=== PATIENT | female | born 1980 | race Asian ===

== ENCOUNTER 2021-09-18 09:07 | Outpatient (CLI) | payer BC, SELFPAY ==
--- NOTE | ~2021-09-18 | MM_ITS ---
EXAMINATION: MM screening zeynep BI w sharri HISTORY: Screening TECHNIQUE: Craniocaudal and mediolateral oblique 3-D tomosynthesis images were obtained and synthetic 2-D images were generated. CAD analysis was submitted and interpreted. COMPARISON: No prior mammogram is available for comparison at this institution. BREAST PARENCHYMAL COMPOSITION: The breasts are heterogeneously dense, which may obscure small masses . FINDINGS: There is no evidence of suspicious mass, calcification, or architectural distortion to sugg est malignancy in either breast. There has been no suspicious interval change. IMPRESSION: 1. No mammographic evidence of malignancy. 2. Recommend routine screening mammography in one year. BI-RADS Category 1: Negative Reviewed, dictated and finalized at location A.
== END 2021-09-18 09:08 | disposition home or self-care (01) ==
LOC: ANHIMG 09:09
PROVIDERS: PCP Emergency Medicine; Visit Provider Emergency Medicine
DX: Z12.31 Encounter for screening mammogram for malignant neoplasm of breast (principal)
CPT/HCPCS: 77063; 77067

== ENCOUNTER 2021-10-31 13:55 | Outpatient (CLI) | payer BC, SELFPAY ==
[2021-11-02 10:27] LABS: Hepatitis Be Antibody Nonreactive; Hepatitis Be Antigen Reactive
[2021-11-06 18:55] LABS: Hepatitis Delta Antibody NEGATIVE
== END 2021-10-31 13:56 | disposition home or self-care (01) ==
LOC: ANHLAB 13:58
PROVIDERS: PCP Emergency Medicine; Visit Provider Internal Medicine Gastroenterology
DX: B19.10 Unspecified viral hepatitis B without hepatic coma (principal)
CPT/HCPCS: 36415; 86692; 86707; 87350

== ENCOUNTER 2022-02-20 01:44 | Emergency (ER) | payer BC, SELFPAY ==
--- NOTE | ~2022-02-20 | CT_ITS ---
EXAMINATION: CT abdomen pelvis wo con DATE: 02/20/2022 03:51 INDICATION: Right abdominal pain to right groin pain. TECHNIQUE: Computed tomography (CT) of the abdomen and pelvis was performed without intravenous contr ast. Automated exposure control and iterative reconstruction technique were employed. The dose-length product was 251.21 mGy-cm. COMPARISON: None. FINDINGS: The visualized portions of the lung bases demonstrate mild atelectasis. No pleural effusion . The heart size is normal. No pericardial effusion. The liver, gallbladder, spleen, pancreas, and ri ght adrenal gland are normal. There is a 3.4 cm mass in left adrenal gland measuring soft tissue atte nuation. There are approximately 3 stones in right kidney measuring up to 8 mm. There is moderate rig ht hydronephrosis. There is a cluster of stones in proximal right ureter measuring up to 9 mm. Left k idney is normal. There are no dilated loops of bowel. The appendix is normal. There are no pathologic ally enlarged lymph nodes. There is no free intraperitoneal fluid. There is mild thoracolumbar spondy losis. IMPRESSION: 1. Cluster of stones in proximal right ureter with moderate right hydronephrosis. 2. Nonobstructing right kidney stones. 3. 3.4 cm left adrenal mass. In the absence of known malignancy, this finding is likely an adenoma. Reviewed, dictated and finalized at location A. IMPRESSION: 1. Cluster of stones in proximal right ureter with moderate right hydronephrosi s. 2. Nonobstructing right kidney stones. 3. 3.4 cm left adrenal mass. In the absence of known malignancy, this finding i s likely an adenoma.
[2022-02-20 01:50] VITALS: BP 155/80; PULSE 77; RESP 18; TEMP 35.8
--- NOTE | 2022-02-20 01:54 | ED.ABDPAIN ---
HPI - Abdominal Pain General Chief Complaint: Abdominal Pain Stated Complaint: Pain Source: patient Mode of arrival: EMS History of Present Illness HPI narrative: 41-year-old female with no significant past medical history presents to the ER with a 2 hour history of -- right flank pain -- nausea with 1 episode of vomiting. -- Patient is currently on her period. No fever. patient speaks Mandarin and does not understand Tajik. MD elicited complaint: flank pain Pertinent past history: none Onset (ago): hour(s) ( Started 2 hours ago) Related Data Home Medications Medication Instructions Recorded Confirmed amoxicillin 250 mg capsule 250 mg PO TID 02/20/22 02/20/22 attapulgite 750 mg/5 mL oral 750 mg PO PRN PRN Abdominal 02/20/22 02/20/22 suspension Discomfort Allergies Allergy/AdvReac Type Severity Reaction Status Date / Time No Known Allergies Allergy Verified 10/31/21 12:49 Review of Systems Review of Systems: All systems reviewed & are unremarkable except as noted in HPI and below Constitutional: Constitutional: Reports as per HPI and Reports no additional constitutional complaints Eyes: Eyes: Reports as per HPI and Reports no additional eye complaints Cardiovascular: Cardiovascular: Reports as per HPI and Reports no additional cardiovascular complaints Respiratory: Respiratory: Reports as per HPI and Reports no additional respiratory complaints Gastrointestinal: Gastrointestinal: Reports as per HPI, Reports no additional gastrointestinal complaints, Reports abdominal pain and Reports vomiting Genitourinary: Genitourinary: Reports no additional female genitourinary complaints Musculoskeletal: Musculoskeletal: Reports no additional musculoskeletal complaints and Reports as per HPI Integumentary/Breasts: Skin/Breast: Reports system reviewed and no additional complaints, except as docu and Reports as per HPI Neurologic: Reports system reviewed and no additional complaints, except as documented and Reports as per HPI Psychiatric: Psychiatric: Reports no additional psychiatric complaints and Reports as per HPI Endocrine: Endocrine: Reports no additional endocrine complaints and Reports as per HPI Hematologic/Lymphatic: Hematologic/Lymphatic: Reports no additional hematologic/lymphatic complaints and Reports as per HPI Allergic/Immunologic: Allergic/Immunologic: Reports no additional allergic/immunologic complaints and Reports as per HPI PMFSH Past Medical History Medical History Hepatitis B Family History Family History Sibling Hepatitis B Social History Social History Smoking status: Never smoker Alcohol intake: never Substance use: never Exam Const: General: ill appearing Orientation/consciousness: patient oriented x3 HENMT: Head: normal to inspection Ears: external ears normal Face/Nose/Sinus: Normal external nose present Face and sinus: normal facial exam Mouth: Yes Normal oral and palatal mucosa present Throat: posterior oropharynx normal Eyes: Conjunctivae: conjunctivae normal Pupils: Equal, round and reactive pupils present EOM: EOMs intact bilaterally Direct Ophthalmoscopy: no photophobia Neck: Neck: normal visual inspection, no lymphadenopathy and no meningeal signs Chest: Chest palpation & inspection: normal inspection of the chest Resp: Effort & Inspection: normal respiratory effort Auscultation: clear to auscultation bilaterally Cardio: Rate: regular rate Rhythm: regular rhythm GI: GI Palp: Yes Soft to palpation Other: Tenderness of the right flank without any rigidity/rebound epigastric tenderness without any rigidity/rebound Back/Spine/Pelvis: Back: CVA tenderness Skin: General skin exam: normal color Rashes: no rashes Wounds: no wounds Neuro: General: patient oriented x3, moves
[2022-02-20 02:18] LABS: Basophils Absolute Auto 0.06 K/mm3 (0.00-0.10); Basophils Percent Auto 0.4 % (0.0-1.0); Eosinophils Absolute Auto 0.03 K/mm3 (0.02-0.50); Eosinophils Percent Auto 0.2 % (1.0-6.0); Hemoglobin 12.3 g/dL (12.0-15.0); Immature Granulocyte Absolute 0.07 K/mm3 (0.00-0.00); Immature Granulocyte Percent A 0.5 % (0.0-0.0); Lymphocytes Absolute Auto 2.13 K/mm3 (1.10-4.50); Lymphocytes Percent Auto 15.8 % (18.0-42.0); Mean Corpuscular HGB Conc 32.4 g/dL (32.0-36.0); Mean Corpuscular Hemoglobin 30.3 pg (27.0-31.0); Mean Corpuscular Volume 93.6 fL (78.0-102.0); Mean Platelet Volume 10.2 fl (9.2-11.8); Monocytes Absolute Auto 1.05 K/mm3 (0.10-0.90); Monocytes Percent Auto 7.8 % (2.0-11.0); Neutrophils Absolute Auto 10.2 K/mm3 (1.7-7.2); Neutrophils Percent Auto 75.3 % (50.0-70.0); Platelet Count Result 255 K/mm3 (150-420); Red Blood Count 4.06 M/mm3 (4.20-5.40); Red Cell Distribution Width 12.5 % (11.6-14.4); White Blood Count 13.5 K/mm3 (4.8-10.8)
[2022-02-20] MEDS: PROCHLORPERAZINE EDISYLATE 10 MG/2 ML VIAL 5 MG IM (02:21)
[2022-02-20] MEDS: HYDROmorphone HCL INJ (*CRX) 2 MG/ML VIAL 0.5 MG IM (02:22)
[2022-02-20 02:29] LABS: SPREG INTERNAL CONTROL Positive; Serum Qual hCG Negative
[2022-02-20 02:31] LABS: INR 0.9; Prothrombin Time 10.4 Seconds (9.50-12.10)
[2022-02-20 02:37] LABS: Lactic Acid Reflex 1.6 mmol/L (0.4-2.0)
[2022-02-20 02:40] LABS: Alanine Aminotransferase 48 U/L (14-59); Albumin Level 3.7 g/dL (3.4-5.0); Alkaline Phosphatase 62 U/L (46-116); Anion Gap 12 mmol/L (8-16); Aspartate Amino Transferase 19 U/L (15-37); Bilirubin,Total 0.3 mg/dL (0.00-1.00); Blood Urea Nitrogen 22 mg/dL (7-18); Calcium 8.6 mg/dL (8.5-10.1); Carbon Dioxide 24 mmol/L (21-32); Chloride 107 mmol/L (98-108); Estimated CRCL calculation 76 ml/min; Estimated Glomerular Filt Rate > 60; Glucose 137 mg/dL (70-99); Osmolality Calculated 301 mOsm/kg (285-295); Potassium 3.8 mmol/L (3.5-5.1); Sodium 143 mmol/L (136-145); Total Protein 6.8 g/dL (6.4-8.2)
--- NOTE | 2022-02-20 02:48 | PC.NURSE ---
0220 IV attempted unsuccessful, x2
[2022-02-20 02:49] VITALS: BP 150/86; PULSE 90; RESP 20; O2SAT 96
[2022-02-20 02:54] LABS: Troponin I < 4.0 ng/L (0.00-60.4)
[2022-02-20 02:55] LABS: Lipase 111 U/L (73-393)
[2022-02-20 03:40] VITALS: BP 140/90; PULSE 70; RESP 20; TEMP 37.2; O2SAT 96
--- NOTE | 2022-02-20 03:58 | PC.NURSE ---
through son as interputer patient denies needing to urinate
[2022-02-20] MEDS: TAMSULOSIN HCL 0.4 MG CAPSULE PO (04:24)
[2022-02-20] MEDS: KETOROLAC 30 MG/ML VIAL (*BKC) IM (04:24)
[2022-02-20 05:18] VITALS: BP 130/78; PULSE 80; RESP 18; TEMP 37.2; O2SAT 96
[2022-02-20 05:30] LABS: Appearance Urine Cloudy (Clear); Bilirubin Urine Negative (Negative); Blood Urine 3+ (Negative); Glucose Urine UA Trace (Negative); Ketones Urine 1+ (Negative); Leukocyte Esterase Ur 3+ (Negative); Nitrate Urine Positive (Negative); Protein Urine 3+ (Negative)
[2022-02-20 05:39] LABS: Add Urine Microscopic? YES; Bacteria Urine 3+ /hpf; Color Urine Dark Red (Yellow); RBC Urine >75 /hpf (0-2); Squamous Epithelial Cell Urine Few /hpf (Few); WBC Urine >75 /hpf (0-3)
[2022-02-20] MEDS: levoFLOXacin 500 MG/D5W 100 ML 500 MG/100 ML BAG 100 MG IVPB (06:15)
[2022-02-20] MEDS: LACTATED RINGERS 1,000 ML 999 ML IV CONT (06:16)
[2022-02-20 07:36] VITALS: BP 164/94; PULSE 78; RESP 20; TEMP 36.6; O2SAT 97
--- NOTE | 2022-02-20 07:50 | PC.NURSE ---
ems here , report given to keo and yanni justice loaded to cot. alert and stable. no needs voiced at this time. family here. son given hospital information , room number and number to call to speak with nurse for updates.
--- NOTE | 2022-02-20 08:30 | PC.NURSE ---
pt departed facility with all personal belongings. chart copied and sent with pt via ems.
== END 2022-02-20 07:53 | disposition short-term general hospital (02) ==
PROVIDERS: Emergency Provider Internal Medicine Critical Care Medicine; PCP Emergency Medicine
DX: N20.0 Calculus of kidney (principal); N12 Tubulo-interstitial nephritis, not specified as acute or chronic
CPT/HCPCS: 36415; 74176; 80053; 81001; 83605; 83690; 84484; 84703; 85025; 85610; 96365; 96372; 99285; A9270; J0780; J1170; J1885; J1956; J7120

== ENCOUNTER 2022-02-20 10:57 | Observation (INO) | payer BC, SELFPAY ==
[2022-02-20] VITALS (12 sets, daily range): BP systolic 119–179; BP diastolic 88–107; PULSE 65–90; RESP 12–20; TEMP 36.1–36.4; O2SAT 96–100; BMI 25.9
--- NOTE | ~2022-02-20 | XR_ITS ---
EXAMINATION: XR abdomen/kub 1V DATE: 02/21/2022 10:22 INDICATION: Kidney stone. TECHNIQUE: A supine view of the abdomen was obtained. COMPARISON: CT abdomen and pelvis 02/21/2022 FINDINGS: There are no dilated loops of bowel. There are phleboliths in left pelvis. There is an 8 mm stone in right kidney. There is a right internal ureteral stent in expected position. There is a 5 m m stone in distal right ureter. IMPRESSION: 1. 5 mm stone in distal right ureter with right internal ureteral stent in expected position. 2. 8 mm right kidney stone. Reviewed, dictated and finalized at location A. IMPRESSION: 1. 5 mm stone in distal right ureter with right internal ureteral stent in expe cted position. 2. 8 mm right kidney stone.
--- NOTE | ~2022-02-20 | CT_ITS ---
EXAMINATION: CT abdomen pelvis wo con DATE: 02/21/2022 10:28 INDICATION: Kidney stone. TECHNIQUE: Computed tomography (CT) of the abdomen and pelvis was performed without intravenous contr ast. Automated exposure control and iterative reconstruction technique were employed. The dose-length product was 251.78 mGy-cm. COMPARISON: CT abdomen and pelvis 02/20/2022 FINDINGS: The visualized portions of the lung bases demonstrate mild atelectasis. No pleural effusion . The heart size is normal. No pericardial effusion. The liver, gallbladder, spleen, pancreas, and ri ght adrenal gland are normal. There is a 3.4 cm mass in left adrenal gland measuring soft tissue atte nuation. There are 2 mm and 8 mm stones in right kidney. There is a right internal ureteral stent in expected position. There is a 5 mm stone in distal right ureter. Left kidney is normal. There are no dilated loops of bowel. The appendix is normal. There are no pathologically enlarged lymph nodes. The re is no free intraperitoneal fluid. There is mild lumbar spondylosis. IMPRESSION: 1. 5 mm stone in distal right ureter with right internal ureteral stent in expected position. 2. 8 mm and 2 mm stones in right kidney. 3. 3.4 cm left adrenal mass. In the absence of known malignancy, this finding is likely an adenoma. Reviewed, dictated and finalized at location A. IMPRESSION: 1. 5 mm stone in distal right ureter with right internal ureteral stent in expe cted position. 2. 8 mm and 2 mm stones in right kidney. 3. 3.4 cm left adrenal mass. In the absence of known malignancy, this finding i s likely an adenoma.
--- NOTE | ~2022-02-20 | XR_ITS ---
EXAMINATION: XR retrograde pyelo w/stent RT DATE: 02/20/2022 14:56 INDICATION: Cystoscopy and retrograde right ureteral stent placement. TECHNIQUE: 11 fluoroscopic images of the abdomen and pelvis were obtained during procedure performed by Dr. Ortega. Radiologist was not present for the imaging or procedure. The amount of fluoroscopy time used during this procedure was 0.5 minutes. COMPARISON: CT dated 02/21/2020 at 3:38 AM FINDINGS: There is a density the right hemipelvis projecting caudal to the right sacral iliac joint which could represent advancement of the previous noted obstructing stone at the right ureteropelvic junction se en on the earlier CT. No other lesions suspicious for stones identified. Cannulation retrograde contr ast injections into the right ureter demonstrates mild right hydroureteronephrosis. No urothelial irr egularities identified. Subsequent images demonstrate placement of a right internal ureteral stent wi th loops formed in the right lateral pelvis and in the bladder. IMPRESSION: 1. Possible stone at the distal right ureter on the initial corn cooker images which is not visualized on s ubsequent images and may been extracted. Correlate with procedure note for further detail. 2. Mild right hydroureteronephrosis with placement of a right internal ureteral stent in expected pos ition. Reviewed, dictated and finalized at location B. IMPRESSION: 1. Possible stone at the distal right ureter on the initial corn cooker images which is not visualized on subsequent images and may been extracted. Correlate with p rocedure note for further detail. 2. Mild right hydroureteronephrosis with placement of a right internal ureteral stent in expected position.
--- NOTE | 2022-02-20 09:01 | ADMGEN ---
This patient, Crystal Godoy, was admitted to Medical Room 343-01. Patient/family oriented to hospital policies and general routines including ID bracelet, bed and alarms, visiting hours, pain management, procedures, bathroom and other care routines, personal items, smoking policy, room service/diet, and visiting hours. Information on how to activate the Rapid Response Team has been discussed. Patient/Family are encouraged to report perceived risks to care and to ask questions if they do not understand what they are told or what they should do.
[2022-02-20] MEDS: KETOROLAC 15 MG/ML VIAL (*BKC) IV PUSH (12:16)
--- NOTE | 2022-02-20 13:47 | P.CONUR_ITS ---
Assessment and Plan Assessment and plan (1) Right ureteral calculus: Code(s): N20.1 - Calculus of ureter Status: Acute Assessment and Plan: given urinary tract infection with this question of pyelonephritis we have decided to simply proceed with cystoscopy right retrograde pyelogram and right ureteral stent placement. Further management will be performed after treatment of acute problem with infection. Will need to evaluate whether will need ureteroscopy with stone extractions verses lithotripsy based on postoperative KUB/CT (2) Hydronephrosis, right: Code(s): N13.30 - Unspecified hydronephrosis Status: Acute Assessment and Plan: see above (3) Pyelonephritis: Code(s): N12 - Tubulo-interstitial nephritis, not specified as acute or chronic Status: Acute Assessment and Plan: see above Urology Consult Note HPI Date Seen: 02/20/22 Time Seen: 13:47 Requesting Physician: Corey Ogden MD Primary Care Provider: Balwinder Wylie MD Consult Narrative Reason for consult: Obstructing right proximal ureteral calculus with UTI Narrative: Crystal Godoy is a 41 year old female who was transferred from [facility] as a direct admit with an obstructing cluster of stones in the proximal right ureter measuring up to 9 mm. She also has urinary tract infections. Patient speaks only Mandarin in information is obtained through an historical interpreter. Patient denies any prior history of stones. Denied fevers at home. CT scan at [facility] revealed a cluster of stones in the proximal ureter measuring 9 mm. She also has some renal calculi on the right. Patient is transferred for further urologic management at this time. Review of Systems Review of Systems: All systems reviewed & are unremarkable except as noted in HPI and below PMFSH Past Medical History Medical History Hepatitis B Family History Family History Sibling Hepatitis B Social History Social History Smoking status: Never smoker Alcohol intake: never Substance use: never Substance use type: does not use Spiritual care concerns: No Meds Home Medications and Allergies Allergies Allergy/AdvReac Type Severity Reaction Status Date / Time No Known Allergies Allergy Verified 02/20/22 09:02 Vital Signs Vital Signs - 24 hr 02/20/22 10:56 Temperature 36.4 C L Pulse Rate 87 Respiratory Rate 18 Blood Pressure 144/94 H Pulse Oximetry 99 Exam Const: General: cooperative; No comfortable Resp: Effort & Inspection: normal respiratory effort Cardio: Rate: regular rate Rhythm: regular rhythm
[2022-02-20] MEDS: HYDROmorphone HCL INJ (*CRX) 1 MG/ML SYR IV PUSH (13:49)
--- NOTE | 2022-02-20 13:54 | PC.NURSE ---
Pt left floor to surgery via stretcher. Family went with. Consent completed with jennyfer translater and MD present.
--- NOTE | 2022-02-20 14:03 | P.PNAN_ITS ---
Anes - Initial Pre Proc Eval Procedure: Operation Date: 02/20/22 15:00 Proposed Procedures p Cystoscopy,Right Retrograde Pyelogram,Right Stent Placement - Ken Ortega MD Date/Time: 02/20/22 14:03 Surgeon: Corey Ogden MD Pre Op Diagnosis: Kidney Stone, UTI Patient Data Age: 41 Gender: F Height: 1.57 m Weight: 64.3 kg Last Vital Signs Temp 36.4 C L 02/20/22 10:56 Pulse 87 02/20/22 10:56 Resp 18 02/20/22 10:56 BP 144/94 H 02/20/22 10:56 Pulse Ox 99 02/20/22 10:56 Allergies Allergy/AdvReac Type Severity Reaction Status Date / Time No Known Allergies Allergy Verified 02/20/22 09:02 Patient hx anesthesia problems: none Family hx anesthesia problems: none Results Review: All pre-operative results and documents have been reviewed as part of the pre- operative evaluation. [facility] Past Medical History Medical History Hepatitis B Family History Family History Sibling Hepatitis B Social History Social History Smoking status: Never smoker Alcohol intake: never Substance use: never Substance use type: does not use Spiritual care concerns: No Anes - Eval Final PreProcedure Day of Procedure 02/20/22 14:03 Patient weight: normal Heart: regular rate and rhythm Lungs: clear to auscultation Airway: Mallampati scale class II Neurological: alert and oriented Last oral intake: >/= 8 hours ASA classification: II Emergent: no Anesthetic plan: proceed Anesthesia type and monitoring: general GIVS and standard monitoring Results Review: All pre-operative results and documents have been reviewed as part of the pre- operative evaluation. Informed Consent: The patient's anesthetic plan and its attendant risks and benefits were discussed with the patient/family/POA. Questions were solicited and answers provided to the satisfaction of the patient/family/POA.
[2022-02-20] MEDS: LACTATED RINGERS 1,000 ML 30 ML IV CONT (14:06)
[2022-02-20] MEDS: ceFAZolin 2 GM/D5W 50 ML 2 GM/50 ML BAG IVPB (14:16)
--- NOTE | 2022-02-20 14:23 | SUR.PREOP ---
son at side ,able to explain pre op instructions with son,
[2022-02-20] MEDS: LIDOCAINE HCL 2% GEL UROJET 10 ML PKG MUCOUS MEM (14:37)
--- NOTE | 2022-02-20 14:49 | W.PM.PROC2 ---
Procedure Note - Detailed Date of Procedure 02/20/22 Pre-op Diagnosis Obstructing right ureteral calculi with hydronephrosis and UTI Post-op Diagnosis Same Procedure Performed Cystoscopy, right retrograde pyelogram, right ureteral stent placement 4.8 [place] contour Surgeon Ken Ortega MD Anesthesia General Description of Procedure Patient is taken the operative suite correctly identified. Once anesthesia was obtained she was placed in dorsal lithotomy position and prepped and draped usual sterile fashion. Twenty-two [place]an scope was inserted the bladder. There were no tumors noted. Right ureteral orifice was cannulated with a Arimo and a pyelogram was performed. I could not get contrast to go into the proximal ureter. A Bentson wire was then inserted she has some tortuosity ordered stent in the distal ureter. I did needed to place a angled Glidewire and manipulate that up to the renal pelvis. She also has some tortuosity of the proximal ureter. Once we advanced the wire up to the renal pelvis a Arimo was inserted. Urine was obtained from the right renal pelvis and sent for culture. Pyelogram was performed to confirm placement. A 4.8 [place] contour stent was then placed with the proximal end coiled in the renal pelvis there was some tortuosity proximally and the distal end was in the bladder. 2% viscous lidocaine was inserted into the urethra patient is taken recovery stable condition. Will obtain a renal CT KUB in the morning to see where the stone is to leave localized given it was difficult to see active fluoroscopy. Drains Yes Packing No Pathology Yes Complications No immediate complications Condition Stable Disposition PACU
--- NOTE | 2022-02-20 16:12 | PM.IMHP ---
H&P: [facility] History of Present Illness Date/Time: 02/20/22 16:12 Chief Complaint: 41-year-old female, Mandarin-speaking only, presenting with hematuria x 2 weeks. She presented to [facility] were urology was consulted and transfer was arranged to [facility]. Once here, translation services were arranged and further history was obtained. She states she has also had right side and back pain for the last day or 2. She has noticed some chills but denies any fevers. She also admits to some nausea, vomiting and diarrhea. No blood noted in her stool. She denies chest pain or shortness of breath. Of note, patient also states that her period has been very irregular and made it more challenging to determine if she was having hematuria or vaginal bleeding. She states she thinks she is currently on her period. In the ER, the patient received a dose of Levaquin, Dilaudid, Toradol, IV fluids and Flomax. CT abdomen and pelvis showed cluster of stones in the proximal right ureter with moderate right hydronephrosis as well as nonobstructing right kidney stones. There is also an incidental adrenal mass found on the left. Urologist is at bedside and states he is taking her to the OR to place a ureteral stent on the right for obstructing stone with associated hydronephrosis seen on CT scan done in [place]. Plan is for patient to go home tomorrow on antibiotics with outpatient follow-up in the next 1-2 weeks to have the stent removed and the other stones remaining in the right kidney addressed with either lithotripsy or ureteroscopy. Review of Systems Review of Systems: 12 point review of systems was assessed and was negative except as noted in the HPI [facility] Past Medical History Medical History (Updated 02/20/22 @ 16:33 by Yanci Izquierdo DO) Gastritis Hepatitis B Menometrorrhagia Sigmoid polyp Family History Family History (Updated 02/20/22 @ 16:32 by Yanci Izquierdo DO) Sibling Hepatitis B Father Hypertension Social History Social History Smoking status: Never smoker Alcohol intake: never Substance use: never Substance use type: does not use Spiritual care concerns: No Meds Home Medications and Allergies Allergies Allergy/AdvReac Type Severity Reaction Status Date / Time No Known Allergies Allergy Verified 02/20/22 09:02 Vital Signs Vital Signs - 24 hr 02/20/22 10:56 02/20/22 14:01 02/20/22 14:54 Temperature 97.5 F L 97.3 F L 97.0 F L Pulse Rate 87 65 78 Respiratory Rate 18 16 14 Blood Pressure 144/94 H 165/99 H 153/104 H Pulse Oximetry 99 96 97 Oxygen Delivery Room Air Room Air 02/20/22 15:10 02/20/22 15:24 02/20/22 15:40 Temperature Pulse Rate 74 74 70 Respiratory Rate 12 16 14 Blood Pressure 153/103 H 141/104 H 135/88 Pulse Oximetry 97 98 98 Oxygen Delivery Room Air Room Air Room Air Exam Narrative: General: Appears to be in moderate distress secondary to pain, alert and oriented per baseline HEENT: Atraumatic, normocephalic, mucous membranes moist CV: Regular rate and rhythm, S1, S2 Lungs: Clear to auscultation bilaterally, no rales or crackles noted, no wheezes, good air entry Abdomen: Soft, nontender, nondistended Extremities: Normal to inspection, right-sided CVA tenderness Skin: No rashes noted, no lesions or wounds seen Psych: Euthymic, normal affect Assessment and Plan Assessment and plan (1) Hydronephrosis, right: Code(s): N13.30 - Unspecified hydronephrosis Status: Acute Assessment and Plan: Status post right ureteral stent per Urology Continue antibiotics, follow-up urine culture Anticipate discharge home tomorrow on oral antibiotics outpatient follow-up by Urology (2) Right ureteral calculus: Code(s): N20.1 - Calculus of ureter Status: Acute (3) Calculus of kidney: Code(s): N20.0 - Calculus of kidney Status: Acute (4) Pyelonephritis: Code(s)
[2022-02-20] MEDS: TAMSULOSIN HCL 0.4 MG CAPSULE PO (16:30)
[2022-02-20] MEDS: DEXTROSE 5%/LACTATED RINGERS 1,000 ML 100 ML IV CONT (16:31)
[2022-02-21 01:33] VITALS: BP 126/76; PULSE 70; RESP 16; TEMP 36.3; O2SAT 100
[2022-02-21] MEDS: DEXTROSE 5%/LACTATED RINGERS 1,000 ML 100 ML IV CONT (02:43)
[2022-02-21 05:36] VITALS: BP 135/86; PULSE 88; RESP 16; TEMP 36.6; O2SAT 99
[2022-02-21] MEDS: TAMSULOSIN HCL 0.4 MG CAPSULE PO (08:47)
[2022-02-21 09:36] VITALS: BP 135/93; PULSE 74; RESP 18; TEMP 36.6; O2SAT 97
--- NOTE | 2022-02-21 10:15 | WPDANESPN ---
Anes - Prog Note Post-Op Date/Time: 02/21/22 10:15 Cardiovascular status: normal Respiratory status: normal Airway patency: baseline Mental status: baseline Post-Op hydration status: normal Vital Signs: Last Vital Signs Temp 36.6 C 02/21/22 05:36 Pulse 88 02/21/22 05:36 Resp 16 02/21/22 05:36 BP 135/86 02/21/22 05:36 Pulse Ox 99 02/21/22 05:36 O2 Del Method Room Air 02/20/22 20:00 Pain Score (VAS): 210 I/O: Intake & Output 02/20/22 02/21/22 02/21/22 23:59 07:59 15:59 Intake Total 290 1050 240 Output Total 0 Balance 290 1050 240 Post-procedural complaints: none Patient Feedback: Patient satisfied with anesthetic care.
--- NOTE | 2022-02-21 10:26 | PM.DS ---
DS: Admitting Diagnosis Discharge Date February 22, 2022 Admitting Diagnosis Obstructing ureteral stone with hydronephrosis DS: Discharge Diagnosis Discharge Diagnosis (1) Hydronephrosis, right: Code(s): N13.30 - Unspecified hydronephrosis Status: Acute Assessment and Plan: Status post right ureteral stent per Urology Continue antibiotics, follow-up urine culture Anticipate discharge home tomorrow on oral antibiotics outpatient follow-up by Urology (2) Right ureteral calculus: Code(s): N20.1 - Calculus of ureter Status: Acute (3) Calculus of kidney: Code(s): N20.0 - Calculus of kidney Status: Inactive (4) Pyelonephritis: Code(s): N12 - Tubulo-interstitial nephritis, not specified as acute or chronic Status: Inactive (5) Hepatitis B: Code(s): B19.10 - Unspecified viral hepatitis B without hepatic coma Status: Acute (6) Gastritis: Code(s): K29.70 - Gastritis, unspecified, without bleeding Status: Acute Plan DVT prophylaxis with SCDs GI prophylaxis not indicated Code status full code DS: Summary Hospital Course Hospital Course: 41-year-old female with no significant past medical history, Mandarin speaking only, presenting with flank pain, chills and dysuria. She was found to have an obstructing ureteral stone and taken to the OR by Urology for ureteral stent. She was placed on Levaquin prophylaxis and culture results came back negative for any infection. However, in light of the significant obstruction and risk for infection, will complete a 5 day course of Levaquin, she has 3 days left. She was discharged in good condition with close outpatient follow-up. Time Spent with Patient Time attestation: Total time spent providing and/or coordinating discharge services: Exam Narrative: General: Appears to be in moderate distress secondary to pain, alert and oriented per baseline HEENT: Atraumatic, normocephalic, mucous membranes moist CV: Regular rate and rhythm, S1, S2 Lungs: Clear to auscultation bilaterally, no rales or crackles noted, no wheezes, good air entry Abdomen: Soft, nontender, nondistended Extremities: Normal to inspection, right-sided CVA tenderness Skin: No rashes noted, no lesions or wounds seen Psych: Euthymic, normal affect Discharge Plan Discharge Attending physician on discharge: Yanci Izquierdo Consulting providers: Ken Ortega Discharging Clinician: Yanci Izquierdo Anticipated Discharge Date/Time: 02/22/22 10:22 Patient Disposition: Home, Self-Care Activity: as tolerated Diet: as tolerated Discharge Instructions: Follow up with Zoie DOMINGUEZ next week to repeat your urine culture and to discuss your second kidney stone surgery. Call the office to make an appointment. Patient Instructions: Antibiotic Form Stand Alone Forms: General Discharge Information Follow-up/Referrals: Zoie Trammell APRN [Advanced Practice Nurse] - Balwinder Wyile MD [Primary Care Provider] - Ken Ortega MD [Physician] - Discharge Medications: New levofloxacin 500 mg Tablet 500 mg PO DAILY 3 Days Qty: 3 0RF Date of admission: 02/20/22 10:57 Primary Care Provider: Balwinder Wylie Admitting Provider: Corey Ogden M.A. Attending physician on admission: Corey Ogden M.A. Condition: Stable
--- NOTE | 2022-02-21 14:00 | WPDUROPN2 ---
Progress Note: A&P Assessment and Plan (1) Right renal stone: Code(s): N20.0 - Calculus of kidney Status: Acute (2) UTI (urinary tract infection): Code(s): N39.0 - Urinary tract infection, site not specified Status: Acute (3) Right ureteral calculus: Code(s): N20.1 - Calculus of ureter Status: Acute Assessment and Plan: Tolerating stent well. Plan to keep in the hospital until culture results. She will need to f/u in one week in the office for a repeat urine culture and to discuss her outpatient stone surgery of a Cystoscopy, right ureteroscopy with stent exchange, stone extraction, right retrograde pyelogram, possible holmium laser and right ESWL. We discussed this via mixer operator as she doesn't speak Armenian and she provides a thorough understanding. IV infiltrated, therefore we will switch to PO Levaquin and tailor antibiotics to culture results. Ok to discharge home when culture results on appropriate antibiotics. Subjective Subjective Date/Time Seen: 02/21/22 14:00 Cystoscopy, right stent placement, right retrograde pyelogram. Patient doing well, tolerating stent, diet and activity. Her urine culture is still pending and she is switching to PO Levaquin d/t a bad IV. Post Op day: 1 Review of Systems Cardiovascular: Cardiovascular: Denies chest pain Respiratory: Respiratory: Reports no additional respiratory complaints Gastrointestinal: Gastrointestinal: Denies abdominal pain, Denies nausea and Denies vomiting Genitourinary: Genitourinary: Denies hematuria, Denies dysuria, Denies pelvic pain, Denies flank pain, Denies urinary incontinence, Denies urinary hesitancy and Denies urinary urgency Exam Const: General: cooperative Resp: Effort & Inspection: normal respiratory effort Cardio: Rate: regular rate : General: Yes no CVA tenderness Extrem: Right lower extremity: no edema Left lower extremity: no edema Objective Data Vital Signs Vital Signs: Vital Signs - 24 hr 02/20/22 14:01 02/20/22 14:54 02/20/22 15:10 Temperature 97.3 F L 97.0 F L Pulse Rate 65 78 74 Respiratory Rate 16 14 12 Blood Pressure 165/99 H 153/104 H 153/103 H Pulse Oximetry 96 97 97 Oxygen Delivery Room Air Room Air Room Air 02/20/22 15:24 02/20/22 15:40 02/20/22 17:24 Temperature Pulse Rate 74 70 Respiratory Rate 16 14 Blood Pressure 141/104 H 135/88 Pulse Oximetry 98 98 Oxygen Delivery Room Air Room Air Room Air 02/20/22 16:00 02/20/22 16:15 02/20/22 16:45 Temperature 97.3 F L 97.5 F L 97.2 F L Pulse Rate 70 76 75 Respiratory Rate 18 18 18 Blood Pressure 173/104 H 157/107 H 179/103 H Pulse Oximetry 100 100 99 Oxygen Delivery 02/20/22 17:45 02/20/22 20:00 02/20/22 21:36 Temperature 97.6 F 97.3 F L Pulse Rate 72 72 90 Respiratory Rate 20 20 16 Blood Pressure 154/99 H 119/88 Pulse Oximetry 99 99 99 Oxygen Delivery Room Air 02/21/22 01:33 02/21/22 05:36 02/21/22 09:36 Temperature 97.3 F L 97.8 F 97.9 F Pulse Rate 70 88 74 Respiratory Rate 16 16 18 Blood Pressure 126/76 135/86 135/93 H Pulse Oximetry 100 99 97 Oxygen Delivery 02/21/22 08:00 Temperature Pulse Rate Respiratory Rate Blood Pressure Pulse Oximetry Oxygen Delivery Room Air Intake/Output Intake/Output: Intake & Output 02/18/22 02/19/22 02/20/22 02/21/22 23:59 23:59 23:59 23:59 Intake Total 840 1290 Output Total 400 0 Balance 440 1290 Meds/Results Medications: Active Medications Generic Name Dose Route Start Last Admin Trade Name Freq PRN Reason Stop Dose Admin Hydrocodone Bitart/Acetaminophen 1 tab 02/21/22 05:00 Hydrocodone/Acetaminophen (*Crx) 5-325 Mg Tablet PO Q4H PRN Pain Rated 1-3 Hydrocodone Bitart/Acetaminophen 2 tab 02/21/22 05:00 Hydrocodone/Acetaminophen (*Crx) 5-325 Mg Tablet PO Q4H PRN Pain Rated 4-6 Hydromorphone HCl 0.5 mg 02/20/22 15:51 Hydromorphone Hcl Inj (*Crx) 1 Mg/Ml Syr
[2022-02-21 14:37] LABS: Basophils Percent Auto 0.2 % (0.2-1.2); Eosinophils Percent Auto 0.2 % (0-4.4); Hematocrit 40.3 % (37.0-47.0); Hemoglobin 13.2 g/dL (12.0-15.0); Immature Granulocyte Absolute 0.06 K/mm3 (0.00-0.031); Immature Granulocyte Percent A 0.5 % (0-0.5); Lymphocytes Absolute Auto 1.16 K/mm3 (0.9-3.2); Mean Corpuscular HGB Conc 32.8 g/dl (32-36); Mean Corpuscular Hemoglobin 30.5 pg (26-34); Mean Corpuscular Volume 93.1 fl (80-100); Mean Platelet Volume 9.8 fl (7.4-10.4); Monocytes Absolute Auto 1.2 K/mm3 (0.1-0.6); Monocytes Percent Auto 9.4 % (2.6-8.5); Neutrophils Absolute Auto 10.4 K/mm3 (1.3-6.7); Neutrophils Percent Auto 80.7 % (45.5-73.1); Platelet Count Result 257 k/mm3 (150-375); Red Blood Count 4.33 M/mm3 (4.2-5.4); Red Cell Distribution Width 12.7 % (11.5-14.5); White Blood Count 12.9 K/mm3 (4.5-10.0)
[2022-02-21 20:02] VITALS: BP 138/86; PULSE 73; RESP 18; TEMP 36.7; O2SAT 99
[2022-02-22 04:00] VITALS: BP 134/83; PULSE 75; RESP 18; TEMP 36.4; O2SAT 98
[2022-02-22] MEDS: TAMSULOSIN HCL 0.4 MG CAPSULE PO (10:37)
[2022-02-22] MEDS: levoFLOXacin 500 MG TABLET PO (10:37)
== END 2022-02-22 11:52 | disposition home or self-care (01) ==
PROVIDERS: Urology; Admitting Provider Student in an Organized Health Care Education/Training Program; PCP Emergency Medicine; Visit Provider Student in an Organized Health Care Education/Training Program
PROC: (CPT 52352; principal; 2022-02-20 15:00)
DX: N13.2 Hydronephrosis with renal and ureteral calculous obstruction (principal); N12 Tubulo-interstitial nephritis, not specified as acute or chronic; N39.0 Urinary tract infection, site not specified; Z86.19 Personal history of other infectious and parasitic diseases; K29.70 Gastritis, unspecified, without bleeding
CPT/HCPCS: 52332; 36415; 74018; 74176; 74420; 85025; 87086; A9270; C1758; C1769; C2617; G0378; J0690; J1170; J1885; J1956; J2704; J3010; J7120; J7121; Q9966

== ENCOUNTER 2022-02-23 20:26 | Emergency (ER) | payer BC, SELFPAY ==
[2022-02-23 21:26] VITALS: BP 151/101; PULSE 89; RESP 16; TEMP 36.8; O2SAT 100
[2022-02-23 21:45] LABS: Add Urine Microscopic? YES; Appearance Urine Cloudy (Clear); Bilirubin Urine Negative (Negative); Blood Urine 3+ (Negative); Color Urine Yellow (Yellow); Glucose Urine UA Negative (Negative); Ketones Urine 1+ mg/dL (Negative); Leukocyte Esterase Ur Trace LEU/UL (Negative); Mucus Urine Rare /lpf; Nitrate Urine Negative (Negative); Protein Urine Negative (Negative); RBC Urine >75 /hpf (0-2); Specific Grav Ur 1.016 (1.001-1.035); Squamous Epithelial Cell Urine Moderate /hpf (Few); Urobilinogen Urine Negative mg/dL (<2.0)
--- NOTE | 2022-02-23 21:59 | PC.NURSE ---
patient walked out without difficulty.
== END 2022-02-23 21:55 | disposition left against medical advice (07) ==
LOC: ANHED 22:03
PROVIDERS: Emergency Provider Emergency Medicine; PCP Emergency Medicine
DX: R10.9 Unspecified abdominal pain (principal)
CPT/HCPCS: 81001; 99199

== ENCOUNTER 2022-02-25 08:54 | Day surgery (SDC) | payer BC, SELFPAY ==
[2022-02-25] VITALS (10 sets, daily range): BP systolic 141–160; BP diastolic 95–111; PULSE 65–83; RESP 11–16; TEMP 36.2–37.3; O2SAT 98–100
--- NOTE | ~2022-02-25 | XR_ITS ---
EXAMINATION: XR abdomen/kub 1V INDICATION: Ureterolithiasis TECHNIQUE: Supine views of the abdomen were obtained on 2 radiographs. COMPARISON: 02/21/2022 FINDINGS: A right internal ureteral stent is in expected position. A 6 mm stone of the distal right u reter adjacent to the stent demonstrates slight distal migration. There is an 8 mm stone of the right kidney. No additional urolithiasis is identified. A moderate volume of colonic stool is present. The re are phleboliths of the pelvis. The bowel gas pattern is normal. IMPRESSION: 1. Right internal ureteral stent in expected position with slight interval distal migration of a righ t distal ureteral stone adjacent to the stent. 2. 8mm right kidney stone. Reviewed, dictated and finalized at location A. IMPRESSION: 1. Right internal ureteral stent in expected position with slight interval dist al migration of a right distal ureteral stone adjacent to the stent. 2. 8mm right kidney stone.
--- NOTE | ~2022-02-25 | XR_ITS ---
EXAMINATION: XR retrograde pyelo w/stent RT DATE: 02/25/2022 14:55 CDT INDICATION: Stone extraction. TECHNIQUE: 8 fluoroscopic images of the right abdomen and pelvis were obtained during right retrograd e pyelography with stent placement performed by the surgeon. I was not present in the operating room. Fluoroscopy exposure time was 24.9 seconds. DAP [id number]. COMPARISON: CT 02/21/2022, x-ray abdomen 02/25/2022 FINDINGS: Wire access, followed by catheter access to the right upper collecting system. Contrast fills a moder ately dilated right ureter. Post deployment, the proximal stent coil projects over the right renal pe lvis and the distal coil projects over the bladder. IMPRESSION: Fluoroscopic documentation of right retrograde pyelography with stent placement. Please refer to the operative note for complete procedural details . Reviewed, dictated and finalized at location K. IMPRESSION: Fluoroscopic documentation of right retrograde pyelography with stent placement . Please refer to the operative note for complete procedural details .
[2022-02-25 09:20] LABS: Basophils Percent Auto 0.3 % (0.2-1.2); Eosinophils Percent Auto 0.2 % (0-4.4); Hematocrit 39.7 % (37.0-47.0); Immature Granulocyte Absolute 0.05 K/mm3 (0.00-0.031); Immature Granulocyte Percent A 0.4 % (0-0.5); Lymphocytes Absolute Auto 0.88 K/mm3 (0.9-3.2); Lymphocytes Percent Auto 6.8 % (18.3-44.2); Mean Corpuscular HGB Conc 32.7 g/dl (32-36); Mean Corpuscular Hemoglobin 30.2 pg (26-34); Mean Corpuscular Volume 92.1 fl (80-100); Monocytes Absolute Auto 1.3 K/mm3 (0.1-0.6); Monocytes Percent Auto 10.3 % (2.6-8.5); Neutrophils Absolute Auto 10.6 K/mm3 (1.3-6.7); Platelet Count Result 284 k/mm3 (150-375); Red Blood Count 4.31 M/mm3 (4.2-5.4); Red Cell Distribution Width 12.5 % (11.5-14.5); White Blood Count 12.9 K/mm3 (4.5-10.0)
[2022-02-25 09:34] LABS: Alanine Aminotransferase 30 U/L (6-35); Albumin Level 4.1 g/dL (3.5-5.1); Alkaline Phosphatase 56 U/L (38-126); Anion Gap 11 mmol/L (8-16); Aspartate Amino Transferase 22 U/L (14-36); Bilirubin,Total 0.8 mg/dL (0.2-1.3); Blood Urea Nitrogen 15 mg/dL (7-17); Carbon Dioxide 24 mmol/L (22-30); Chloride 105 mmol/L (98-107); Estimated Glomerular Filt Rate > 60; Glucose 111 mg/dL (65-110); Potassium 3.5 mmol/L (3.4-5.0); Sodium 140 mmol/L (137-145)
--- NOTE | 2022-02-25 09:40 | ED.ABDPAIN ---
HPI - Abdominal Pain General Chief Complaint: Abdominal Pain Stated Complaint: flank pain Time Seen by Provider: 02/25/22 09:13 Source: patient Mode of arrival: ambulatory Limitations: no limitations History of Present Illness HPI narrative: This is a 41 year old female that presents to the ER for right flank pain. Ongoing over the last couple of days. Reports she recently had a stent placement. She has had worsening flank pain and right lower quadrant pain since. She has been taking Tylenol with little relief. Denies fever, vomiting, dysuria or hematuria. Related Data Allergies Allergy/AdvReac Type Severity Reaction Status Date / Time No Known Allergies Allergy Verified 02/25/22 09:07 Review of Systems Review of Systems: CONSTITUTIONAL: Denies fever GASTROINTESTINAL: Reports abdominal pain. Denies nausea, vomiting GENITOURINARY: Denies dysuria or hematuria. All systems reviewed & are unremarkable except as noted in HPI and below PMFSH Past Medical History Medical History Gastritis Hepatitis B Menometrorrhagia Sigmoid polyp Family History Family History Sibling Hepatitis B Father Hypertension Social History Social History Smoking status: Never smoker Alcohol intake: never Substance use: never Substance use type: does not use Spiritual care concerns: No Exam Narrative: GENERAL: Well-appearing, well-nourished, and in no acute distress. HEAD: Normocephalic, atraumatic. EYES: EOMI. CHEST: Clear to auscultation. No respiratory distress. No wheezes rales or rhonchi HEART: Regular rate and rhythm. No murmur heard. Normal peripheral pulses. ABDOMEN: Soft, nondistended, normal active bowel sounds. Tender to palpation in the right lower quadrant, without guarding EXTREMITIES: Normal range of motion. No edema. SKIN: Warm, dry, no rash. NEURO: No focal deficits. Alert and oriented x3. PSYCH: Normal mood and affect Course Consultations Consultation #1: Spoke with Urology, Zoie, palpation and work-up. Patient will be taken to the OR for definitive management of her stone Date: 02/25/22 Vital Signs Vital signs: Vital Signs Pulse Rate 83 02/25/22 09:04 Respiratory Rate 16 02/25/22 09:04 Blood Pressure 154/104 H 02/25/22 09:04 Pulse Oximetry 99 02/25/22 09:04 Oxygen Delivery Room Air 02/25/22 09:04 Temperature 97.2 F L 02/25/22 15:21 Pulse Rate 65 02/25/22 17:00 Respiratory Rate 12 02/25/22 17:00 Blood Pressure 143/97 H 02/25/22 17:00 Pulse Oximetry 98 02/25/22 16:06 Oxygen Delivery Room Air 02/25/22 17:00 Oxygen Flow Rate 10 02/25/22 15:36 MDM - Abdominal Pain MDM Narrative Medical decision making narrative: Patient presents to the emergency department for right flank and right lower quadrant pain ongoing over the last couple of days. Had a right ureteral stent placed by Dr. Ortega. She is afebrile and nontoxic-appearing. Her vitals are stable. CBC with mild leukocytosis to 12.9. Metabolic panel without concerning findings. UA without evidence of infection. Likely a contaminated catch. This will be sent for culture. KUB abdomen x-ray shows right internal ureteral stent in expected position with slight interval distal migration of the right distal ureteral stone. Patient and family updated on case findings. Spoke with Urology, Zoie, palpation and work-up. Patient will be taken to the OR for definitive management of her stone Lab Data Attestation: I reviewed the patient's lab results. Result diagrams: 02/25/22 09:15 02/25/22 09:15 Labs: Lab Results 02/25/22 02/25/22 02/25/22 Range/Units 09:15 09:15 11:00 WBC 12.9 H (4.5-10.0) K/mm3 RBC 4.31 (4.2-5.4) M/mm3 Hgb 13.0 (12.0-15.0) g/dL Hct 39.7 (37.0-47.0) % MCV
[2022-02-25] MEDS: MORPHINE SULFATE (*CRX) 4 MG/ML INJ IV PUSH (10:23)
[2022-02-25] MEDS: SODIUM CHLORIDE 0.9% IV 1,000 ML 999 ML IV CONT (10:23)
[2022-02-25] MEDS: ONDANSETRON INJ 4 MG/2 ML VIAL IV PUSH (10:23)
--- NOTE | 2022-02-25 10:30 | PC.NURSE ---
pt to go to or around 1200 today
[2022-02-25 11:12] LABS: Appearance Urine Clear (Clear); Bilirubin Urine Negative (Negative); Blood Urine 3+ (Negative); Color Urine Yellow (Yellow); Glucose Urine UA Negative (Negative); Ketones Urine Negative (Negative); Leukocyte Esterase Ur 1+ LEU/UL (Negative); Nitrate Urine Negative (Negative); Protein Urine Negative (Negative); Specific Grav Ur 1.015 (1.001-1.035); Urobilinogen Urine 0.2 mg/dL (<2.0)
[2022-02-25 11:29] LABS: Add Urine Microscopic? YES
[2022-02-25 11:31] LABS: Bacteria Urine Trace /hpf; Squamous Epithelial Cell Urine Moderate /hpf (Few)
[2022-02-25 11:32] LABS: Mucus Urine Rare /lpf
--- NOTE | 2022-02-25 13:20 | WPDURCON ---
Assessment and Plan Assessment and plan (1) Right renal stone: Code(s): N20.0 - Calculus of kidney Status: Acute Assessment and Plan: Will need an ESWL in the future as an outpatient, no further evaluation at this time. (2) Right ureteral calculus: Code(s): N20.1 - Calculus of ureter Status: Acute Assessment and Plan: Obtain Consent: Cystoscopy, right ureteroscopy with stone extraction, right stent exchange, right retrograde pyelogram, possible holmium laser. Keep NPO. Plan to go to the OR this afternoon with Dr. Ortega then discharge home afterward. (3) Hydronephrosis, right: Code(s): N13.30 - Unspecified hydronephrosis Status: Acute Urology Consult Note HPI Date Seen: 02/25/22 Time Seen: 12:45 Requesting Physician: Ken Ortega MD Primary Care Provider: Balwinder Wylie MD Consult Narrative Reason for consult: right ureteral stone Narrative: Crystal Godoy is a 41 year old female who is well known to our practice as she underwent a Cystoscopy with right ureteral stent placement and retrograde pyelogram with Dr. Ortega on 02/21/22 last week here at [place] d/t a 5mm distal right ureteral stone seen on CT scan. She also had right hydronephrosis and an 8mm stone in the right kidney. A post op KUB confirms her right stent is in place with the right ureteral stone adjacent in the distal ureter and the right renal stone is also visible. She returned to the ER today after being discharged on Thursday, d/t ongoing pain, nausea and vomiting for the past 3 days. She states her pain started 2 hours after her discharge on Thursday and she has only had one hour of relief after taking Tylenol then the pain comes right back accompanied with nausea and vomiting. Her urine culture from 02/20/22 was negative and a repeat culture was done today. Her UA isn't suggestive of a UTI, she denies hematuria and dysuria as well. She is afebrile with a stable WBC of 12.9 and creatinine of 0.70. Our communication was done via [facility] progressive care unit. Review of Systems Cardiovascular: Cardiovascular: Denies chest pain Respiratory: Respiratory: Reports no additional respiratory complaints Gastrointestinal: Gastrointestinal: Reports abdominal pain, Reports nausea and Reports vomiting Genitourinary: Genitourinary: Denies hematuria, Denies dysuria, Reports pelvic pain, Reports flank pain and Reports urinary urgency [facility] Past Medical History Medical History Gastritis Hepatitis B Menometrorrhagia Sigmoid polyp Family History Family History Sibling Hepatitis B Father Hypertension Social History Social History Smoking status: Never smoker Alcohol intake: never Substance use: never Substance use type: does not use Spiritual care concerns: No Meds Home Medications and Allergies Home Medications Medication Instructions Recorded Confirmed Type levofloxacin 500 mg tablet 500 mg PO DAILY 3 days #3 tabs 02/21/22 Rx Allergies Allergy/AdvReac Type Severity Reaction Status Date / Time No Known Allergies Allergy Verified 02/25/22 09:07 Vital Signs Vital Signs - 24 hr 02/25/22 09:04 02/25/22 09:19 02/25/22 12:44 Temperature 98.6 F Pulse Rate 83 Respiratory Rate 16 16 Blood Pressure 154/104 H Pulse Oximetry 99 Oxygen Delivery Room Air Exam Const: General: comfortable Resp: Effort & Inspection: normal respiratory effort Cardio: Rate: regular rate GI: GI Palp: Yes Soft to palpation and Yes Tenderness to palpation present (GI) (RLQ) : Other: right flank Extrem: General: no edema Results Labs CBC & Chem 7: 02/25/22 09:15 02/25/22 09:15 Labs: Short CBC 02/25/22 Range/Units 09:15 WBC 12.9 H (4.5-10.0) K/mm3
--- NOTE | 2022-02-25 13:20 | SUR.PREOP ---
Used live video solutions market consultant to discuss expectations and concent for surgery. Patient acknowledges understanding.
--- NOTE | 2022-02-25 13:20 | WPDANESEPPF ---
Anes - Initial Pre Proc Eval Procedure: Operation Date: 02/25/22 15:30 Proposed Procedures p Cystoscopy, Retrograde Pyelogram, Possible Stone Extraction, Right Stent Exchange - Ken Ortega MD Date/Time: 02/25/22 13:20 Surgeon: Ken Ortega MD Pre Op Diagnosis: flank pain Patient Data Age: 41 Gender: F Height: Weight: 61.4 kg Last Vital Signs Temp 37.3 C 02/25/22 12:50 Pulse 74 02/25/22 12:50 Resp 16 02/25/22 12:50 BP 152/95 H 02/25/22 12:50 Pulse Ox 100 02/25/22 12:50 O2 Del Method Room Air 02/25/22 12:50 Allergies Allergy/AdvReac Type Severity Reaction Status Date / Time No Known Allergies Allergy Verified 02/25/22 09:07 Home Medications Medication Instructions Recorded Confirmed Type levofloxacin 500 mg tablet 500 mg PO DAILY 3 days #3 tabs 02/21/22 Rx Laboratory Tests 02/25/22 02/25/22 02/25/22 09:15 09:15 11:00 WBC 12.9 K/mm3 H K/mm3 (4.5-10.0) RBC 4.31 M/mm3 M/mm3 (4.2-5.4) Hgb 13.0 g/dL g/dL (12.0-15.0) Hct 39.7 % % (37.0-47.0) MCV 92.1 fl fl (80-100) MCH 30.2 pg pg (26-34) MCHC 32.7 g/dl g/dl (32-36) RDW 12.5 % % (11.5-14.5) Plt Count 284 k/mm3 k/mm3 (150-375) MPV 10.0 fl fl (7.4-10.4) Immature Gran % (Auto) 0.4 % % (0-0.5) Neut % (Auto) 82.0 % H % (45.5-73.1) Lymph % (Auto) 6.8 % L % (18.3-44.2) [place] % (Auto) 10.3 % H % (2.6-8.5) Eos % (Auto) 0.2 % % (0-4.4) Baso % (Auto) 0.3 % % (0.2-1.2) Lymph # (Auto) 0.88 K/mm3 L K/mm3 (0.9-3.2) [place] # (Auto) 1.3 K/mm3 H K/mm3 (0.1-0.6) Eos # (Auto) 0.0 K/mm3 K/mm3 (0-0.3) Baso # (Auto) 0.0 K/mm3 K/mm3 (0.0-0.1) Abs Immat Gran (auto) 0.05 K/mm3 H K/mm3 (0.00-0.031) Absolute Neuts (auto) 10.6 K/mm3 H K/mm3 (1.3-6.7) Absolute Nucleated RBC 0.0 K/mm3 K/mm3 (0.0-0.012) Nucleated RBC % 0.0 % % (0.0-0.2) Sodium 140 mmol/L mmol/L (137-145) Potassium 3.5 mmol/L mmol/L (3.4-5.0) Chloride 105 mmol/L mmol/L (98-107) Carbon Dioxide 24 mmol/L mmol/L (22-30) Anion Gap 11 mmol/L mmol/L (8-16) BUN 15 mg/dL mg/dL (7-17) Creatinine 0.70 mg/dL mg/dL (0.7-1.0) Estim Creat Clear Calc Not Reportable Estimated GFR > 60 (59 - ) Glucose 111 mg/dL H mg/dL (65-110) Calcium 9.0 mg/dL mg/dL (8.4-10.2) Total Bilirubin 0.8 mg/dL mg/dL (0.2-1.3) AST 22 U/L U/L (14-36) ALT 30 U/L U/L (6-35) Alkaline Phosphatase 56 U/L U/L (38-126) Total Protein 7.0 g/dL g/dL (6.3-8.2) Albumin 4.1 g/dL g/dL (3.5-5.1) Urine Color Yellow (Yellow) Urine Appearance Clear (Clear) Urine pH 7.0 (5.0-9.0) Ur Specific Richards 1.015 (1.001-1.035) Urine Protein Negative mg/dL mg/dL (Negative) Urine Glucose (UA) Negative mg/dL mg/dL (Negative) Urine Ketones Negative mg/dL mg/dL (Negative) Ur Blood (Man) 3+ H (Negative) Urine Nitrate Negative (Negative) Urine Bilirubin Negative (Negative) Urine Urobilinogen 0.2 mg/dL mg/dL (<2.0) Leukocyte Esterase Rfl 1+ RHEA/UL H RHEA/UL (Negative) Urine RBC 6-10 /hpf H /hpf (0-2) Urine WBC 7-9 /hpf H /hpf Ur Squamous Epith Cells Moderate /hpf H /hpf (Few) Urine Bacteria Trace /hpf /hpf Urine Mucus Rare /lpf /lpf Patient hx anesthesia problems: none Family hx anesthesia problems: none Results Review: All pre-operative results and documents have been reviewed as part of the pre-operative evaluation. PMFSH Past Medical History Medical H
[2022-02-25] MEDS: LACTATED RINGERS 1,000 ML 30 ML IV CONT (14:00)
--- NOTE | 2022-02-25 14:09 | WPDHPUPDATE1 ---
History and Physical Update Update Date/Time: 02/25/22 14:09 History and Physical has been reviewed, including an updated exam of the patient. There are NO changes in the patient's condition. Risks, benefits, and alternatives have been discussed and questions answered. Patient agrees to proceed with procedure.
--- NOTE | 2022-02-25 14:12 | SUR.PREOP ---
Resting without needs or complaints.
[2022-02-25] MEDS: ceFAZolin 2 GM/D5W 50 ML 2 GM/50 ML BAG IVPB (14:35)
[2022-02-25] MEDS: LIDOCAINE HCL 2% GEL UROJET 10 ML PKG MUCOUS MEM (14:53)
--- NOTE | 2022-02-25 15:15 | P.OP_ITS ---
Procedure Note - Detailed Date of Procedure 02/25/22 Pre-op Diagnosis flank pain Right ureteral calculus Post-op Diagnosis Same Procedure Performed Cystoscopy, right retrograde pyelogram, right ureteroscopy with holmium laser, stone extraction, right stent exchange Surgeon Ken Ortega MD Anesthesia General Description of Procedure Patient was taken to the operative suite correctly identified. Once anesthesia was obtained she was placed in dorsal lithotomy position and prepped draped usual sterile fashion. Twenty-two Ukrainian scope was inserted the bladder. The stent was grasped brought out the meatus. Wire was inserted into the stent. A rigid ureteral scope was then placed. Stone was visualized in the distal ureter. Was too large to retrieved in 1 piece. Using a 273 micron fiber and lasered the stone multiple small pieces. The largest pieces were sent for analysis. Reinspection revealed no residual ureteral calculi. I had hoped to do flexible ureteroscopy to take care of the stone the kidney however was noted that the patient has a very tortuous proximal ureter with sorted J hooking. I could not manipulate the flexible scope past this area to get into the kidney. As such we simply did the pyelogram and placed a 4.8 Ukrainian contour stent with the proximal end actually coiled in the renal pelvis and the distal in the bladder. 2% viscous lidocaine was inserted urethra patient is taken recovery stable condition. She will follow up next week for stent removal. Will need to make decision whether to do lithotripsy of the renal stone or wait for it to become symptomatic. Due to insurance purposes she will need to be taken care of at the [place] facility Drains Yes Packing No Pathology Yes Complications No immediate complications Condition Stable Disposition PACU
[2022-02-25] MEDS: fentaNYL CITRATE INJ (*CRX) 100 MCG/2 ML VIAL 25 MCG IV PUSH ×2 (15:47→16:14)
--- NOTE | 2022-02-25 15:57 | SUR.PHASEI ---
[id number]-SPOKE WITH ANESTHESIA ABOUT PT BP 149/102 IN PACU. WAS INSTRUCTED TO CONTINUE TO MONITOR, TREAT PAIN NEEDED, AND REQUEST THAT PT FOLLOW UP WITH PRIMARY MD. PT CAN MOVE TO OUT PT RECOVERY WHEN READY.
--- NOTE | 2022-02-25 16:15 | SUR.PHASEI ---
1615- USED [facility] [id number]. SPOKE WITH PT ABOUT PAIN AND PROCEDURE. ALL QUESTION ANSWERED. ALSO SPOKE WITH PT ABOUT BRUISING ON LEFT ARM AND BACK. SHE STATED THAT THE LEFT ARM WAS FROM FAILED IV ATTEMPTED. SHE STATED THE BRUSIE ON HER BACK WAS A THI.
--- NOTE | 2022-02-25 18:02 | SUR.PHASEII ---
[id number] craig; no prescriptions to be sent home with patient
== END 2022-02-25 17:50 | disposition home or self-care (01) ==
LOC: ANHED 09:56 → ANHSURGERY 10:35
PROVIDERS: Physician Assistant; Emergency Provider Emergency Medicine; PCP Emergency Medicine; Visit Provider Urology
PROC: (CPT 52352; principal; 2022-02-25 15:30)
DX: N20.2 Calculus of kidney with calculus of ureter (principal)
CPT/HCPCS: 52356; 36415; 74018; 74420; 80053; 81001; 81025; 82365; 85025; 87086; 88300; 96374; 96375; 99285; A9270; C1769; C2617; J0690; J1100; J2250; J2270; J2405; J2704; J3010; J7030; J7120

== ENCOUNTER 2022-03-26 01:04 | Observation (INO) | payer BC, SELFPAY ==
[2022-03-26] VITALS (42 sets, daily range): BP systolic 106–159; BP diastolic 70–118; PULSE 71–94; RESP 12–25; TEMP 35.7–37.6; O2SAT 95–100; BMI 25.4
--- NOTE | ~2022-03-26 | XR_ITS ---
EXAMINATION: XR retrograde pyelo w/stent RT INDICATION: Stones in the right ureter and right kidney TECHNIQUE: Five intraoperative fluoroscopic images are submitted for review. Total fluoroscopic time was 24.9 seconds COMPARISON: 02/25/2022 FINDINGS: Fluoroscopic images demonstrate moderate right hydronephrosis with multiple stones seen in the mid ureter. A right internal ureteral stent is placed in expected position. IMPRESSION: 1. Right-sided urolithiasis and moderate hydronephrosis with right internal ureteral stent in expecte d position. Please refer to procedure note for full details. Reviewed, dictated and finalized at location F. ION ATTENDANT IMPRESSION: 1. Right-sided urolithiasis and moderate hydronephrosis with right internal ure teral stent in expected position. Please refer to procedure note for full detai ls.
--- NOTE | ~2022-03-26 | CT_ITS ---
EXAMINATION: CT abdomen pelvis wo con DATE: 03/26/2022 03:00 INDICATION: Right flank pain. TECHNIQUE: Computed tomography (CT) of the abdomen and pelvis was performed without intravenous contr ast. Automated exposure control and iterative reconstruction technique were employed. The dose-length product was 190.28 mGy-cm. COMPARISON: CT abdomen and pelvis 02/21/2022 FINDINGS: The visualized portions of the lung bases demonstrate mild atelectasis. No pleural effusion . The heart size is normal. No pericardial effusion. The liver, gallbladder, spleen, pancreas, and ad renal glands are normal. There are approximately 4 stones in right kidney measuring up to 5 mm. There is mild right hydronephrosis. There is a stone in proximal right ureter measuring approximately 8 mm . There is a 2 mm stone in left kidney. There are no dilated loops of bowel. The appendix is normal. There are no pathologically enlarged lymph nodes. There is no free intraperitoneal fluid. There is mi ld thoracolumbar spondylosis. IMPRESSION: 1. 8 mm stone in proximal right ureter with mild right hydronephrosis. 2. Bilateral nonobstructing kidney stones. Reviewed, dictated and finalized at location A. OWN OPERATOR
--- NOTE | ~2022-03-26 | XR_ITS ---
EXAMINATION: XR abdomen/kub 1V DATE: 03/26/2022 09:32 INDICATION: Right ureteral stone. TECHNIQUE: A supine view of the abdomen on 2 radiographs was obtained. COMPARISON: CT abdomen and pelvis 03/26/2022 FINDINGS: There is a 7 x 10 mm stone in proximal right ureter. There are multiple stones in right kid guilherme measuring up to 5 mm. There are phleboliths in the pelvis. IMPRESSION: 1. Stones in the right kidney and proximal right ureter. Reviewed, dictated and finalized at location A. DE SALES SUPERVISOR
[2022-03-26 01:52] LABS: Basophils Absolute Auto 0.1 K/mm3 (0.0-0.1); Basophils Percent Auto 0.4 % (0.2-1.2); Eosinophils Percent Auto 0.3 % (0-4.4); Hematocrit 31.6 % (37.0-47.0); Hemoglobin 9.9 g/dL (12.0-15.0); Immature Granulocyte Absolute 0.08 K/mm3 (0.00-0.031); Immature Granulocyte Percent A 0.7 % (0-0.5); Lymphocytes Absolute Auto 1.79 K/mm3 (0.9-3.2); Mean Corpuscular HGB Conc 31.3 g/dl (32-36); Mean Corpuscular Hemoglobin 28.4 pg (26-34); Mean Corpuscular Volume 90.5 fl (80-100); Mean Platelet Volume 9.9 fl (7.4-10.4); Monocytes Absolute Auto 0.9 K/mm3 (0.1-0.6); Monocytes Percent Auto 7.4 % (2.6-8.5); Neutrophils Absolute Auto 9.1 K/mm3 (1.3-6.7); Neutrophils Percent Auto 76.2 % (45.5-73.1); Platelet Count Result 300 k/mm3 (150-375); Red Blood Count 3.49 M/mm3 (4.2-5.4); Red Cell Distribution Width 13.1 % (11.5-14.5); White Blood Count 11.9 K/mm3 (4.5-10.0)
--- NOTE | 2022-03-26 02:01 | ED.GENADULT ---
HPI - General Adult General Chief complaint: Back Pain/Injury Stated complaint: left flank pain Time Seen by Provider: 03/26/22 01:33 History of Present Illness HPI narrative: Patient 22-year-old female presents emergency department with chief complaint of right flank pain. Patient states pain began this evening reports that sharp radiating to her right lower quadrant patient states it feels similar to whenever she had a kidney stone approximately 1 month ago patient reports she had a procedure by urology to clear out the obstructing stones and subsequently this feels similar to that episode. Patient reports the pain is not improved by anything reports he is unable to get comfortable in any position. Related Data Allergies Allergy/AdvReac Type Severity Reaction Status Date / Time No Known Allergies Allergy Verified 02/25/22 09:07 Review of Systems Review of Systems: A 10 system review of systems was completed on the patient and is negative except for what is stated in the HPI. Nursing and ancillary documentation was reviewed. PMFSH Past Medical History Medical History Gastritis Hepatitis B Menometrorrhagia Sigmoid polyp Family History Family History Sibling Hepatitis B Father Hypertension Social History Social History Smoking status: Never smoker Alcohol intake: never Substance use: never Substance use type: does not use Spiritual care concerns: No Exam Narrative: GENERAL: Well-appearing, well-nourished, and in mild acute pain distress. HEAD: Normocephalic, atraumatic. EYES: PERRLA and EOMI. ENT: Nares clear, no rhinorrhea or epistaxis. Mucous membranes moist. NECK: Supple. CHEST: Clear to auscultation. No respiratory distress. HEART: Regular rate and rhythm. No murmur heard. Normal peripheral pulses. ABDOMEN: Soft, nontender, nondistended, normal active bowel sounds. EXTREMITIES: Normal range of motion. No edema. SKIN: Warm, dry, no rash. NEURO: No focal deficits. Alert and oriented x3. PSYCH: Normal mood and affect. Course Vital Signs Vital signs: Vital Signs Temperature 36.8 C 03/26/22 01:10 Pulse Rate 86 03/26/22 01:10 Respiratory Rate 20 03/26/22 01:10 Blood Pressure 159/90 H 03/26/22 01:10 Pulse Oximetry 100 03/26/22 01:10 Oxygen Delivery Room Air 03/26/22 01:10 Temperature 36.8 C 03/26/22 01:10 Pulse Rate 74 03/26/22 04:00 Respiratory Rate 18 03/26/22 04:00 Blood Pressure 153/96 H 03/26/22 04:45 Pulse Oximetry 98 03/26/22 05:02 Oxygen Delivery Room Air 03/26/22 01:10 Medical Decision Making Vital Signs Vital Signs: Vital Signs Temperature 36.8 C 03/26/22 01:10 Pulse Rate 86 03/26/22 01:10 Respiratory Rate 20 03/26/22 01:10 Blood Pressure 159/90 H 03/26/22 01:10 Pulse Oximetry 100 03/26/22 01:10 Oxygen Delivery Room Air 03/26/22 01:10 Temperature 36.8 C 03/26/22 01:10 Pulse Rate 74 03/26/22 04:00 Respiratory Rate 18 03/26/22 04:00 Blood Pressure 153/96 H 03/26/22 04:45 Pulse Oximetry 98 03/26/22 05:02 Oxygen Delivery Room Air 03/26/22 01:10 Lab Data Result diagrams: 03/26/22 01:47 03/26/22 01:47 Labs: Lab Results 03/26/22 03/26/22 03/26/22 Range/Units 01:47 01:47 02:34 WBC 11.9 H (4.5-10.0) K/mm3 RBC 3.49 L (4.2-5.4) M/mm3 Hgb 9.9 L D (12.0-15.0) g/dL Hct 31.6 L (37.0-47.0) % MCV 90.5 (80-100) fl MCH 28.4 (26-34) pg MCHC 31.3 L (32-36) g/dl RDW 13.1 (11.5-14.5) % Plt Count 300 (150-375) k/mm3 MPV 9.9 (7.4-10.4) fl Immature Gran % (Auto) 0.7 H (0-0.5) % Neut % (Auto) 76.2 H (45.5-73.1) % Lymph % (Auto) 15.0 L (18.3-44.2) % [place] % (Auto) 7.4 (2.6-8.5) % Eos % (Auto) 0.3 (0-4.4)
[2022-03-26 02:03] LABS: Alanine Aminotransferase 35 U/L (6-35); Albumin Level 4.3 g/dL (3.5-5.1); Alkaline Phosphatase 65 U/L (38-126); Anion Gap 8 mmol/L (8-16); Aspartate Amino Transferase 28 U/L (14-36); Bilirubin,Total 0.3 mg/dL (0.2-1.3); Blood Urea Nitrogen 18 mg/dL (7-17); Calcium 8.4 mg/dL (8.4-10.2); Carbon Dioxide 24 mmol/L (22-30); Chloride 105 mmol/L (98-107); Estimated CRCL calculation 86 ml/min; Estimated Glomerular Filt Rate > 60; Glucose 121 mg/dL (65-110); Lipase 128 U/L (23-300); Potassium 3.6 mmol/L (3.4-5.0); Sodium 137 mmol/L (137-145)
[2022-03-26] MEDS: MORPHINE SULFATE (*CRX) 4 MG/ML INJ IV PUSH (02:11)
[2022-03-26] MEDS: ONDANSETRON INJ 4 MG/2 ML VIAL IV PUSH ×2 (02:12→06:58)
[2022-03-26] MEDS: SODIUM CHLORIDE 0.9% IV 1,000 ML 999 ML IV CONT (02:12)
[2022-03-26 02:39] LABS: Appearance Urine Slightly Cloudy (Clear); Bilirubin Urine Negative (Negative); Blood Urine 3+ (Negative); Glucose Urine UA Negative (Negative); Ketones Urine Negative (Negative); Leukocyte Esterase Ur Negative LEU/UL (Negative); Nitrate Urine Negative (Negative); Protein Urine 1+ mg/dL (Negative); Urobilinogen Urine 0.2 mg/dL (<2.0); pH Urine 8.5 (5.0-9.0)
[2022-03-26 02:40] LABS: Add Urine Microscopic? YES; Color Urine Light Red (Yellow)
[2022-03-26 02:44] LABS: Amorphous Sediment Urine Few; Bacteria Urine 2+ /hpf; RBC Urine >75 /hpf (0-2); Squamous Epithelial Cell Urine Few /hpf (Few); WBC Urine 21-30 /hpf
[2022-03-26] MEDS: HYDROmorphone HCL INJ (*CRX) 1 MG/ML SYR IV PUSH ×2 (05:06→12:24)
--- NOTE | 2022-03-26 06:36 | ADMGEN ---
This patient, Crystal Godoy, was admitted to [facility] Surg Room 329-01. Patient/family oriented to hospital policies and general routines including ID bracelet, bed and alarms, visiting hours, pain management, procedures, bathroom and other care routines, personal items, smoking policy, room service/diet, and visiting hours. Information on how to activate the Rapid Response Team has been discussed. Patient/Family are encouraged to report perceived risks to care and to ask questions if they do not understand what they are told or what they should do.
[2022-03-26] MEDS: SODIUM CHLORIDE 0.9% IV 1,000 ML 125 ML IV CONT ×2 (06:49→15:10)
--- NOTE | 2022-03-26 12:07 | WPDANESEPPF ---
Anes - Initial Pre Proc Eval Procedure: Operation Date: 03/26/22 16:00 Proposed Procedures p Cystoscopy, Right Retrograde Pyelogram,Right Stent Placement(Right) - Mitchell Seay MD Date/Time: 03/26/22 12:07 Surgeon: Mitchell Seay MD Pre Op Diagnosis: obstructing kidney stone Patient Data Age: 42 Gender: F Height: 1.57 m Weight: 63.2 kg Last Vital Signs Temp 35.7 C L 03/26/22 06:31 Pulse 80 03/26/22 06:31 Resp 20 03/26/22 06:31 BP 142/96 H 03/26/22 06:31 Pulse Ox 98 03/26/22 06:31 O2 Del Method Room Air 03/26/22 01:10 Allergies Allergy/AdvReac Type Severity Reaction Status Date / Time No Known Allergies Allergy Verified 02/25/22 09:07 Home Medications Medication Instructions Recorded Confirmed Type levofloxacin 500 mg tablet 500 mg PO DAILY 3 days #3 tabs 02/21/22 03/26/22 Rx Laboratory Tests 03/26/22 03/26/22 03/26/22 01:47 01:47 02:34 WBC 11.9 K/mm3 H K/mm3 (4.5-10.0) RBC 3.49 M/mm3 L M/mm3 (4.2-5.4) Hgb 9.9 g/dL L D g/dL (12.0-15.0) Hct 31.6 % L % (37.0-47.0) MCV 90.5 fl fl (80-100) MCH 28.4 pg pg (26-34) MCHC 31.3 g/dl L g/dl (32-36) RDW 13.1 % % (11.5-14.5) Plt Count 300 k/mm3 k/mm3 (150-375) MPV 9.9 fl fl (7.4-10.4) Immature Gran % (Auto) 0.7 % H % (0-0.5) Neut % (Auto) 76.2 % H % (45.5-73.1) Lymph % (Auto) 15.0 % L % (18.3-44.2) [place] % (Auto) 7.4 % % (2.6-8.5) Eos % (Auto) 0.3 % % (0-4.4) Baso % (Auto) 0.4 % % (0.2-1.2) Lymph # (Auto) 1.79 K/mm3 K/mm3 (0.9-3.2) [place] # (Auto) 0.9 K/mm3 H K/mm3 (0.1-0.6) Eos # (Auto) 0.0 K/mm3 K/mm3 (0-0.3) Baso # (Auto) 0.1 K/mm3 K/mm3 (0.0-0.1) Abs Immat Gran (auto) 0.08 K/mm3 H K/mm3 (0.00-0.031) Absolute Neuts (auto) 9.1 K/mm3 H K/mm3 (1.3-6.7) Absolute Nucleated RBC 0.0 K/mm3 K/mm3 (0.0-0.012) Nucleated RBC % 0.0 % % (0.0-0.2) Sodium 137 mmol/L mmol/L (137-145) Potassium 3.6 mmol/L mmol/L (3.4-5.0) Chloride 105 mmol/L mmol/L (98-107) Carbon Dioxide 24 mmol/L mmol/L (22-30) Anion Gap 8 mmol/L mmol/L (8-16) BUN 18 mg/dL H mg/dL (7-17) Creatinine 0.60 mg/dL L mg/dL (0.7-1.0) Estim Creat Clear Calc 86 ml/min ml/min Estimated GFR > 60 (59 - ) Glucose 121 mg/dL H mg/dL (65-110) Calcium 8.4 mg/dL mg/dL (8.4-10.2) Total Bilirubin 0.3 mg/dL mg/dL (0.2-1.3) AST 28 U/L U/L (14-36) ALT 35 U/L U/L (6-35) Alkaline Phosphatase 65 U/L U/L (38-126) Total Protein 7.0 g/dL g/dL (6.3-8.2) Albumin 4.3 g/dL g/dL (3.5-5.1) Lipase 128 U/L U/L (23-300) Urine Color Light red H (Yellow) Urine Appearance Slightly cloudy (Clear) Urine pH 8.5 (5.0-9.0) Ur Specific [place] 1.020 (1.001-1.035) Urine Protein 1+ mg/dL H mg/dL (Negative) Urine Glucose (UA) Negative mg/dL mg/dL (Negative) Urine Ketones Negative mg/dL mg/dL (Negative) Ur Blood (Man) 3+ H (Negative) Urine Nitrate Negative (Negative) Urine Bilirubin Negative (Negative) Urine Urobilinogen 0.2 mg/dL mg/dL (<2.0) Leukocyte Esterase Rfl Negative HREA/UL RHEA/UL (Negative) Urine RBC >75 /hpf H /hpf (0-2) Urine WBC 21-30 /hpf H /hpf Ur Squamous Epith Cells Few /hpf /hpf (Few) Amorphous Sediment Few H (None) Urine Bacteria 2+ /hpf H /hpf Results Review: All pre-operative results and documents have been reviewed as part of the pre-operative evaluation. [facility] Past Medical History Medical History
--- NOTE | 2022-03-26 14:00 | WPDURCON ---
Assessment and Plan Assessment and plan (1) Ureterolithiasis: Code(s): N20.1 - Calculus of ureter Status: Acute Assessment and Plan: Bilateral stones seen on CT. Only right stones seen on KUB. Will plan to place a right ureteral stent today and then plan for ESWL in one to two weeks when cultures are clear. (2) Hydronephrosis, right: Code(s): N13.30 - Unspecified hydronephrosis Status: Acute (3) Right ureteral calculus: Code(s): N20.1 - Calculus of ureter Status: Acute Assessment and Plan: Obtain Consent: Cystoscopy, right ureteroscopy with stent placement, right retrograde pyelogram. Keep NPO. Plan to go to the OR today with Dr. Seay. Urology Consult Note HPI Date Seen: 03/26/22 Time Seen: 13:00 Requesting Physician: Mitchell Seay MD Primary Care Provider: Balwinder Wylie MD Consult Narrative Reason for consult: Right Ureteral Stone/UTI Narrative: Crystal Godoy is a 42 year old female who is well known to our practice for kidney and ureteral stones as well as recent hospitalization with stent placement and ureteroscopy. She had a Cystoscopy, right retrograde pyelogram, right ureteral stent placement on 02/20/[address] Ortega here at [facility] for a right ureteral stone d/t what was thought a UTI, however her culture from 02/20/22 was negative. She then returned to the ER on 02/25/22 with severe pain and a Cystoscopy, right retrograde pyelogram, right ureteroscopy with holmium laser, stone extraction, right stent exchange was done by Dr. Ortega. Her repeat urine culture on 02/25/22 was also negative. She then had her stent removed on 03/05/[address] Ortega in the office. Her plan was to f/u in one month with a KUB and EZEKIEL, however she didn't make it that long and unfortunately came to the ER early this morning with acute onset of right flank pain that radiates to the right lower quadrant. The pain is accompanied by nausea and vomiting. She was scanned and found to have an 8mm right proximal ureteral stone with hydronephrosis present and non obstructive bilateral stones. She is afebrile, UA is suggestive of a UTI, although cultures are pending. Her WBC is 11.9 and creatinine is 0.60. She is not tolerating pain medications at home well at this time. KUB shows the right proximal stone and other right renal stones, it doesn't visualize the left sided stones. She denies dysuria, hematuria, frequency or urgency to urinate. Review of Systems Constitutional: Constitutional: Reports fatigue Cardiovascular: Cardiovascular: Denies chest pain Respiratory: Respiratory: Reports no additional respiratory complaints Gastrointestinal: Gastrointestinal: Reports abdominal pain, Reports nausea and Reports vomiting Genitourinary: Genitourinary: Denies hematuria, Denies dysuria, Denies pelvic pain, Reports flank pain, Denies urinary hesitancy and Denies urinary urgency [facility] Past Medical History Medical History Gastritis Hepatitis B Hydronephrosis, right Menometrorrhagia Right ureteral calculus Sigmoid polyp Ureterolithiasis Family History Family History Sibling Hepatitis B Father Hypertension Social History Social History Smoking status: Never smoker Alcohol intake: never Substance use: never Substance use type: does not use Lack of Transportation: No Lack of Food: Never True Current Housing: I Have Housing Concerned About Future Housing: No Difficulty Paying Gas/Electric Bills: No Difficulty Paying for Meds: No Currently Unemployed: No Education: Grade School Difficulty w/ Childcare or Family Care: No Spiritual care concerns: No Meds Home Medications and Allergies Home Medications Medication Instructions Recorded Confirmed Type levofloxacin 500 mg tablet
--- NOTE | 2022-03-26 16:31 | WPDHPUPDATE1 ---
History and Physical Update Update Date/Time: 03/26/22 16:31 History and Physical has been reviewed, including an updated exam of the patient. There are NO changes in the patient's condition. Risks, benefits, and alternatives have been discussed and questions answered. Patient agrees to proceed with procedure.
[2022-03-26] MEDS: LACTATED RINGERS 1,000 ML 30 ML IV CONT (19:00)
--- NOTE | 2022-03-26 19:42 | WPDANESEPPF ---
Anes - Initial Pre Proc Eval Procedure: Operation Date: 03/26/22 16:00 Proposed Procedures p Cystoscopy, Right Retrograde Pyelogram,Right Stent Placement(Right) - Mitchell Seay MD Date/Time: 03/26/22 19:42 Surgeon: Mitchell Seay MD Pre Op Diagnosis: obstructing kidney stone Patient Data Age: 42 Gender: F Height: 1.57 m Weight: 63.2 kg Last Vital Signs Temp 37.6 C 03/26/22 19:00 Pulse 78 03/26/22 19:00 Resp 12 03/26/22 19:00 BP 150/81 H 03/26/22 19:00 Pulse Ox 97 03/26/22 19:00 O2 Del Method Room Air 03/26/22 19:00 Allergies Allergy/AdvReac Type Severity Reaction Status Date / Time No Known Allergies Allergy Verified 02/25/22 09:07 Home Medications Medication Instructions Recorded Confirmed Type levofloxacin 500 mg tablet 500 mg PO DAILY 3 days #3 tabs 02/21/22 03/26/22 Rx Laboratory Tests 03/26/22 03/26/22 03/26/22 01:47 01:47 02:34 WBC 11.9 K/mm3 H K/mm3 (4.5-10.0) RBC 3.49 M/mm3 L M/mm3 (4.2-5.4) Hgb 9.9 g/dL L D g/dL (12.0-15.0) Hct 31.6 % L % (37.0-47.0) MCV 90.5 fl fl (80-100) MCH 28.4 pg pg (26-34) MCHC 31.3 g/dl L g/dl (32-36) RDW 13.1 % % (11.5-14.5) Plt Count 300 k/mm3 k/mm3 (150-375) MPV 9.9 fl fl (7.4-10.4) Immature Gran % (Auto) 0.7 % H % (0-0.5) Neut % (Auto) 76.2 % H % (45.5-73.1) Lymph % (Auto) 15.0 % L % (18.3-44.2) [place] % (Auto) 7.4 % % (2.6-8.5) Eos % (Auto) 0.3 % % (0-4.4) Baso % (Auto) 0.4 % % (0.2-1.2) Lymph # (Auto) 1.79 K/mm3 K/mm3 (0.9-3.2) [place] # (Auto) 0.9 K/mm3 H K/mm3 (0.1-0.6) Eos # (Auto) 0.0 K/mm3 K/mm3 (0-0.3) Baso # (Auto) 0.1 K/mm3 K/mm3 (0.0-0.1) Abs Immat Gran (auto) 0.08 K/mm3 H K/mm3 (0.00-0.031) Absolute Neuts (auto) 9.1 K/mm3 H K/mm3 (1.3-6.7) Absolute Nucleated RBC 0.0 K/mm3 K/mm3 (0.0-0.012) Nucleated RBC % 0.0 % % (0.0-0.2) Sodium 137 mmol/L mmol/L (137-145) Potassium 3.6 mmol/L mmol/L (3.4-5.0) Chloride 105 mmol/L mmol/L (98-107) Carbon Dioxide 24 mmol/L mmol/L (22-30) Anion Gap 8 mmol/L mmol/L (8-16) BUN 18 mg/dL H mg/dL (7-17) Creatinine 0.60 mg/dL L mg/dL (0.7-1.0) Estim Creat Clear Calc 86 ml/min ml/min Estimated GFR > 60 (59 - ) Glucose 121 mg/dL H mg/dL (65-110) Calcium 8.4 mg/dL mg/dL (8.4-10.2) Total Bilirubin 0.3 mg/dL mg/dL (0.2-1.3) AST 28 U/L U/L (14-36) ALT 35 U/L U/L (6-35) Alkaline Phosphatase 65 U/L U/L (38-126) Total Protein 7.0 g/dL g/dL (6.3-8.2) Albumin 4.3 g/dL g/dL (3.5-5.1) Lipase 128 U/L U/L (23-300) Urine Color Light red H (Yellow) Urine Appearance Slightly cloudy (Clear) Urine pH 8.5 (5.0-9.0) Ur Specific [place] 1.020 (1.001-1.035) Urine Protein 1+ mg/dL H mg/dL (Negative) Urine Glucose (UA) Negative mg/dL mg/dL (Negative) Urine Ketones Negative mg/dL mg/dL (Negative) Ur Blood (Man) 3+ H (Negative) Urine Nitrate Negative (Negative) Urine Bilirubin Negative (Negative) Urine Urobilinogen 0.2 mg/dL mg/dL (<2.0) Leukocyte Esterase Rfl Negative RHEA/UL RHEA/UL (Negative) Urine RBC >75 /hpf H /hpf (0-2) Urine WBC 21-30 /hpf H /hpf Ur Squamous Epith Cells Few /hpf /hpf (Few) Amorphous Sediment Few H (None) Urine Bacteria 2+ /hpf H /hpf Patient hx anesthesia problems: none Family hx anesthesia problems: none Results Review: All pre-operative results and documents have been reviewed as part of the p
--- NOTE | 2022-03-26 20:17 | SUR.PREOP ---
assisted to remove bra and panties new mesh panties and pad placed. update about delay given understanding stated, warm blanket applied
[2022-03-26] MEDS: LIDOCAINE HCL 2% GEL UROJET 10 ML PKG MUCOUS MEM (20:52)
--- NOTE | 2022-03-26 20:57 | W.PM.PROC2 ---
Procedure Note - Detailed Date of Procedure 03/26/22 Pre-op Diagnosis obstructing right ureteral stone Post-op Diagnosis Same Procedure Performed Cystoscopy, right retrograde pyelogram, right ureteral stent insertion, interpretation of fluoroscopic images Surgeon Mitchell Seay MD Anesthesia General Findings 10mm right proximal ureteral stone Description of Procedure Informed consent was obtained. Patient taken the operating. She was given preoperative IV antibiotics on the floor. She was induced anesthesia. She was prepped and draped in normal sterile fashion. We inserted a 22 F rigid cystoscope through urethra into the bladder. There were no mucosal abnormalities noted. The patient had bilateral orthotopic ureteral orifices. Plain film x-ray showed the large stone in the proximal ureter. We cannulated the right ureteral orifice, retrograde pyelogram was performed. A retrograde pyelogram revealed inability initially for contrast to transverse beyond the level of the stone we then were able to manipulate a wire beyond the level of the stone and then retrograde pyelogram was again performed and identified a moderate hydronephrosis with filling defect in the renal pelvis as the stone was pushed proximally with the wire. Over the wire a 4.8 F variable length stent was placed with a curl in the renal pelvis and a curl in the bladder. Bladder was emptied lidocaine was instilled the patient was awakened and taken to PACU in stable condition Complications No immediate complications Condition Stable Disposition PACU
[2022-03-27 00:39] VITALS: BP 128/83; PULSE 67; RESP 14; TEMP 36.2; O2SAT 98
[2022-03-27] MEDS: SODIUM CHLORIDE 0.9% IV 1,000 ML 125 ML IV CONT (03:30)
[2022-03-27 06:00] VITALS: BP 118/79; PULSE 76; RESP 14; TEMP 36.3; O2SAT 99
--- NOTE | 2022-03-27 08:07 | WPDANESPN ---
Anes - Prog Note Post-Op Date/Time: 03/27/22 08:07 Vital Signs: Last Vital Signs Temp 36.3 C L 03/27/22 06:00 Pulse 76 03/27/22 06:00 Resp 14 03/27/22 06:00 BP 118/79 03/27/22 06:00 Pulse Ox 99 03/27/22 06:00 O2 Del Method Room Air 03/27/22 00:05 O2 Flow Rate 10 03/26/22 21:16 Pain Score (VAS): 0 I/O: Intake & Output 03/26/22 03/27/22 03/27/22 23:59 07:59 15:59 Intake Total 1100 50 Balance 1100 50 Laboratory Tests 03/26/22 01:47 03/26/22 01:47 Patient Feedback: Patient satisfied with anesthetic care.
[2022-03-27 14:00] VITALS: BP 142/93; PULSE 83; RESP 18; TEMP 36.4; O2SAT 97
--- NOTE | 2022-03-27 15:58 | WPDUROPN2 ---
Progress Note: A&P Assessment and Plan (1) Ureterolithiasis: Code(s): N20.1 - Calculus of ureter Status: Acute Assessment and Plan: Bilaterally, right visible on KUB. [facility] We will have to follow the left renal stones annually with imaging. (2) Hydronephrosis, right: Code(s): N13.30 - Unspecified hydronephrosis Status: Acute (3) Right ureteral calculus: Code(s): N20.1 - Calculus of ureter Status: Acute Assessment and Plan: Stent is in place, will repeat a KUB the day of her ESWL. Will discharge home with pain medications. (4) UTI (urinary tract infection): Code(s): N39.0 - Urinary tract infection, site not specified Status: Acute Assessment and Plan: Urine culture is pending, will continue IV ceftriaxone until culture results are back. I plan to discharge home tomorrow when culture results are back if hospitalist clears her for discharge after evaluation of her hands and face. (5) Facial edema: Code(s): R60.0 - Localized edema Status: Acute Assessment and Plan: This began several days ago, she is concerned it is related to her kidney stone however, I ensured here that there is no correlation. She hasn't started any new medications at home prior to arrival to the hospital and hasn't had any injuries to report. I have consulted the hospitalist to further evaluate. (6) Hand edema: Code(s): R60.0 - Localized edema Status: Acute Subjective Subjective Date/Time Seen: 03/27/22 15:58 Cystoscopy, right retrograde pyelogram, right ureteral stent insertion, interpretation of fluoroscopic images She is tolerating diet, activity and pain well. Post Op day: 1 Review of Systems Respiratory: Respiratory: Reports no additional respiratory complaints Gastrointestinal: Gastrointestinal: Denies abdominal pain, Denies nausea and Denies vomiting Genitourinary: Genitourinary: Denies hematuria, Denies dysuria, Denies pelvic pain, Denies flank pain, Denies urinary incontinence and Denies urinary urgency Exam Const: General: comfortable Resp: Effort & Inspection: normal respiratory effort Cardio: Rate: regular rate GI: GI Palp: Yes Soft to palpation and No Tenderness to palpation present (GI) : General: Yes CVA tenderness on the right Extrem: Right lower extremity: no edema Left lower extremity: no edema Objective Data Vital Signs Vital Signs: Vital Signs - 24 hr 03/26/22 19:00 03/26/22 21:01 03/26/22 21:16 Temperature 99.6 F 97.6 F Pulse Rate 78 79 77 Respiratory Rate 12 14 13 Blood Pressure 150/81 H 106/70 121/93 H Pulse Oximetry 97 100 100 Oxygen Delivery Room Air Simple Face Mask Simple Face Mask Oxygen Flow Rate 10 10 03/26/22 21:30 03/26/22 21:45 03/26/22 22:30 Temperature 97.3 F L Pulse Rate 82 80 73 Respiratory Rate 20 14 16 Blood Pressure 146/97 H 148/95 H 135/92 H Pulse Oximetry 100 98 96 Oxygen Delivery Room Air Room Air Oxygen Flow Rate 03/26/22 22:58 03/26/22 23:28 03/27/22 00:39 Temperature 98.1 F 97.4 F L 97.1 F L Pulse Rate 71 71 67 Respiratory Rate 16 16 14 Blood Pressure 135/92 H 133/93 H 128/83 Pulse Oximetry 98 97 98 Oxygen Delivery Oxygen Flow Rate 03/27/22 00:05 03/27/22 06:00 03/27/22 14:00 Temperature 97.3 F L 97.6 F Pulse Rate 76 83 Respiratory Rate 14 18 Blood Pressure 118/79 142/93 H Pulse Oximetry 99 97 Oxygen Delivery Room Air Oxygen Flow Rate Intake/Output Intake/Output: Intake & Output 03/24/22 03/25/22 03/26/22 03/27/22 23:59 23:59 23:59 23:59 Intake Total 3150 764 Balance 3150 764 Meds/Results Medications: Active Medications Generic Name Dose Route Start Last Admin Trade Name Freq PRN Reason Stop Dose Admin Hydromorphone HCl 1 mg 03/26/22 05:12 03/26/22 12:24 Hydromorphone Hcl Inj (*Crx) 1 Mg/Ml Syr IV PUSH 1 mg Q4H PRN Administratio
--- NOTE | 2022-03-27 18:19 | PM.IMCN ---
Assessment and Plan Assessment and plan (1) Facial edema: Code(s): R60.0 - Localized edema Status: Acute (2) Ureterolithiasis: Code(s): N20.1 - Calculus of ureter Status: Acute (3) Hepatitis B: Code(s): B19.10 - Unspecified viral hepatitis B without hepatic coma Status: Acute Plan # intermittent generalized edema: Unclear etiology. this is been chronic problem over the past 6 7 months. She has been treated with some medications for chronic urticaria for year and a half wonder this is steroid. This could cause or lead to swelling problem. I do not see underlying renal failure as the etiology. Her albumin is normal with normal LFTs. She does have history of hepatitis B carrier will check hepatitis panel for any reactivation possibility. Will also check underlying iron deficiency as she seems to be anemic this time. She was not anemic last month on her lab work. Ruling out underlying inflammatory disease with PAO would be beneficial as well. Will check ESR and CRP and will also check uric acid level. will also need to rule out underlying thyroid illness and hence will check TSH. She is not overtly swollen and my evaluation currently will re-evaluate again in morning. May use some diuretic if edema more pronounced than currently however will hold off for now and she seems to be on IV fluid right now which is what I will discontinue at this time. However also advised her to follow-up with PCP which she does not currently have to continue workup on this. Thanks for the consultation. Will recheck labs in a.m. particularly her CBC. Further recommendation pending the results. Some of these test results may not come back and I do not think she needs to stay here for any further workup to be back and i have encouraged her to follow-up with PCP for ongoing evaluation and management HPI Data of Consult Consult date: 03/27/22 Requesting Physician: Mitchell Seay MD Primary Care Provider: Balwinder Wylie MD Consult Narrative Narrative: Crystal Godoy is a 42 year old female who presented to the [facility] with right flank pain and was found to have right hydronephrosis with right ureteral stone. She underwent cystoscopy with right retrograde pyelogram and right ureteral stent insertion. She has also been started with IV antibiotics for UTI. She has been feeling better on her abdominal pain since then. she does have left-sided renal stones which is going to be followed up and also needs right ESWL which is planned to be done on Thursday at [facility]. She has reported facial swelling as well as and swelling and leg swelling to the primary team. And hence we were consulted for this. She states that she has been having on and off swelling since past 6 7 months. Comes and goes. When it swells she feels tight however she does not have any joint pain per se. She denies any fever or chills. She has a history of hepatitis B infection but does not have any active infection. She saw GI for this . She she reports that most of her family member has hepatitis-B carrier. She has been getting IV fluids since the admission here. She also reports history of chronic urticaria for which she was on some medication that she took for urine half. She states she has been having this swelling problem since then. She has not really followed up with anyone with regard to the swelling problem as she does not know who to see and where to go. History was taken with the help of clinical cytogenetics director Review of Systems Review of Systems: - CONSTITUTIONAL: Denies weight loss, fever and chills. - HEENT: Denies changes in vision and hearing - RESPIRATORY: Denies SOB and cough. - CV: Denies palpitations and CP. - GI: Denies abdominal pain, nausea, vomiting and diarrhea. - : Denies dysuria and urinary frequency. - MSK: Denies myalgia and joint pain. - SKIN: Denies rash and pruritus. - NEUROLOGICAL: Denies headache an
[2022-03-27 19:41] LABS: Cholesterol 186 mg/dL (0-200); HDL Direct 67 mg/dL; Triglycerides 78 mg/dL (<150)
[2022-03-27 19:42] LABS: Creatine Kinase 24 U/L (30-135); Uric Acid 3.5 mg/dL (2.5-7.5)
[2022-03-27 19:45] LABS: CRP 2.6 mg/dL (<1.0)
[2022-03-27 19:50] LABS: Rheumatoid Factor < 8.6 IU/ML (<12)
[2022-03-27 19:52] LABS: LDL Cholesterol Direct 82 mg/dL
[2022-03-27 20:05] LABS: Hemoglobin A1C 5.2 % (<5.7); Iron 22 ug/dL (37-170)
[2022-03-27 20:16] LABS: Percent Iron Saturation 6 % (20-50)
[2022-03-27 20:24] LABS: Vitamin D 25 Hydroxy 19.7 ng/mL
[2022-03-27 20:27] LABS: Erythrocyte Sedimentation Rate 23 mm/hr (0-20)
[2022-03-27 20:42] LABS: Hepatitis B Surface Antigen Positive (Negative)
[2022-03-27 20:49] LABS: Folic Acid 8.4 ng/mL (2.76->20)
[2022-03-27 20:56] LABS: Hepatitis C Virus Antibody Negative (Negative)
[2022-03-27 20:57] LABS: Prothrombin Time 12.6 Seconds (11.1-14.7)
[2022-03-27 20:58] LABS: Partial Thromboplastin Time 29.6 SECONDS (22.3-36.8)
[2022-03-27 21:04] LABS: Lactate Dehydrogenase 219 U/L (120-246)
[2022-03-27 21:59] LABS: Hepatitis B Core IgM Result Negative (Negative)
[2022-03-27 22:03] LABS: Thyroid Stimulating Hormone Reflex 0.539 uIU/mL (0.465-4.68)
[2022-03-27 22:10] LABS: HAV RESULT Negative (Negative)
[2022-03-27 22:19] VITALS: BP 138/96; PULSE 89; RESP 16; TEMP 36.5; O2SAT 100
[2022-03-28 05:59] VITALS: BP 129/90; PULSE 91; RESP 16; TEMP 36.9; O2SAT 100
[2022-03-28 07:35] LABS: Basophils Percent Auto 0.2 % (0.2-1.2); Eosinophils Percent Auto 0.2 % (0-4.4); Hematocrit 27.3 % (37.0-47.0); Hemoglobin 8.7 g/dL (12.0-15.0); Immature Granulocyte Absolute 0.06 K/mm3 (0.00-0.031); Immature Granulocyte Percent A 0.7 % (0-0.5); Lymphocytes Absolute Auto 1.15 K/mm3 (0.9-3.2); Lymphocytes Percent Auto 12.8 % (18.3-44.2); Mean Corpuscular HGB Conc 31.9 g/dl (32-36); Mean Corpuscular Hemoglobin 27.9 pg (26-34); Mean Corpuscular Volume 87.5 fl (80-100); Monocytes Absolute Auto 0.7 K/mm3 (0.1-0.6); Monocytes Percent Auto 7.9 % (2.6-8.5); Neutrophils Percent Auto 78.2 % (45.5-73.1); Platelet Count Result 297 k/mm3 (150-375); Red Blood Count 3.12 M/mm3 (4.2-5.4); Red Cell Distribution Width 13.1 % (11.5-14.5)
[2022-03-28 07:59] LABS: Alanine Aminotransferase 35 U/L (6-35); Albumin Level 3.4 g/dL (3.5-5.1); Alkaline Phosphatase 37 U/L (38-126); Anion Gap 10 mmol/L (8-16); Aspartate Amino Transferase 24 U/L (14-36); Bilirubin,Total 0.3 mg/dL (0.2-1.3); Blood Urea Nitrogen 14 mg/dL (7-17); Calcium 8.1 mg/dL (8.4-10.2); Carbon Dioxide 24 mmol/L (22-30); Chloride 105 mmol/L (98-107); Estimated CRCL calculation 96 ml/min; Estimated Glomerular Filt Rate > 60; Glucose 98 mg/dL (65-110); Potassium 3.3 mmol/L (3.4-5.0); Sodium 139 mmol/L (137-145)
[2022-03-28 09:59] LABS: Hematocrit 29.7 % (37.0-47.0); Hemoglobin 9.2 g/dL (12.0-15.0)
[2022-03-28] MEDS: IRON SUCROSE COMPLEX 200 MG in SODIUM CHLORIDE 0.9% IV 50 ML 120 MG IVPB (10:52)
[2022-03-28] MEDS: POTASSIUM CHLORIDE 20 MEQ TABLET 40 MEQ PO (10:58)
--- NOTE | 2022-03-28 13:42 | PM.IMPN ---
Progress Note: A&P Assessment and Plan (1) Facial edema: Code(s): R60.0 - Localized edema Status: Acute (2) Ureterolithiasis: Code(s): N20.1 - Calculus of ureter Status: Acute (3) Hepatitis B: Code(s): B19.10 - Unspecified viral hepatitis B without hepatic coma Status: Acute Plan # intermittent generalized edema: Unclear etiology. this is been chronic problem over the past 6 7 months. She has been treated with some medications for chronic urticaria for year and a half wonder this is steroid. This could cause or lead to swelling problem. no Renal failure. Some protein in the urine. This however needs to be monitored and recheck it as an outpatient at this could be related to her current urological problem Hepatitis B infection care here in the past recheck level ordered Found to have iron deficiency will give dose of Venofer here and will start on ferrous sulfate. Likely due to menorrhagia that she is currently having She is going to follow-up with her shafting cleaner for further evaluation on this TSH is normal ESR CRP mildly high A any another inflammatory marker testings are pending which is followed up as an outpatient basis H&H lowered however recheck was stable Okay to discharge from medical standpoint Need to follow-up closely with PCP Discussed with PCP regarding this. Subjective Date/time seen: 03/28/22 13:42 Interval history: feeling better today. States her swelling has improved. She states he has been ongoing menstruation since past 2 months. She had a ultrasound of the pelvis done but results are not known. She is following up with shafting cleaner. Review of Systems Review of Systems: All systems reviewed & are unremarkable except as noted in HPI and below Exam Narrative: GENERAL: The patient is well developed, not in acute distress HEENT: Nonicteric sclerae, PERRLA, EOMI. Oropharynx clear. Moist mucous membranes. Conjunctivae appear well perfused. face is bit swollen CHEST: Chest wall is nontender. HEART: Regular rate and rhythm without murmur, rubs, or gallops LUNGS: Clear to auscultation bilaterally. no respiratory distress ABDOMEN: Soft, positive bowel sounds, non-tender, no organomegaly. SKIN: No rash, no excessive bruising, petechiae, or purpura. NEUROLOGIC: Cranial nerves II-XII intact, alert and oriented x 3, no gross motor deficits EXTREMITIES: no edema, cyanosis or clubbing Objective Data Vital Signs Vital Signs: Vital Signs - 24 hr 03/27/22 14:00 03/27/22 22:19 03/28/22 05:59 Temperature 97.6 F 97.7 F 98.4 F Pulse Rate 83 89 91 Respiratory Rate 18 16 16 Blood Pressure 142/93 H 138/96 H 129/90 Pulse Oximetry 97 100 100 Intake/Output Intake/Output: Intake & Output 03/25/22 03/26/22 03/27/22 03/28/22 23:59 23:59 23:59 23:59 Intake Total 3150 2360 240 Balance 3150 2360 240 Meds/Results Medications: Active Medications Generic Name Dose Route Start Last Admin Trade Name Freq PRN Reason Stop Dose Admin Ferrous Sulfate 324 mg 03/29/22 08:00 Ferrous Sulfate 324 Mg Tablet PO DAILY@0800 SASHA Hydromorphone HCl 1 mg 03/26/22 05:12 03/26/22 12:24 Hydromorphone Hcl Inj (*Crx) 1 Mg/Ml Syr IV PUSH 1 mg Q4H PRN Administration Pain Rated 7-10 Ceftriaxone Sodium/Dextrose 1 gm in 50 mls @ 100 mls/hr 03/27/22 06:00 03/28/22 05:33 Rocephin 1 Gm/D5w 50 Ml IVPB 100 mls/hr Q24H SASHA Administration Ondansetron HCl 4 mg 03/26/22 05:12 03/26/22 06:58 Ondansetron Inj 4 Mg/2 Ml Vial IV PUSH 4 mg Q4H PRN Administration Nausea Radiology Results: ITS Impressions Abdomen/Pelvis CT 03/26/22 06:59 IMPRESSION: 1. 8 mm stone in proximal right ureter with mild right hydronephrosis. 2. Bilateral nonobstructing kidney stones. Abdomen X-Ray 03/26/22 09:35 IMPRESSION: 1. Stones in the right kidney and proximal right ureter. Retrograde Pyelogram 03/26/22 22:06 IMPRESSION:
--- NOTE | 2022-03-28 15:44 | WPDUROPN2 ---
Progress Note: A&P Assessment and Plan (1) Hand edema: Code(s): R60.0 - Localized edema Status: Acute Assessment and Plan: Improved, f/u with PCP. Thanks to hospitalist for seeing her. (2) Facial edema: Code(s): R60.0 - Localized edema Status: Acute (3) Ureterolithiasis: Code(s): N20.1 - Calculus of ureter Status: Acute Assessment and Plan: She is tolerating her stent. She will f/u on Thursday at 2:30 at our surgery center for an ESWL with Dr. Chiang. (4) Hydronephrosis, right: Code(s): N13.30 - Unspecified hydronephrosis Status: Acute (5) Right ureteral calculus: Code(s): N20.1 - Calculus of ureter Status: Acute (6) UTI (urinary tract infection): Code(s): N39.0 - Urinary tract infection, site not specified Status: Acute Assessment and Plan: Urine Culture negative. Stop IV antibiotics. Ok to discharge home. Subjective Subjective Date/Time Seen: 03/28/22 15:44 POD #2 Cystoscopy, stent placement, retrograde pyelogram. Patient doing well with activity, tolerating stent, pain and diet. Facial edema and hand edema improving. Hospitalist did evaluate the patient and determined that there was no concerning cause. Post Op day: 2 Review of Systems Cardiovascular: Cardiovascular: Denies chest pain Respiratory: Respiratory: Reports no additional respiratory complaints Gastrointestinal: Gastrointestinal: Denies abdominal pain, Denies nausea and Denies vomiting Genitourinary: Genitourinary: Denies dysuria, Denies pelvic pain, Denies flank pain, Denies urinary incontinence, Denies urinary hesitancy and Denies urinary urgency Exam Const: General: cooperative; No comfortable Resp: Effort & Inspection: normal respiratory effort Cardio: Rate: regular rate GI: GI Palp: Yes Soft to palpation and No Tenderness to palpation present (GI) : General: Yes no CVA tenderness Extrem: Right lower extremity: no edema Left lower extremity: no edema Objective Data Vital Signs Vital Signs: Vital Signs - 24 hr 03/27/22 22:19 03/28/22 05:59 Temperature 97.7 F 98.4 F Pulse Rate 89 91 Respiratory Rate 16 16 Blood Pressure 138/96 H 129/90 Pulse Oximetry 100 100 Intake/Output Intake/Output: Intake & Output 03/25/22 03/26/22 03/27/22 03/28/22 23:59 23:59 23:59 23:59 Intake Total 3150 2360 480 Balance 3150 2360 480 Meds/Results Medications: Active Medications Generic Name Dose Route Start Last Admin Trade Name Freq PRN Reason Stop Dose Admin Ferrous Sulfate 324 mg 03/29/22 08:00 Ferrous Sulfate 324 Mg Tablet PO DAILY@0800 SASHA Hydromorphone HCl 1 mg 03/26/22 05:12 03/26/22 12:24 Hydromorphone Hcl Inj (*Crx) 1 Mg/Ml Syr IV PUSH 1 mg Q4H PRN Administration Pain Rated 7-10 Ceftriaxone Sodium/Dextrose 1 gm in 50 mls @ 100 mls/hr 03/27/22 06:00 03/28/22 05:33 Rocephin 1 Gm/D5w 50 Ml IVPB 100 mls/hr Q24H SASHA Administration Ondansetron HCl 4 mg 03/26/22 05:12 03/26/22 06:58 Ondansetron Inj 4 Mg/2 Ml Vial IV PUSH 4 mg Q4H PRN Administration Nausea Radiology Results: ITS Impressions Abdomen/Pelvis CT 03/26/22 06:59 IMPRESSION: 1. 8 mm stone in proximal right ureter with mild right hydronephrosis. 2. Bilateral nonobstructing kidney stones. Abdomen X-Ray 03/26/22 09:35 IMPRESSION: 1. Stones in the right kidney and proximal right ureter. Retrograde Pyelogram 03/26/22 22:06 IMPRESSION: 1. Right-sided urolithiasis and moderate hydronephrosis with right internal ureteral stent in expected position. Please refer to procedure note for full details. Labs Labs: Laboratory Results - last 24 hr 03/27/22 03/27/22 03/27/22 19:11 19:11 19:11 WBC RBC Hgb Hct MCV MCH MCHC RDW Plt Count MPV Immature Gran % (Auto) Neut % (Auto) Lymph % (Auto) [place] % (Auto) Eos % (Auto) Baso
--- NOTE | 2022-03-28 15:59 | PM.DS ---
DS: Admitting Diagnosis Discharge Date Right Ureteral Stone Admitting Diagnosis Right Ureteral Stone DS: Summary Hospital Course Reason for hospitalization: Right Ureteral Stone Hospital Course: The patient was admitted on 03/26/22 for an obstructing right ureteral stone that is in the proximal ureter and a possible UTI. She then underwent a Cystoscopy, right ureteroscopy with stent placement, right retrograde pyelogram. She tolerated the procedure well and went to recover in stable condition, then to the floor for further monitoring. She did well tolerating diet, pain and activity. She did c/o facial and hand edema yesterday which had been present for several months. I had the hospitalist see her to further evaluate. They determined an unclear etiology.? She has been treated with some medications for chronic urticaria for year and a half wonder this is steroid.? This could cause or lead to swelling problem.?There was no reported renal failure, but some protein in the urine.? This however needs to be monitored and recheck it as an outpatient at this could be related to her current urological problem. Hepatitis B infection care here in the past recheck level ordered. She was found to have iron deficiency will give dose of Venofer here and will start on ferrous sulfate.? Likely due to menorrhagia that she is currently having. She is going to follow-up with her global sourcing manager for further evaluation on this. TSH is normal, ESR and CRP mildly high. A any another inflammatory marker testings are pending which is followed up as an outpatient basis. H&H lowered however recheck was stable. She is ok to be discharged sarthak today. She will go home and f/u on Thursday for a right ESWL with Dr. Chiang. Resume normal activity, no straining. She will resume a normal diet and stop Levaquin that she was taking at home. Time Spent with Patient Time attestation: Total time spent providing and/or coordinating discharge services: Time spent: Greater than 30 minutes Exam Const: General: cooperative and comfortable Resp: Effort & Inspection: normal respiratory effort Cardio: Rate: regular rate GI: GI Palp: Yes Soft to palpation and No Tenderness to palpation present (GI) Extrem: Right lower extremity: no edema Left lower extremity: no edema DS: Data Data Completed and Pending Labs on day of discharge: Labs from last 24 hours 11/18/22 11/18/22 11/18/22 09:42 06:41 06:41 WBC 9.0 RBC 3.12 L Hgb 9.2 L 8.7 L Hct 29.7 L 27.3 L MCV 87.5 MCH 27.9 MCHC 31.9 L RDW 13.1 Plt Count 297 MPV 10.0 Immature Gran % (Auto) 0.7 H Neut % (Auto) 78.2 H Lymph % (Auto) 12.8 L [place] % (Auto) 7.9 Eos % (Auto) 0.2 Baso % (Auto) 0.2 Lymph # (Auto) 1.15 [place] # (Auto) 0.7 H Eos # (Auto) 0.0 Baso # (Auto) 0.0 Abs Immat Gran (auto) 0.06 H Absolute Neuts (auto) 7.0 H Absolute Nucleated RBC 0.0 Nucleated RBC % 0.0 ESR PT INR APTT Sodium 139 Potassium 3.3 L Chloride 105 Carbon Dioxide 24 Anion Gap 10 BUN 14 Creatinine 0.50 L Estim Creat Clear Calc 96 Estimated GFR > 60 Glucose 98 Hemoglobin A1c Uric Acid Calcium 8.1 L Iron TIBC % Saturation Ferritin Total Bilirubin 0.3 AST 24 ALT 35 Alkaline Phosphatase 37 L Lactate Dehydrogenase Total Creatine Kinase C-Reactive Protein Total Protein 6.0 L Albumin 3.4 L Triglycerides Cholesterol LDL Cholesterol Direct HDL Direct Vitamin B12 Vitamin D 25-Hydroxy Folate TSH (Reflex) Rheumatoid Factor PAO Screen Hepatitis A IgM Ab Hep Bs Antigen Hep B Core IgM Ab HepB DNA PCR UltraQnt Units/mL Hep B DNA Qnt log IU/mL Hepatitis C Ab Screen 03/27/22 03/27/22 03/27/22 20:42 20:42 20:42 WBC RBC Hgb Hct MCV MCH MCHC RDW Plt Count MPV Immature Gran % (Auto) Neut % (Auto)
[2022-04-01 20:31] LABS: Hepatitis B DNA PCR 21700 IU/mL; Hepatitis B DNA PCR 4.34 Log IU/mL
== END 2022-03-28 13:30 | disposition home or self-care (01) ==
LOC: ANHED 05:21 → ANH3MEDSUR 06:17
PROVIDERS: Internal Medicine; Nurse Practitioner Family; Admitting Provider Urology; Emergency Provider Emergency Medicine; PCP Emergency Medicine; Visit Provider Urology
PROC: (CPT 52352; principal; 2022-03-26 16:00)
DX: N13.2 Hydronephrosis with renal and ureteral calculous obstruction (principal); N39.0 Urinary tract infection, site not specified; R60.0 Localized edema; D50.9 Iron deficiency anemia, unspecified; R70.0 Elevated erythrocyte sedimentation rate; N92.0 Excessive and frequent menstruation with regular cycle; R79.82 Elevated C-reactive protein (CRP); B19.10 Unspecified viral hepatitis B without hepatic coma; Z87.442 Personal history of urinary calculi; Z84.89 Family history of other specified conditions; Z82.49 Family history of ischemic heart disease and other diseases of the circulatory system; Z79.891 Long term (current) use of opiate analgesic; Z79.899 Other long term (current) drug therapy
CPT/HCPCS: 52332; 52005; 36415; 74018; 74176; 74420; 80053; 80061; 80074; 81001; 81025; 82306; 82550; 82607; 82728; 82746; 83036; 83540; 83550; 83615; 83690; 84443; 84550; 85014; 85018; 85025; 85610; 85652; 85730; 86038; 86140; 86430; 87086; 87517; 96361; 96365; 96375; 96376; 99285; A9270; C1769; C2617; G0378; J0696; J1100; J1170; J1756; J2270; J2405; J3010; J7030; J7120

== ENCOUNTER 2022-04-09 08:53 | Emergency (ER) | payer BC, SELFPAY ==
--- NOTE | ~2022-04-09 | CT_ITS ---
EXAMINATION: CT abdomen pelvis wo con DATE: 04/09/2022 11:01 INDICATION: Right flank pain, right ureteral stent placed on 03/31/2022; evaluate for possible stent displacement. History of kidney stones. TECHNIQUE: Computed tomography (CT) of the abdomen and pelvis was performed without intravenous contr ast. Automated exposure control and iterative reconstruction technique were employed. Exam dose: 225 .07 mGy-cm total exam DLP. COMPARISON: 03/26/2022 CT abdomen pelvis 03/26/2022 KUB 05/26/2021 retrograde pyelogram FINDINGS: Mild bilateral lower lobe dependent atelectasis. Mild discoid atelectasis or scarring in the medial aspect of the middle lobe. Normal heart size. No pericardial or pleural effusion. Small sliding hiatal hernia. The liver, gallbladder, bile ducts, spleen, pancreas and pancreatic duct as well as well as right adr enal gland are unremarkable. 2.2 x 3.4 cm soft tissue mass of left adrenal gland is again noted. There are several nonobstructing right renal calculi measuring up to approximately 4.9 mm dimension. Right internal urinary stent is noted with proximal pigtail in the right renal pelvis and distal pigt ail in the right side of the urinary bladder. No calculus is noted along the right ureter. Approximately 2.4 mm nonobstructing lower pole left renal calculus. No urinary bladder mass lesion, calculus or bladder wall thickening. The uterus measures 9.6 cm heigh t, 6 cm AP dimension with suggestion of fibroid change. Normal caliber of the abdominal aorta. No intraperitoneal or retroperitoneal or pelvic mass lesion or adenopathy or ascites. No bowel obstruction or intraperitoneal free air. Normal appendix. Small fat-containing umbilical hernia. Included skeletal structures are unremarkable. IMPRESSION: Right internal urinary stent in expected position, without displacement since 03/26/2022 retrograde pyelogram Bilateral nonobstructive nephrolithiasis Reviewed, dictated and finalized at [facility]. Reviewed, dictated and finalized at location B. Y LEVEL RECEPTIONIST IMPRESSION: Right internal urinary stent in expected position, without displac ement since 03/26/2022 retrograde pyelogram Bilateral nonobstructive nephrolithiasis
--- NOTE | ~2022-04-09 | XR_ITS ---
XR abdomen/kub 1V 04/09/2022 12:15 Indication: Right ureteral stent. Right renal stones. Procedure: KUB Comparison: 03/26/2022 Findings: Bowel gas pattern is nonobstructive. There are bilateral renal stones. Right internal urete ral stent in expected position. No definite stones are identified in the expected course of the urete rs. Impression: 1: Bilateral nephrolithiasis. Reviewed, dictated and finalized at location A. PROCESSING OPERATOR Impression: 1: Bilateral nephrolithiasis.
[2022-04-09 09:02] VITALS: BP 140/94; PULSE 81; RESP 16; TEMP 36.5; O2SAT 100
[2022-04-09 09:13] VITALS: O2SAT 100
[2022-04-09 09:15] VITALS: O2SAT 100
--- NOTE | 2022-04-09 09:44 | ED.BACK ---
HPI - Back Pain/Injury General Chief Complaint: Back Pain/Injury Stated Complaint: Right stent placed, pain and hematuria Time Seen by Provider: 04/09/22 09:23 Source: patient Mode of arrival: ambulatory Limitations: no limitations and language barrier History of Present Illness HPI Narrative: Patient is a 42-year-old female who presents the ED with report of hematuria and flank pain. Patient speaks [place] Mandarin. D-Sight assistant to the director was utilized for assistance with translation. Patient reports she had several urologic procedures performed here within the last month, as well as a right ESWL and ureteral stent placed on 03/[address] Chiang in [place]. She was supposed to have the stent removed this Thursday, however there was no availability and she was rescheduled for next Thursday. She would like to have the stent removed today. She complains of hematuria and pain in her right lower abdomen, right lower back with ambulation. She was prescribed pain medicine, but has not required this. She denies fever, nausea, vomiting. Related Data Allergies Allergy/AdvReac Type Severity Reaction Status Date / Time No Known Allergies Allergy Verified 02/25/22 09:07 Review of Systems Review of Systems: CONSTITUTIONAL: Denies fever, chills, or sweats. CARDIOVASCULAR: Denies chest pain. RESPIRATORY: Denies dyspnea. GASTROINTESTINAL: Reports right lower abdominal pain. Denies nausea, vomiting, or diarrhea. GENITOURINARY: Reports hematuria. MUSCULOSKELETAL: Reports right lower back/flank pain. All systems reviewed & are unremarkable except as noted in HPI and below PMFSH Past Medical History Medical History Gastritis Hepatitis B Hydronephrosis, right Menometrorrhagia Right ureteral calculus Sigmoid polyp Ureterolithiasis Surgical History Surgical History History of lithotripsy History of ureter stent Family History Family History Sibling Hepatitis B Father Hypertension Social History Social History Smoking status: Never smoker Alcohol intake: never Substance use: never Substance use type: does not use Lack of Transportation: No Lack of Food: Never True Current Housing: I Have Housing Concerned About Future Housing: No Difficulty Paying Gas/Electric Bills: No Difficulty Paying for Meds: No Currently Unemployed: No Education: Grade School Difficulty w/ Childcare or Family Care: No Gender identity (if verbalized by the patient): Female Sexual Orientation (if Verbalized by the Patient): Straight or Heterosexual Spiritual care concerns: No Exam Narrative: GENERAL: Well appearing, well-nourished, non-toxic, in no acute distress. HEAD: Normocephalic, atraumatic. NECK: Supple. No adenopathy, no masses. RESPIRATORY: Airway patent, respirations nonlabored. Clear to auscultation bilaterally, no rales, rhonchi, wheezing. CARDIOVASCULAR: Regular rate and rhythm without murmurs, rubs, or gallops. Peripheral pulses 2+ and equal bilaterally. ABDOMINAL: Soft, mild tenderness palpation in right lower quadrant. Nondistended, no hepatosplenomegaly. Normoactive BS. Mild R sided CVA tenderness to percussion. MUSCULOSKELETAL: Moves all extremities. Strength/ROM intact without gross deformities. SKIN: Warm, dry, normal color. No rashes. NEURO: A&O X3. Speech clear. Cranial nerves II-XII grossly intact. Steady gait. No ataxic movements. PSYCHIATRIC: Appropriate mood and affect. Normal interaction. Course Consultations Consultation #1: Discussed case with Zoie Trammell, urology, will discuss with Dr. Seay and try to come down to ED to remove stent. Date: 04/09/22 Time: 11:58 Vital Signs Vital signs: Vital Signs Temperature 97.7 F 04/09/22 09:02 Pulse Rate 81
[2022-04-09 09:45] LABS: Basophils Absolute Auto 0.1 K/mm3 (0.0-0.1); Basophils Percent Auto 0.5 % (0.2-1.2); Eosinophils Absolute Auto 0.1 K/mm3 (0-0.3); Eosinophils Percent Auto 0.4 % (0-4.4); Hematocrit 36.6 % (37.0-47.0); Hemoglobin 11.3 g/dL (12.0-15.0); Immature Granulocyte Absolute 0.12 K/mm3 (0.00-0.031); Immature Granulocyte Percent A 1.1 % (0-0.5); Lymphocytes Absolute Auto 1.18 K/mm3 (0.9-3.2); Lymphocytes Percent Auto 10.6 % (18.3-44.2); Mean Corpuscular HGB Conc 30.9 g/dl (32-36); Mean Corpuscular Hemoglobin 28.1 pg (26-34); Monocytes Absolute Auto 0.8 K/mm3 (0.1-0.6); Monocytes Percent Auto 7.2 % (2.6-8.5); Neutrophils Percent Auto 80.2 % (45.5-73.1); Platelet Count Result 341 k/mm3 (150-375); Red Blood Count 4.02 M/mm3 (4.2-5.4); White Blood Count 11.2 K/mm3 (4.5-10.0)
[2022-04-09 09:46] VITALS: BP 137/92
[2022-04-09 09:46] LABS: Appearance Urine Cloudy (Clear); Bilirubin Urine Negative (Negative); Blood Urine 3+ (Negative); Glucose Urine UA Negative (Negative); Ketones Urine Negative (Negative); Leukocyte Esterase Ur 1+ LEU/UL (Negative); Nitrate Urine Negative (Negative); Protein Urine 2+ mg/dL (Negative); Urobilinogen Urine 0.2 mg/dL (<2.0); pH Urine 8.5 (5.0-9.0)
[2022-04-09 09:53] LABS: Add Urine Microscopic? YES; Bacteria Urine Trace /hpf; Color Urine Light Red (Yellow); Mucus Urine Rare /lpf; RBC Urine >75 /hpf (0-2); Squamous Epithelial Cell Urine Many /hpf (Few)
[2022-04-09 09:57] LABS: Alanine Aminotransferase 31 U/L (6-35); Albumin Level 3.9 g/dL (3.5-5.1); Alkaline Phosphatase 53 U/L (38-126); Anion Gap 8 mmol/L (8-16); Aspartate Amino Transferase 32 U/L (14-36); Bilirubin,Total 0.8 mg/dL (0.2-1.3); Blood Urea Nitrogen 10 mg/dL (7-17); Calcium 8.5 mg/dL (8.4-10.2); Carbon Dioxide 21 mmol/L (22-30); Chloride 107 mmol/L (98-107); Estimated CRCL calculation 100 ml/min; Estimated Glomerular Filt Rate > 60; Glucose 97 mg/dL (65-110); Potassium 4.3 mmol/L (3.4-5.0); Sodium 136 mmol/L (137-145)
[2022-04-09] MEDS: SODIUM CHLORIDE 0.9% IV 1,000 ML 999 ML IV CONT ×2 (10:50→13:41)
--- NOTE | 2022-04-09 10:57 | PC.NURSE ---
pt to ct
[2022-04-09] MEDS: CIPROFLOXACIN 500 MG TAB PO (13:41)
== END 2022-04-09 15:09 | disposition home or self-care (01) ==
PROVIDERS: Emergency Medicine; Emergency Provider Physician Assistant; PCP Emergency Medicine
DX: N20.0 Calculus of kidney (principal); R82.998 Other abnormal findings in urine; Z46.6 Encounter for fitting and adjustment of urinary device
CPT/HCPCS: 36415; 74018; 74176; 80053; 81001; 81025; 85025; 87086; 96361; 96374; 99284; A9270; J0131; J7030

== ENCOUNTER 2022-04-21 13:21 | Outpatient (CLI) | payer BC, SELFPAY ==
--- NOTE | ~2022-04-21 | US_ITS ---
EXAMINATION: US retroperitoneal comp DATE: 04/21/2022 14:54 INDICATION: Right ureteral stone TECHNIQUE: Multiple ultrasound grayscale images of the kidneys were obtained. COMPARISON: CT dated 04/09/2022 FINDINGS: The right kidney measures 11.8 x 4.8 x 4.2 cm. The left kidney measures 11.0 x 5.1 x 5.9 cm. The kidn eys demonstrate normal echogenicity. 6 mm echogenic and shadowing stone at the upper pole of the righ t kidney. There is no hydronephrosis in either kidney. No stones identified. The bladder is normal w ith bilateral ureteral jets visualized on color Doppler. IMPRESSION: 1. 6 mm nonobstructing stone in upper pole calyx of the right kidney. Otherwise normal kidneys with no hydronephrosis. Reviewed, dictated and finalized at location A. ARE SUPERVISOR IMPRESSION: 1. 6 mm nonobstructing stone in upper pole calyx of the right kidney. Otherwis e normal kidneys with no hydronephrosis.
--- NOTE | ~2022-04-21 | XR_ITS ---
Supine and upright views of the abdomen Clinical history: Right ureteral stone COMPARISON: 04/09/2022 Findings: Bowel gas pattern is nonspecific. No evidence for obstruction or free air. Bilateral nephro lithiasis noted, unchanged. Previously noted right ureteral stent has been removed. No stones identif ied along the expected course of the ureters. Osseous structures are intact. Impression: Bilateral nephrolithiasis unchanged. Status post interval removal of right ureteral stent. No stones identified along the expected course of the ureters. Reviewed, dictated and finalized at location [] STANT CHIEF ENGINEER Impression: Bilateral nephrolithiasis unchanged. Status post interval removal of right ureteral stent. No stones identified hossein g the expected course of the ureters.
== END 2022-04-21 13:22 | disposition home or self-care (01) ==
LOC: ANHIMG 13:23
PROVIDERS: PCP Emergency Medicine; Visit Provider Urology
DX: N20.1 Calculus of ureter (principal); N20.0 Calculus of kidney; Z98.890 Other specified postprocedural states
CPT/HCPCS: 74018; 76770

== ENCOUNTER 2022-05-19 10:45 | Outpatient (CLI) | payer BC, SELFPAY ==
--- NOTE | ~2022-05-19 | XR_ITS ---
EXAMINATION: XR abdomen/kub 1V INDICATION: Right ureteral stone TECHNIQUE: Supine views of the abdomen were obtained on 2 radiographs. COMPARISON: 04/21/2022 FINDINGS: A 3 mm stone projects in the right mid kidney. There are phleboliths of the pelvis. No defi nite stones are identified along the expected courses of the ureters. A bone island is noted in the l eft ilium. There is mild osteoarthritis of the hips. IMPRESSION: 1. Right nephrolithiasis. No ureteral stone seen. Reviewed, dictated and finalized at location B. G[employer]
--- NOTE | ~2022-05-19 | US_ITS ---
EXAMINATION: US retroperitoneal comp DATE: 05/19/2022 11:25 INDICATION: RIGHT URETERAL STONE TECHNIQUE: Multiple grayscale and Doppler ultrasound images of the kidneys were obtained. COMPARISON: 04/21/2022. FINDINGS: The right kidney measures 11.1 x 4.7 x 4.7 cm. The left kidney measures 10.3 x 5.5 x 6.1 cm. The kidn eys demonstrate normal parenchymal echogenicity. 6 mm right upper pole echogenicity with posterior sh adowing. There is no hydronephrosis. The bladder is normal. IMPRESSION: 6 mm right upper pole nephrolith, otherwise unremarkable renal sonogram findings. Reviewed, dictated and finalized at location K. H TANK OPERATOR IMPRESSION: 6 mm right upper pole nephrolith, otherwise unremarkable renal sonogram finding s.
== END 2022-05-19 10:46 | disposition home or self-care (01) ==
PROVIDERS: PCP Emergency Medicine; Visit Provider Urology
DX: N20.0 Calculus of kidney (principal)
CPT/HCPCS: 74018; 76770

== ENCOUNTER 2022-05-22 14:02 | Outpatient (CLI) | payer BC, SELFPAY ==
--- NOTE | ~2022-05-22 | CT_ITS ---
EXAMINATION: CT sinus wo con DATE: 05/22/2022 14:34 INDICATION: Periorbital soft tissue swelling. Sinusitis. TECHNIQUE: Computed tomography (CT) of the paranasal sinuses was performed without contrast. Iterativ e reconstruction technique was employed. Exam dose: 352.32 mGy-cm total exam DLP. COMPARISON: None FINDINGS: There is leftward bowing of the nasal septum. Intralamellar cell of both middle nasal turbinates. There is prominent soft tissue swelling of the [place] turbinates bilaterally. The ostiomeatal units are patent bilaterally. There is an approximately 13 mm mucous retention cyst or polyp in the posterior floor of the left max illary sinus. There is an approximately 5.7 mm soft tissue opacity of the mid left ethmoid air cells. There is minimal mucoperiosteal thickening of the left frontal sinus. The mastoid air cells are normally developed and aerated. IMPRESSION: Leftward bowing of nasal septum Soft tissue prominence of the nasal turbinates Intralamellar cell of both middle nasal turbinates 13 mm mucus retention cyst or polyp of left maxillary sinus Focal 5.7 mm soft tissue opacity of mid left ethmoid air cells and minimal mucoperiosteal thickening of left frontal sinus Reviewed, dictated and finalized at Location A. Reviewed, dictated and finalized at location A. L PRODUCTION SPECIALIST IMPRESSION: Leftward bowing of nasal septum Soft tissue prominence of the nasal turbinates Intralamellar cell of both middle nasal turbinates 13 mm mucus retention cyst or polyp of left maxillary sinus Focal 5.7 mm soft tissue opacity of mid left ethmoid air cells and minimal muco periosteal thickening of left frontal sinus
== END 2022-05-22 14:03 | disposition home or self-care (01) ==
PROVIDERS: PCP Emergency Medicine; Visit Provider Emergency Medicine
DX: J32.9 Chronic sinusitis, unspecified (principal); J34.1 Cyst and mucocele of nose and nasal sinus
CPT/HCPCS: 70486

== ENCOUNTER 2022-09-05 10:36 | Emergency (ER) | payer BC, SELFPAY ==
[2022-09-05 10:39] VITALS: BP 173/119; PULSE 90; RESP 20; TEMP 36.7; O2SAT 98
--- NOTE | 2022-09-05 10:41 | ED.WOUNDLAC ---
HPI - Wound/Laceration General Chief Complaint: Wound/Laceration Stated Complaint: left finger laceration Time Seen by Provider: 09/05/22 10:41 Source: patient and RN notes reviewed Mode of arrival: ambulatory Limitations: no limitations History of Present Illness HPI narrative: patient states that she was using a knife in the kitchen accidentally slipped and cut her left index finger along the lateral aspect over the middle phalanx. Onset (ago): minute(s) (10) Extremity Location: Left: hand (Index finger) Place: work Patient tetanus UTD: Yes Context: accidental Associated symptoms: none Treatments prior to arrival: bandage Related Data Home Medications Medication Instructions Recorded Confirmed doxycycline monohydrate 50 mg 50 mg PO BID 09/05/22 09/05/22 capsule norethindrone (contraceptive) 0.35 0.35 mg PO DAILY 09/05/22 09/05/22 mg tablet sodium di- and 2 tablet PO TID 09/05/22 09/05/22 monophosphate-potassium phos monobasic 250 mg tablet (Phospha Neutral) Allergies Allergy/AdvReac Type Severity Reaction Status Date / Time No Known Allergies Allergy Verified 05/01/22 13:25 Review of Systems Review of Systems: All systems reviewed & are unremarkable except as noted in HPI and below PMFSH Past Medical History Medical History (Updated 09/05/22 @ 11:24 by Niranjan Mead MD) Gastritis Hepatitis B Hydronephrosis, right Hypertension Menometrorrhagia Right ureteral calculus Sigmoid polyp Ureterolithiasis Surgical History Surgical History History of lithotripsy History of ureter stent Family History Family History Sibling Hepatitis B Father Hypertension Social History Social History Smoking status: Never smoker Alcohol intake: never Substance use: never Substance use type: does not use Lack of Transportation: No Lack of Food: Never True Current Housing: I Have Housing Concerned About Future Housing: No Difficulty Paying Gas/Electric Bills: No Difficulty Paying for Meds: No Currently Unemployed: No Education: Grade School Difficulty w/ Childcare or Family Care: No Gender identity (if verbalized by the patient): Female Sexual Orientation (if Verbalized by the Patient): Straight or Heterosexual Spiritual care concerns: No Exam Const: General: healthy appearing, no acute distress and alert Nutritional Appearance: well nourished Orientation/consciousness: patient oriented x3 Limitations: no limitations Other: Female tech in room during examination. HENMT: Head: normal to inspection Ears: external ears normal Face/Nose/Sinus: Normal external nose present Face and sinus: normal facial exam Mouth: Yes moist mucous membranes Eyes: Conjunctivae: conjunctivae normal Pupils: Equal, round and reactive pupils present EOM: EOMs intact bilaterally Neck: Neck: normal visual inspection Resp: Effort & Inspection: normal respiratory effort Auscultation: clear to auscultation bilaterally Cardio: Rate: regular rate Rhythm: regular rhythm GI: GI Palp: Yes Soft to palpation and No Tenderness to palpation present (GI) Auscultation: normal bowel sounds Back/Spine/Pelvis: Cervical Spine: cervical ROM normal Thoracic/Lumbar Spine: thoraco-lumbar ROM normal Skin: General skin exam: normal color Rashes: no rashes Wounds: wounds noted flap left lateral 2nd finger size (3 cm), margins well approximated and open Neuro: General: patient oriented x3, moves all extremities, no focal motor deficits and CN's II-XI intact bilaterally Speech: normal speech Gait exam (Neuro): Normal gait present Extrem: General: normal to inspection and no clubbing, cyanosis or edema Psych: Mental Status: mental status grossly normal Affect: normal affect Attitude: cooperative Procedures Laceration
--- NOTE | 2022-09-05 10:56 | PC.NURSE ---
[id number] with patient assessment
[2022-09-05] MEDS: TETANUS,DIPHTHERIA,AC PERTUSSIS ADULT 0.5 ML (ADACEL) IM (11:01)
[2022-09-05 11:16] VITALS: BP 173/125; PULSE 81; RESP 18; TEMP 36.8; O2SAT 98
[2022-09-05] MEDS: cloNIDine HCL 0.1 MG TABLET 0.2 MG PO (11:24)
[2022-09-05 11:50] VITALS: BP 150/101; PULSE 88; RESP 20; TEMP 36.7; O2SAT 98
== END 2022-09-05 11:50 | disposition home or self-care (01) ==
PROVIDERS: Emergency Provider Emergency Medicine; PCP Emergency Medicine
DX: S61.211A Laceration without foreign body of left index finger without damage to nail, initial encounter (principal); I10 Essential (primary) hypertension; Z23 Encounter for immunization; W26.0XXA Contact with knife, initial encounter; Y99.0 Civilian activity done for income or pay
CPT/HCPCS: 12002; 90471; 90714; 90715; 99283; A9270

== ENCOUNTER → 2022-09-22 08:25 | Outpatient (CLI) | payer BC, SELFPAY ==
--- NOTE | ~2022-09-22 | MR_ITS ---
EXAMINATION: MR brain/brain stem wo/w con DATE: 09/22/2022 09:11 INDICATION: Headache. Eye pressure. TECHNIQUE: Magnetic resonance imaging (MRI) of the brain and brainstem was performed without and with 10 mL MultiHance intravenous contrast. COMPARISON: Sinuses CT 05/22/2022 FINDINGS: There is no intracranial hemorrhage, acute infarction, or abnormal intracranial mass lesion . There is a punctate focus of increased T2-weighted signal intensity in the right frontal lobe white matter, which is normal as an isolated finding. The ventricles are normal in size. The orbits are no rmal. There is mild mucosal thickening in the paranasal sinuses. The mastoid air cells are normal. IMPRESSION: 1. Normal brain. Reviewed, dictated and finalized at location A. IMPRESSION: 1. Normal brain.
== END ==
PROVIDERS: PCP Emergency Medicine; Visit Provider Emergency Medicine
DX: R51.9 Headache, unspecified (principal)
CPT/HCPCS: 70553; A9577

== ENCOUNTER 2022-10-31 08:18 | Outpatient (CLI) | payer BC, SELFPAY ==
[2022-10-31 08:39] LABS: Hematocrit 46.5 % (35.0-49.0); Hemoglobin 16.1 g/dL (12.0-15.0); Mean Corpuscular HGB Conc 34.6 g/dL (32.0-36.0); Mean Corpuscular Hemoglobin 33.5 pg (27.0-31.0); Mean Corpuscular Volume 96.9 fL (78.0-102.0); Mean Platelet Volume 9.4 fl (9.2-11.8); Platelet Count Result 210 K/mm3 (150-420); White Blood Count 10.2 K/mm3 (4.8-10.8)
[2022-10-31 09:15] LABS: Alanine Aminotransferase 64 U/L (14-59); Albumin Level 3.7 g/dL (3.4-5.0); Alkaline Phosphatase 128 U/L (46-116); Anion Gap 10 mmol/L (8-16); Aspartate Amino Transferase 19 U/L (15-37); Bilirubin,Total 0.8 mg/dL (0.00-1.00); Blood Urea Nitrogen 12 mg/dL (7-18); Calcium 8.3 mg/dL (8.5-10.1); Carbon Dioxide 23 mmol/L (21-32); Chloride 108 mmol/L (98-108); Estimated Glomerular Filt Rate > 60; Glucose 94 mg/dL (70-99); Osmolality Calculated 291 mOsm/kg (285-295); Potassium 3.8 mmol/L (3.5-5.1); Sodium 141 mmol/L (136-145); Total Protein 6.8 g/dL (6.4-8.2)
[2022-11-06 05:08] LABS: Hepatitis B Surface Antibody Nonreactive (Nonreactive)
== END 2022-10-31 08:19 | disposition home or self-care (01) ==
LOC: CHSLAB 08:19
PROVIDERS: PCP Emergency Medicine; Visit Provider Internal Medicine Gastroenterology
DX: B19.10 Unspecified viral hepatitis B without hepatic coma (principal)
CPT/HCPCS: 36415; 80053; 85027; 86706; 87517

== ENCOUNTER 2022-11-17 10:26 | Outpatient (CLI) | payer BC, SELFPAY ==
[2022-11-17 11:35] LABS: INR 0.9; Prothrombin Time 12.7 Seconds (11.1-14.7)
[2022-11-17 12:11] LABS: Hepatitis B Surface Antigen Positive (Negative)
[2022-11-17 12:22] LABS: Hepatitis B Surface Anti Res Negative
[2022-11-20 22:19] LABS: Hepatitis Be Antigen Nonreactive
[2022-11-21 07:35] LABS: Hepatitis B DNA PCR 150000; Hepatitis B DNA PCR 5.18
== END 2022-11-17 10:27 | disposition home or self-care (01) ==
LOC: ANHLAB 10:27
PROVIDERS: PCP Emergency Medicine; Visit Provider Nurse Practitioner
DX: B19.10 Unspecified viral hepatitis B without hepatic coma (principal); B18.1 Chronic viral hepatitis B without delta-agent; R79.89 Other specified abnormal findings of blood chemistry
CPT/HCPCS: 36415; 85610; 86706; 87340; 87350; 87517

== ENCOUNTER 2022-11-25 07:57 | Outpatient (CLI) | payer BC, SELFPAY ==
--- NOTE | ~2022-11-25 | US_ITS ---
US abdomen limited DATE: 11/25/2022 08:43 INDICATION: Right upper quadrant abdominal pain. Elevated liver function tests. Chronic hepatitis B. TECHNIQUE: Real-time imaging of liver, pancreas, gallbladder COMPARISON: None FINDINGS: No hepatic or pancreatic space-occupying mass lesion is evident. Normal hepatopedal portal venous flow direction. The common bile duct measures 2.9 mm, normal. There is a fixed approximately 4 x 7 mm soft tissue density near the neck of the gallbladder along th e posterior wall, without shadowing, likely a gallbladder polyp. No mobile gallstones or gallbladder wall thickening or pericholecystic fluid collection are noted. Negative sonographic Spears's sign. IMPRESSION: Probable 4 x 7 mm gallbladder polyp Reviewed, dictated and finalized at Location A. Reviewed, dictated and finalized at location L.
== END 2022-11-25 07:58 | disposition home or self-care (01) ==
PROVIDERS: PCP Emergency Medicine; Visit Provider Nurse Practitioner
DX: R79.89 Other specified abnormal findings of blood chemistry (principal); B18.1 Chronic viral hepatitis B without delta-agent; R10.11 Right upper quadrant pain
CPT/HCPCS: 76705

== ENCOUNTER 2022-12-16 16:39 | Inpatient (IN) | payer BC, SELFPAY ==
[2022-12-16] VITALS (25 sets, daily range): BP systolic 123–198; BP diastolic 79–117; PULSE 65–723; RESP 14–20; TEMP 36.8; O2SAT 90–99
--- NOTE | ~2022-12-16 | XR_ITS ---
EXAMINATION: XR abdomen/kub 1V DATE: 12/17/2022 08:40 INDICATION: Right ureteral stone. TECHNIQUE: A supine view of the abdomen was obtained. COMPARISON: CT abdomen and pelvis 12/16/2022 FINDINGS: There are no dilated loops of bowel. There is a intrauterine device in expected position. T here is a persistent right-sided contrast nephrogram. There is a stone in the proximal right ureter w ith contrast opacification of the proximal collecting system and moderate right hydronephrosis. IMPRESSION: 1. Stone in the proximal right ureter with moderate right hydronephrosis. Reviewed, dictated and finalized at location A.
--- NOTE | ~2022-12-16 | CT_ITS ---
EXAMINATION: CT abdomen pelvis w con DATE: 12/16/2022 20:07 INDICATION: RLQ and R flank pain and tenderness TECHNIQUE: Computed tomography (CT) of the abdomen and pelvis was performed with 100 mL Omnipaque-350 intravenous contrast. Automated exposure control and iterative reconstruction technique were employe d. The dose-length product was 317.83 mGy-cm. COMPARISON: 04/09/2022, 03/26/2022, 02/21/2022, and 02/20/2022. FINDINGS: Lower thorax: Bilateral dependent groundglass and reticular opacities. Liver: Normal. Biliary/Gallbladder: Gallbladder is normal. No bile duct dilation. Pancreas: No mass or duct dilation. Spleen: Normal. Adrenals: Heterogeneously enhancing 3.9 cm left adrenal mass. Kidneys: Delayed right nephrogram. Moderate right perinephric stranding. Moderate pelviectasis and ca liectasis on the right. 9 x 16 mm calcification in the right UPJ. Multiple additional nonobstructing right-sided calculi are present. Left kidney is normal. GI tract: Moderate distal esophageal and gastric wall edema. No small or large bowel dilation. Normal appendix. Mesentery/Peritoneum: No ascites, mass, or free air. Retroperitoneum: No mass. Pelvis: IUD, in good position. The pelvic organs are within normal limits. Trace free pelvic fluid, w ithin physiologic range. Simple 2.3 cm left ovarian cyst, requiring no additional workup. Soft Tissues: Soft tissues and body wall unremarkable. Bones: No acute osseous finding. IMPRESSION: Mild interstitial pulmonary edema. Moderate esophagitis/gastritis. 9 x 16 mm stone at the right UPJ causing moderate obstructive uropathy. 3.9 cm enhancing left adrenal mass, recommend nonemergent but timely outpatient adrenal protocol CT f or further evaluation, unless there is a history of malignancy in which case a PET/CT is recommended. Reviewed, dictated and finalized at location K. IMPRESSION: Mild interstitial pulmonary edema. Moderate esophagitis/gastritis. 9 x 16 mm stone at the right UPJ causing moderate obstructive uropathy. 3.9 cm enhancing left adrenal mass, recommend nonemergent but timely outpatient adrenal protocol CT for further evaluation, unless there is a history of malig travis in which case a PET/CT is recommended.
--- NOTE | ~2022-12-16 | XR_ITS ---
EXAMINATION: XR retrograde pyelo w/stent RT DATE: 12/18/2022 08:17 INDICATION: Laser renal stone extraction and stent placement TECHNIQUE: 6 fluoroscopic images of the abdomen and pelvis were obtained during procedure performed arabella Ortega. Radiologist was not present for the imaging or procedure. The amount of fluoroscopy t [place] used during this procedure was 0.7 minutes. COMPARISON: 12/17/2022 and 12/16/2022 FINDINGS: Decating Machine Operator images demonstrates persistent right nephrogram and moderate right hydronephrosis with opacific ation of the right renal collecting system related to persistent obstruction from the previous noted stone at the right ureteropelvic junction. The stone is unable to be distinguished from the adjacent contrast. There is a T-shaped IUD in expected position in the central pelvis. Subsequent images demo nstrate retrograde advancement of a catheter and wire into the right renal pelvis and an upper pole c emerita respectively. On the final image a left internal ureteral stent has been placed with the proxima l loop formed in the right renal pelvis. IMPRESSION: 1. Left intrarenal stent placement in expected position. 2. No persistent right nephrogram and moderate right hydronephrosis due to a likely persistent obstru cting stone at the greater over the junction which is unable to be distinguished from the surrounding contrast. The stone is not visualized on the final images and has likely been extracted. Correlate w ith procedure note for further detail. Reviewed, dictated and finalized at location L. IMPRESSION: 1. Left intrarenal stent placement in expected position. 2. No persistent right nephrogram and moderate right hydronephrosis due to a li nelda persistent obstructing stone at the greater over the junction which is anne-marie ble to be distinguished from the surrounding contrast. The stone is not visuali zed on the final images and has likely been extracted. Correlate with procedure note for further detail.
[2022-12-16 17:14] LABS: Basophils Absolute Auto 0.1 K/mm3 (0.0-0.1); Basophils Percent Auto 0.5 % (0.2-1.2); Eosinophils Percent Auto 0.1 % (0-4.4); Hematocrit 47.9 % (37.0-47.0); Hemoglobin 15.9 g/dL (12.0-15.0); Immature Granulocyte Percent A 1.4 % (0-0.5); Lymphocytes Absolute Auto 2.58 K/mm3 (0.9-3.2); Lymphocytes Percent Auto 18.3 % (18.3-44.2); Mean Corpuscular HGB Conc 33.2 g/dl (32-36); Mean Corpuscular Hemoglobin 32.7 pg (26-34); Mean Corpuscular Volume 98.6 fl (80-100); Monocytes Percent Auto 6.9 % (2.6-8.5); Neutrophils Absolute Auto 10.3 K/mm3 (1.3-6.7); Neutrophils Percent Auto 72.8 % (45.5-73.1); Platelet Count Result 201 k/mm3 (150-375); Red Blood Count 4.86 M/mm3 (4.2-5.4); Red Cell Distribution Width 12.3 % (11.5-14.5); White Blood Count 14.1 K/mm3 (4.5-10.0)
[2022-12-16 17:25] LABS: Alanine Aminotransferase 46 U/L (6-35); Albumin Level 4.2 g/dL (3.5-5.1); Alkaline Phosphatase 145 U/L (38-126); Anion Gap 5 mmol/L (8-16); Aspartate Amino Transferase 29 U/L (14-36); Bilirubin,Total 0.7 mg/dL (0.2-1.3); Blood Urea Nitrogen 15 mg/dL (7-17); Calcium 9.1 mg/dL (8.4-10.2); Carbon Dioxide 25 mmol/L (22-30); Chloride 105 mmol/L (98-107); Estimated Glomerular Filt Rate > 60; Glucose 106 mg/dL (65-110); Lipase 112 U/L (23-300); Potassium 3.8 mmol/L (3.4-5.0); Sodium 135 mmol/L (137-145)
--- NOTE | 2022-12-16 18:03 | ED.ABDPAIN ---
HPI - Abdominal Pain General Chief Complaint: Abdominal Pain Stated Complaint: RLQ pain Time Seen by Provider: 12/16/22 17:51 History of Present Illness HPI narrative: Patient is a 42-year-old female with a history of chronic HBV presenting with right-sided abdominal pain. Patient speaks Mandarin, history was obtained using [employer] top distribution executive. States that she developed right-sided lower abdominal and lower back pain several hours ago. Associated with several episodes of vomiting. States it feels like prior episodes of kidney stones. Denies fevers, dysuria, chest pain, shortness of breath. Has not taken anything yet for pain. Related Data Home Medications Medication Instructions Recorded Confirmed norethindrone (contraceptive) 0.35 0.35 mg PO DAILY 09/05/22 12/17/22 mg tablet sodium di- and 2 tablet PO TID 09/05/22 12/17/22 monophosphate-potassium phos monobasic 250 mg tablet (Phospha Neutral) Allergies Allergy/AdvReac Type Severity Reaction Status Date / Time fentanyl AdvReac Unknown Other Verified 12/17/22 01:00 hydromorphone [From Dilaudid] AdvReac Unknown Other Verified 12/17/22 01:00 morphine AdvReac Unknown Other Verified 12/17/22 01:00 Review of Systems Review of Systems: All systems reviewed & are unremarkable except as noted in HPI and below PMFSH Past Medical History Medical History Chronic hepatitis B Elevated LFTs Gastritis Hepatitis B Hydronephrosis, right Hypertension Menometrorrhagia Polyp of gallbladder Right ureteral calculus RUQ pain Sigmoid polyp Ureterolithiasis Surgical History Surgical History History of lithotripsy History of ureter stent Family History Family History Sibling Hepatitis B Father Hypertension Social History Social History Smoking status: Never smoker Second hand tobacco smoke exposure: No Alcohol intake: never Substance use: never Substance use type: does not use Lack of Transportation: No Lack of Food: Never True Current Housing: I Have Housing Concerned About Future Housing: No Difficulty Paying Gas/Electric Bills: No Difficulty Paying for Meds: No Currently Unemployed: No Education: High School Diploma/GED Difficulty w/ Childcare or Family Care: No Gender identity (if verbalized by the patient): Female Sexual Orientation (if Verbalized by the Patient): Straight or Heterosexual Spiritual care concerns: No Exam Narrative: GENERAL: Nontoxic, uncomfortable appearing, pleasant and cooperative HEAD: Normocephalic, atraumatic. EYES: PERRLA and EOMI. ENT: Nares clear, no rhinorrhea or epistaxis. Mucous membranes moist. NECK: Supple. CHEST: Clear to auscultation. No respiratory distress. HEART: Regular rate and rhythm. ABDOMEN: Soft, +RLQ tenderness, +R CVA tenderness, no guarding or rebound EXTREMITIES: Normal range of motion. No edema. SKIN: Warm, dry, no rash. NEURO: No focal deficits. Alert and oriented x3. PSYCH: Normal mood and affect. Course Vital Signs Vital signs: Vital Signs Temperature 98.2 F 12/16/22 16:56 Pulse Rate 68 12/16/22 16:56 Respiratory Rate 16 12/16/22 16:56 Blood Pressure 165/98 H 12/16/22 16:56 Pulse Oximetry 99 12/16/22 16:56 Oxygen Delivery Room Air 12/16/22 16:56 Temperature 97.0 F L 12/18/22 11:00 Pulse Rate 81 12/18/22 11:00 Respiratory Rate 22 H 12/18/22 11:00 Blood Pressure 135/85 12/18/22 11:00 Pulse Oximetry 96 12/18/22 11:00 Oxygen Delivery Room Air 12/18/22 09:00 Oxygen Flow Rate 6 12/18/22 08:30 MDM - Abdominal Pain MDM Narrative Medical decision making narrative: Patient is a 42-year-old female presenting with right-sided abdominal and flank pain for several hours. Vitals
[2022-12-16] MEDS: ONDANSETRON INJ 4 MG/2 ML VIAL IV PUSH ×2 (18:23→20:16)
[2022-12-16 18:24] LABS: Appearance Urine Cloudy (Clear); Bacteria Urine None Seen /hpf; Bilirubin Urine Negative (Negative); Blood Urine 3+ (Negative); Color Urine Yellow (Yellow); Glucose Urine UA Negative (Negative); Ketones Urine Negative (Negative); Leukocyte Esterase Ur Negative LEU/UL (Negative); Nitrate Urine Negative (Negative); Non Pathogenic Casts 0-2; Protein Urine Trace mg/dL (Negative); RBC Urine >100 /hpf (0-2); Specific Grav Ur 1.012 (1.001-1.035); Squamous Epithelial Cell Urine Moderate /hpf (Few); Urobilinogen Urine 0.2 mg/dL (<2.0)
[2022-12-16] MEDS: HYDROmorphone HCL INJ (*CRX) 1 MG/ML SYR 0.5 MG IV PUSH (18:25)
[2022-12-16 18:26] LABS: Add Urine Microscopic? YES
[2022-12-16] MEDS: LACTATED RINGERS 1,000 ML 999 ML IV CONT ×2 (18:26→20:17)
--- NOTE | 2022-12-16 20:31 | PC.NURSE ---
pt is using a translater. Pt was given ivf and medications for nausea.
[2022-12-16] MEDS: METOCLOPRAMIDE HCL INJ 10 MG/2 ML VIAL IV PUSH (20:48)
[2022-12-16] MEDS: HYDROmorphone HCL INJ (*CRX) 1 MG/ML SYR IV PUSH (21:24)
--- NOTE | 2022-12-16 21:28 | ECG_ITS ---
Measurements Intervals [place] Rate: 68 P: 50 [place]: 146 QRS: 65 QRSD: 106 T: 56 QT: 362 QTc: 385 Interpretive Statements SINUS RHYTHM LOW QRS VOLTAGE IN PRECORDIAL LEADS [QRS DEFLECTION < 1.0 mV IN CHEST LEADS] INCOMPLETE RIGHT BUNDLE BRANCH BLOCK [90+ ms QRS DURATION, TERMINAL R IN V1/V2, 40+ ms S IN I/aVL/V4/V5/V6] ABNORMAL ECG NO PREVIOUS ECG AVAILABLE FOR COMPARISON Electronically Signed On 12-17-2022 9:24:35 CDT by Miah Espino M.D.
--- NOTE | 2022-12-16 21:28 | PM.IMHP ---
H&P: HPI History of Present Illness Date/Time: 12/16/22 21:28 Chief Complaint: This is a 42-year-old female with past medical history significant for chronic hepatitis-B, gastritis, hypertension. patient presents to the emergency room due to right flank pain, radiating to the groin area, nausea, vomiting. Patient was found to have a kidney stone at the right UPJ. Patient is been placed in observation for further evaluation management and treatment. EXAMINATION: CT abdomen pelvis w con DATE: 12/16/2022 20:07 INDICATION: RLQ and R flank pain and tenderness TECHNIQUE: Computed tomography (CT) of the abdomen and pelvis was performed with 100 mL Omnipaque-350 intravenous contrast. Automated exposure control and iterative reconstruction technique were employed. The dose-length product was 317.83 mGy-cm. COMPARISON: 04/09/2022, 03/26/2022, 02/21/2022, and 02/20/2022. FINDINGS: Lower thorax: Bilateral dependent groundglass and reticular opacities. Liver: Normal.? Biliary/Gallbladder: Gallbladder is normal. No bile duct dilation. Pancreas: No mass or duct dilation. Spleen: Normal. Adrenals: Heterogeneously enhancing 3.9 cm left adrenal mass. Kidneys: Delayed right nephrogram. Moderate right perinephric stranding. Moderate pelviectasis and caliectasis on the right. 9 x 16 mm calcification in the right UPJ. Multiple additional nonobstructing right-sided calculi are present. Left kidney is normal. GI tract: Moderate distal esophageal and gastric wall edema. No small or large bowel dilation. Normal appendix. Mesentery/Peritoneum: No ascites, mass, or free air. Retroperitoneum: No mass. Pelvis: IUD, in good position. The pelvic organs are within normal limits. Trace free pelvic fluid, within physiologic range. Simple 2.3 cm left ovarian cyst, requiring no additional workup. Soft Tissues: Soft tissues and body wall unremarkable. Bones:? No acute osseous finding. IMPRESSION: Mild interstitial pulmonary edema. Moderate esophagitis/gastritis. 9 x 16 mm stone at the right UPJ causing moderate obstructive uropathy. 3.9 cm enhancing left adrenal mass, recommend nonemergent but timely outpatient adrenal protocol CT for further evaluation, unless there is a history of malignancy in which case a PET/CT is recommended. Review of Systems Review of Systems: Right flank pain with radiation to the groin area Constitutional: Constitutional: Reports chills, Denies night sweats and Reports poor appetite Eyes: Eyes: Denies change in vision ENT: Denies dysphagia and Denies odynophagia Cardiovascular: Cardiovascular: Denies chest pain, Denies radiating jaw, neck or arm pain and Denies palpitations Respiratory: Respiratory: Denies chest congestion, Denies cough and Denies excessive phlegm production Gastrointestinal: Gastrointestinal: Reports nausea and Reports vomiting Genitourinary: Genitourinary: Reports flank pain Musculoskeletal: Musculoskeletal: Denies limited range of motion Integumentary/Breasts: Skin/Breast: Denies rash Neurologic: Denies focal weakness and Denies Sensory deficit (Neuro) Psychiatric: Psychiatric: Reports no additional psychiatric complaints and Reports as per HPI Endocrine: Endocrine: Denies cold intolerance, Denies fatigue, Denies flushing, Denies heat intolerance, Denies polyphagia and Denies palpitations Hematologic/Lymphatic: Hematologic/Lymphatic: Reports no additional hematologic/lymphatic complaints and Reports as per HPI Allergic/Immunologic: Allergic/Immunologic: Reports no additional allergic/immunologic complaints and Reports as per HPI PMFSH Past Medical History Medical History Chronic hepatitis B Elevated LFTs Gastritis Hepatitis B Hydronephrosis, right Hypertension Menometrorrhagia Polyp of gallbladder Right ureteral calculus RUQ pain Sigmoid polyp Ureterolithiasis Surgical History Surgical History (Reviewed 12/16/22 @ 18
--- NOTE | 2022-12-16 23:57 | PC.NURSE ---
pt sts pain is 2/10 RLQ pain
[2022-12-17 00:14] VITALS: BMI 25.8
--- NOTE | 2022-12-17 00:28 | ADMGEN ---
This patient, Crystal Godoy, was admitted to [facility] Surg Room 316-02. Patient/family oriented to hospital policies and general routines including ID bracelet, bed and alarms, visiting hours, pain management, procedures, bathroom and other care routines, personal items, smoking policy, room service/diet, and visiting hours. Information on how to activate the Rapid Response Team has been discussed. Patient/Family are encouraged to report perceived risks to care and to ask questions if they do not understand what they are told or what they should do.
[2022-12-17 00:45] VITALS: BP 161/104; PULSE 69; RESP 16; TEMP 36.9; O2SAT 96
[2022-12-17 06:00] VITALS: BP 151/91; PULSE 76; RESP 18; TEMP 37.1; O2SAT 95
--- NOTE | 2022-12-17 08:03 | PM.IMPN ---
Progress Note: A&P Assessment and Plan (1) Right nephrolithiasis: Code(s): N20.0 - Calculus of kidney Status: Inactive Assessment and Plan: Place in observation Urology consult Pain management with dilaudid and toradol Supportive care NPO IVF at 100 ml per hour PRN zofran Rocehpin Abx (2) Nausea and vomiting: Code(s): R11.2 - Nausea with vomiting, unspecified Status: Acute Assessment and Plan: Supportive care Likely secondary to 1. CT also shows moderate Gastritis and Esophagitis. Will start with IV Protonix daily. (3) Chronic hepatitis B: Code(s): B18.1 - Chronic viral hepatitis B without delta-agent Status: Acute Assessment and Plan: Continue entecavir Follow-up in outpatient setting (4) Adrenal mass: Code(s): E27.8 - Other specified disorders of adrenal gland Status: Acute Assessment and Plan: Incidental finding on CT scan -will assess hx of malignancy -recommended timely adrenal protocol CT for further evaluation vs PET/CT. Subjective Date/time seen: 12/17/22 08:03 Interval history: This is a 42-year-old female with past medical history significant for chronic hepatitis-B, gastritis, hypertension. patient presents to the emergency room due to right flank pain, radiating to the groin area, nausea, vomiting.? Patient was found to have a kidney stone at the? right UPJ.? Patient is been placed in observation for further evaluation management and treatment. Interval History: 12/17: Patient is seen resting in bed and appears comfortable. She speaks Mandarin so spectrum peer educator was used. The patient says that she has right flank pain that travels to her bladder. She also complains of nausea and headache. Unrelated she also says that for the last month to she has been having bloating and fullness after eating. She is also concerned about the adrenal mass that was found on her CT scan. I spoke with her and she does not have a history of malignancy so we do not need emergent imaging however we will have her follow up for adrenal mass CT protocol as an outpatient. Urology has already seen the patient today and she is supposed to be going for a cystoscopy with stent placement either today or in the morning. She has also been having some hypertension while here suspected to be related to pain however during our conversation she did say she is on Nebivolol 10 mg daily. She also has injected sclera likely related to hypertension. She says that for the past 7 months she has had problems with this as well as swelling and tearing from her eyes. She said the doctor told her that her tear ducts are clogged. She had been given some drops for that but it did not resolve anything. Otherwise she denies complaints. Review of Systems Review of Systems: All systems reviewed & are unremarkable except as noted in HPI and below Exam Narrative: General: well-nourished, well-appearing 42-year-old female, sitting up in bed, comfortable, NARD Neuro: awake, alert and oriented x4, speech clear, no focal neuro deficits noted HEENMT: normocephalic, atraumatic, EOMI, sclerae anicteric, moist oral mucosa, left eye with injected sclera Respiratory: Clear to auscultation bilaterally without crackles, rhonchi or wheezes, nonlabored breathing Cardio: regular rate, regular rhythm with S1-S2 Abdomen: nondistended, normoactive bowel sounds, soft, tender to palpation to RLQ and R Flank Extremities: no edema, erythema, or tenderness to palpation, DP pulses 2+ bilaterally Skin: no rashes or lesions, warm and dry Psych: appropriate mood and affect, judgment and insight intact Objective Data Vital Signs Vital Signs: Vital Signs - 24 hr 12/16/22 16:56 12/16/22 19:16 12/16/22 19:17 Temperature 98.2 F Pulse Rate 68 68 65 Respiratory Rate 16 20 20 Blood Pressure 165/98 H 178/114 H Pulse Oximetry 99 95 94 Oxygen Delivery Room Air 12/16/22 20:27 08
--- NOTE | 2022-12-17 08:14 | WPDURCON ---
Assessment and Plan Assessment and plan (1) Right ureteral calculus: Code(s): N20.1 - Calculus of ureter Status: Acute Assessment and Plan: Proceed with cysto, right retrograde, right stent placement, possible ureteroscopy with laser and stone extraction Urology Consult Note HPI Date Seen: 12/17/22 Time Seen: 08:15 Requesting Physician: Joseluis Null MD Primary Care Provider: Balwinder Wylie MD Consult Narrative Reason for consult: 9 x 16 mm right proximal ureteral stone Narrative: Crystal Godoy is a 42 year old female with a history of stones presented with right lower quadrant flank pain. Evaluation revealed a 9 by 16 mm right proximal stone with hydro. She has another large stone in the kidney. She was admitted for pain control and further management. Denies any fever. Has had some emesis associated with. She is accompanied by her son but she was able to communicate adequately at this time. Review of Systems Review of Systems: All systems reviewed & are unremarkable except as noted in HPI and below PMFSH Past Medical History Medical History Chronic hepatitis B Elevated LFTs Gastritis Hepatitis B Hydronephrosis, right Hypertension Menometrorrhagia Polyp of gallbladder Right ureteral calculus RUQ pain Sigmoid polyp Ureterolithiasis Surgical History Surgical History History of lithotripsy History of ureter stent Family History Family History Sibling Hepatitis B Father Hypertension Social History Social History Smoking status: Never smoker Second hand tobacco smoke exposure: No Alcohol intake: never Substance use: never Substance use type: does not use Lack of Transportation: No Lack of Food: Never True Current Housing: I Have Housing Concerned About Future Housing: No Difficulty Paying Gas/Electric Bills: No Difficulty Paying for Meds: No Currently Unemployed: No Education: High School Diploma/GED Difficulty w/ Childcare or Family Care: No Gender identity (if verbalized by the patient): Female Sexual Orientation (if Verbalized by the Patient): Straight or Heterosexual Spiritual care concerns: No Meds Home Medications and Allergies Home Medications Medication Instructions Recorded Confirmed Type doxycycline monohydrate 50 mg 50 mg PO BID 09/05/22 12/17/22 History capsule norethindrone (contraceptive) 0.35 0.35 mg PO DAILY 09/05/22 12/17/22 History mg tablet sodium di- and 2 tablet PO TID 09/05/22 12/17/22 History monophosphate-potassium phos monobasic 250 mg tablet (Phospha Neutral) entecavir 0.5 mg tablet 0.5 mg PO DAILY #90 tabs 11/17/22 12/17/22 Rx Allergies Allergy/AdvReac Type Severity Reaction Status Date / Time fentanyl AdvReac Unknown Other Verified 12/17/22 01:00 hydromorphone [From Dilaudid] AdvReac Unknown Other Verified 12/17/22 01:00 morphine AdvReac Unknown Other Verified 12/17/22 01:00 Vital Signs Vital Signs - 24 hr 12/16/22 16:56 12/16/22 19:16 12/16/22 19:17 Temperature 36.8 C Pulse Rate 68 68 65 Respiratory Rate 16 20 20 Blood Pressure 165/98 H 178/114 H Pulse Oximetry 99 95 94 Oxygen Delivery Room Air 12/16/22 20:27 12/16/22 20:30 12/16/22 20:31 Temperature Pulse Rate 68 72 Respiratory Rate 18 16 Blood Pressure 123/79 183/111 H Pulse Oximetry 97 97 98 Oxygen Delivery 12/16/22 20:48 12/16/22 21:12 12/16/22 21:24 Temperature Pulse Rate 70 73 72 Respiratory Rate 16 16 16 Blood Pressure 171/110 H 169/107 H Pulse Oximetry 95 95 94 Oxygen Delivery 12/16/22 21:31 12/16/22 21:36 12/16/22 21:49 Temperature Pulse Rate 723 H Respiratory Rate Blood Pressure 167/107 H Pulse Oximetry 90 90 92
[2022-12-17 08:49] LABS: Basophils Percent Auto 0.3 % (0.2-1.2); Eosinophils Percent Auto 0.1 % (0-4.4); Hemoglobin 15.8 g/dL (12.0-15.0); Immature Granulocyte Percent A 0.6 % (0-0.5); Lymphocytes Absolute Auto 0.76 K/mm3 (0.9-3.2); Lymphocytes Percent Auto 4.9 % (18.3-44.2); Mean Corpuscular HGB Conc 33.6 g/dl (32-36); Mean Corpuscular Volume 98.1 fl (80-100); Mean Platelet Volume 10.1 fl (7.4-10.4); Monocytes Absolute Auto 1.4 K/mm3 (0.1-0.6); Monocytes Percent Auto 9.1 % (2.6-8.5); Neutrophils Absolute Auto 13.3 K/mm3 (1.3-6.7); Platelet Count Result 174 k/mm3 (150-375); Red Blood Count 4.79 M/mm3 (4.2-5.4); Red Cell Distribution Width 12.4 % (11.5-14.5); White Blood Count 15.6 K/mm3 (4.5-10.0)
[2022-12-17 09:03] LABS: Alanine Aminotransferase 58 U/L (6-35); Albumin Level 4.2 g/dL (3.5-5.1); Alkaline Phosphatase 144 U/L (38-126); Anion Gap 6 mmol/L (8-16); Aspartate Amino Transferase 33 U/L (14-36); Bilirubin,Total 1.4 mg/dL (0.2-1.3); Blood Urea Nitrogen 12 mg/dL (7-17); Carbon Dioxide 24 mmol/L (22-30); Chloride 105 mmol/L (98-107); Estimated CRCL calculation 62 ml/min; Estimated Glomerular Filt Rate > 60; Glucose 122 mg/dL (65-110); Potassium 3.8 mmol/L (3.4-5.0); Sodium 135 mmol/L (137-145)
[2022-12-17] MEDS: FAMOTIDINE 20 MG/2 ML VIAL IV PUSH (09:59)
[2022-12-17] MEDS: LACTATED RINGERS 1,000 ML 100 ML IV CONT ×2 (09:59→21:14)
--- NOTE | 2022-12-17 12:27 | WPDHPUPDATE1 ---
History and Physical Update Update Date/Time: 12/17/22 12:27 History and Physical has been reviewed, including an updated exam of the patient. There are NO changes in the patient's condition. Risks, benefits, and alternatives have been discussed and questions answered. Patient agrees to proceed with procedure. Proceed with cystoscopy, right retrograde, right ureteroscopy, stent placement possible laser.
[2022-12-17 14:00] VITALS: BP 162/102; PULSE 76; RESP 18; TEMP 36.9; O2SAT 98
[2022-12-17] MEDS: KETOROLAC 15 MG/ML VIAL (*BKC) IV PUSH (15:15)
[2022-12-17] MEDS: PROCHLORPERAZINE EDISYLATE 10 MG/2 ML VIAL IV PUSH (15:15)
[2022-12-17] MEDS: diphenhydrAMINE HCl INJ 50 MG/ML VIAL 25 MG IV PUSH (15:15)
[2022-12-17 15:25] VITALS: BP 167/107; PULSE 78; RESP 14; TEMP 36.8; O2SAT 96
--- NOTE | 2022-12-17 16:30 | SUR.PREOP ---
1625: Dr. Ortega at bedside to update patient on scheduled surgery time changing from today to tomorrow's date. Orders to give patient a regular diet now and to make NPO after midnight. 1630: Patient back to room 316-02 via stretcher with nurse assist x 2 without incident.
[2022-12-17] MEDS: POTASSIUM PHOS/SODIUM PHOS 250 MG TABLET 500 MG PO (17:15)
[2022-12-17] MEDS: PANTOPRAZOLE SODIUM IV 40 MG VIAL IV PUSH (17:15)
[2022-12-17] MEDS: NEBIVOLOL HCL 5 MG TABLET 10 MG PO (17:15)
[2022-12-17 20:51] VITALS: BP 129/87; PULSE 80; RESP 16; TEMP 36.6; O2SAT 97
[2022-12-18] VITALS (12 sets, daily range): BP systolic 127–153; BP diastolic 85–105; PULSE 70–106; RESP 12–22; TEMP 35.8–36.7; O2SAT 95–99
[2022-12-18] MEDS: LACTATED RINGERS 1,000 ML 100 ML IV CONT (06:01)
[2022-12-18 06:16] LABS: Basophils Percent Auto 0.3 % (0.2-1.2); Eosinophils Percent Auto 0.2 % (0-4.4); Hematocrit 48.2 % (37.0-47.0); Hemoglobin 16.1 g/dL (12.0-15.0); Immature Granulocyte Absolute 0.14 K/mm3 (0.00-0.031); Lymphocytes Absolute Auto 0.99 K/mm3 (0.9-3.2); Lymphocytes Percent Auto 7.3 % (18.3-44.2); Mean Corpuscular HGB Conc 33.4 g/dl (32-36); Mean Corpuscular Hemoglobin 33.3 pg (26-34); Mean Corpuscular Volume 99.6 fl (80-100); Mean Platelet Volume 9.9 fl (7.4-10.4); Monocytes Absolute Auto 1.1 K/mm3 (0.1-0.6); Monocytes Percent Auto 7.9 % (2.6-8.5); Neutrophils Absolute Auto 11.3 K/mm3 (1.3-6.7); Neutrophils Percent Auto 83.3 % (45.5-73.1); Platelet Count Result 183 k/mm3 (150-375); Red Blood Count 4.84 M/mm3 (4.2-5.4); Red Cell Distribution Width 12.1 % (11.5-14.5); White Blood Count 13.6 K/mm3 (4.5-10.0)
[2022-12-18 06:25] LABS: Alanine Aminotransferase 58 U/L (6-35); Albumin Level 3.9 g/dL (3.5-5.1); Alkaline Phosphatase 115 U/L (38-126); Anion Gap 3 mmol/L (8-16); Aspartate Amino Transferase 34 U/L (14-36); Bilirubin,Total 1.4 mg/dL (0.2-1.3); Blood Urea Nitrogen 16 mg/dL (7-17); Calcium 8.7 mg/dL (8.4-10.2); Carbon Dioxide 28 mmol/L (22-30); Chloride 104 mmol/L (98-107); Estimated CRCL calculation 51 ml/min; Estimated Glomerular Filt Rate > 60; Glucose 97 mg/dL (65-110); Potassium 4.2 mmol/L (3.4-5.0); Sodium 135 mmol/L (137-145)
[2022-12-18] MEDS: LACTATED RINGERS 1,000 ML 30 ML IV CONT (06:45)
--- NOTE | 2022-12-18 06:52 | WPDANESEPPF ---
Anes - Initial Pre Proc Eval Procedure: Operation Date: 12/18/22 07:30 Proposed Procedures p Cystoscopy, Possible Right Ureteroscopy, Right Stent Placement, Possible Right Retrograde Pyelogram, Possible Right Stone Extraction, Possible Holmium Laser - Ken Ortega MD Date/Time: 12/18/22 06:52 Surgeon: Joseluis Null MD Pre Op Diagnosis: ureterolithiasis Patient Data Age: 42 Gender: F Height: 1.57 m Weight: 64 kg Last Vital Signs Temp 36.2 C L 12/18/22 05:47 Pulse 75 12/18/22 05:47 Resp 16 12/18/22 05:47 BP 133/93 H 12/18/22 05:47 Pulse Ox 95 12/18/22 05:47 O2 Del Method Room Air 12/17/22 21:05 Allergies Allergy/AdvReac Type Severity Reaction Status Date / Time fentanyl AdvReac Unknown Other Verified 12/17/22 01:00 hydromorphone [From Dilaudid] AdvReac Unknown Other Verified 12/17/22 01:00 morphine AdvReac Unknown Other Verified 12/17/22 01:00 Home Medications Medication Instructions Recorded Confirmed Type doxycycline monohydrate 50 mg 50 mg PO BID 09/05/22 12/17/22 History capsule norethindrone (contraceptive) 0.35 0.35 mg PO DAILY 09/05/22 12/17/22 History mg tablet sodium di- and 2 tablet PO TID 09/05/22 12/17/22 History monophosphate-potassium phos monobasic 250 mg tablet (Phospha Neutral) entecavir 0.5 mg tablet 0.5 mg PO DAILY #90 tabs 11/17/22 12/17/22 Rx Laboratory Tests 12/17/22 12/18/22 08:37 05:54 WBC 15.6 H K/mm3 13.6 H K/mm3 (4.5-10.0) (4.5-10.0) RBC 4.79 M/mm3 4.84 M/mm3 (4.2-5.4) (4.2-5.4) Hgb 15.8 H g/dL 16.1 H g/dL (12.0-15.0) (12.0-15.0) Hct 47.0 % 48.2 H % (37.0-47.0) (37.0-47.0) MCV 98.1 fl 99.6 fl (80-100) (80-100) MCH 33.0 pg 33.3 pg (26-34) (26-34) MCHC 33.6 g/dl 33.4 g/dl (32-36) (32-36) RDW 12.4 % 12.1 % (11.5-14.5) (11.5-14.5) Plt Count 174 k/mm3 183 k/mm3 (150-375) (150-375) MPV 10.1 fl 9.9 fl (7.4-10.4) (7.4-10.4) Immature Gran % (Auto) 0.6 H % 1.0 H % (0-0.5) (0-0.5) Neut % (Auto) 85.0 H % 83.3 H % (45.5-73.1) (45.5-73.1) Lymph % (Auto) 4.9 L % 7.3 L % (18.3-44.2) (18.3-44.2) [place] % (Auto) 9.1 H % 7.9 % (2.6-8.5) (2.6-8.5) Eos % (Auto) 0.1 % 0.2 % (0-4.4) (0-4.4) Baso % (Auto) 0.3 % 0.3 % (0.2-1.2) (0.2-1.2) Lymph # (Auto) 0.76 L K/mm3 0.99 K/mm3 (0.9-3.2) (0.9-3.2) [place] # (Auto) 1.4 H K/mm3 1.1 H K/mm3 (0.1-0.6) (0.1-0.6) Eos # (Auto) 0.0 K/mm3 0.0 K/mm3 (0-0.3) (0-0.3) Baso # (Auto) 0.0 K/mm3 0.0 K/mm3 (0.0-0.1) (0.0-0.1) Abs Immat Gran (auto) 0.10 H K/mm3 0.14 H K/mm3 (0.00-0.031) (0.00-0.031) Absolute Neuts (auto) 13.3 H K/mm3 11.3 H K/mm3 (1.3-6.7) (1.3-6.7) Absolute Nucleated RBC 0.0 K/mm3 0.0 K/mm3 (0.0-0.012) (0.0-0.012) Nucleated RBC % 0.0 % 0.0 % (0.0-0.2) (0.0-0.2) Sodium 135 L mmol/L 135 L mmol/L (137-145) (137-145) Potassium 3.8 mmol/L 4.2 mmol/L (3.4-5.0) (3.4-5.0) Chloride 105 mmol/L 104 mmol/L (98-107) (98-107) Carbon Dioxide 24 mmol/L 28 mmol/L (22-30) (22-30) Anion Gap 6 L mmol/L 3 L mmol/L (8-16) (8-16) BUN 12 mg/dL 16 mg/dL (7-17) (7-17) Creatinine 0.80 mg/dL 1.00 mg/dL (0.7-1.0) (0.7-1.0) Estim Creat Clear Calc 62 ml/min 51 ml/min Estimated GFR > 60 > 60 (59 - ) (59 - ) Glucose 122 H mg/dL 97 mg/dL (65-110) (65-110) Calcium 9.0 mg/dL 8.7 mg/dL (8.4-10.2) (8.4-10.2) Total Bilirubin 1.4 H mg/dL 1.4 H mg/dL (0.2-1.3) (0.2-1.3) AST 33 U/L 34 U/L (14-36) (14-36) ALT 58 H U/L 58 H U/L (6-35) (6-35) Alkaline Phosphatase 144 H U/L 115 U/L (38-126) (38-126) Total Protein 7.0 g/dL 7.0 g/dL (6.3-8.2) (6.3-8.2) Albumin 4.2 g/dL 3.9 g/dL (3.5-5.1) (3.5-5.1) Patient hx anesthesia problems: none Family hx anesthesia problems: none Results Review: All
--- NOTE | 2022-12-18 07:21 | WPDHPUPDATE1 ---
History and Physical Update Update Date/Time: 12/18/22 07:21 History and Physical has been reviewed, including an updated exam of the patient. There are NO changes in the patient's condition. Risks, benefits, and alternatives have been discussed and questions answered. Patient agrees to proceed with procedure. Proceed wih cystoscopy , right retrograde, right ureteroscopy with stone extraction , possible laser, stent.
--- NOTE | 2022-12-18 07:26 | SUR.PREOP ---
0700-USED VP ANCILLARY IN PRE OP TO REVIEW ALLERGIES AND REVIEW PROCEDURE. ALL QUESTION ANSWERED. PT LEFT EYE IS RED AND BLOOD SHOT, NOTED ON ARRIVAL TO PRE OP. PT STATED HER LEFT EYE IS LIKE THAT SOME MORNING SHE WAKES. UPDATED PT THAT HER BLOOD PRESSURE HAS BEEN ELEVATED WHILE IN HOSPITAL. EXPLAINED THAT NEEDS TO BE FOLLOWS AFTER DISCHARGE WELL.
[2022-12-18] MEDS: KETOROLAC 30 MG/ML VIAL (*BKC) IV PUSH (07:48)
[2022-12-18] MEDS: LIDOCAINE HCL 2% GEL UROJET 10 ML PKG MUCOUS MEM (08:06)
--- NOTE | 2022-12-18 08:09 | P.OP_ITS ---
Procedure Note - Detailed Date of Procedure 12/18/22 Pre-op Diagnosis ureterolithiasis-proximal ureteral and renal calculi 15-16 mm Post-op Diagnosis Same Procedure Performed Cystoscopy, right retrograde, right ureteroscopy with holmium laser of 2 large calculi, right ureteral stent placement 4.8 Tristanian contour Surgeon Ken Ortega MD Anesthesia General Description of Procedure Patient is taken to the operative suite correctly identified. Once anesthesia was obtained she was placed in dorsal lithotomy position prepped draped usual sterile fashion. Twenty-two Tristanian scope inserted in the bladder. There is no tumors noted. The right ureteral orifice was cannulated with a guidewire. Again she has a tortuous proximal ureter. The ureteral orifice was dilated with an 8/10 dilator. A 2nd guidewire was then inserted. Mini flexible ureteral scope was passed over the guidewire up to the kidney. The proximal UPJ stone was pushed into the lower pole. Using a Slava 200 micron fiber we lasered this stone by dusting it. There were 2 large stones measuring between 15-16 mm each. Fragments were too small to retrieve. Inspection revealed no residual significant stone burden. Pyelogram was then performed to confirm placement of the stent. 4.8 Tristanian contour stent was placed with the proximal end coiled in the renal pelvis and the distal in the bladder. The string was left attached and secured to the pubic area. 2% viscous lidocaine was inserted into the urethra. Patient is taken recovery stable condition. Will plan on removing the stent early next week. This complete dictation on this patient please send a copy to my office. Estimated Blood Loss 0 Drains Yes Packing No Pathology None sent Complications No immediate complications Condition Stable Disposition PACU
[2022-12-18] MEDS: hydrALAZINE HCL 20 MG/ML VIAL 10 MG IV PUSH (08:40)
--- NOTE | 2022-12-18 09:33 | PM.IMPN ---
Progress Note: A&P Assessment and Plan (1) Right nephrolithiasis: Code(s): N20.0 - Calculus of kidney Status: Inactive Assessment and Plan: Place in observation Urology consult Pain management with dilaudid and toradol Supportive care NPO IVF at 100 ml per hour PRN zofran Rocehpin Abx (2) Nausea and vomiting: Code(s): R11.2 - Nausea with vomiting, unspecified Status: Acute Assessment and Plan: Supportive care Likely secondary to 1. CT also shows moderate Gastritis and Esophagitis. Will start with IV Protonix daily. (3) Chronic hepatitis B: Code(s): B18.1 - Chronic viral hepatitis B without delta-agent Status: Acute Assessment and Plan: Continue entecavir Follow-up in outpatient setting (4) Adrenal mass: Code(s): E27.8 - Other specified disorders of adrenal gland Status: Acute Assessment and Plan: Incidental finding on CT scan -No history of malignancy -recommended timely adrenal protocol CT for further evaluation vs PET/CT. Subjective Date/time seen: 12/18/22 09:33 Interval history: This is a 42-year-old female with past medical history significant for chronic hepatitis-B, gastritis, hypertension. patient presents to the emergency room due to right flank pain, radiating to the groin area, nausea, vomiting.? Patient was found to have a kidney stone at the? right UPJ.? Patient is been placed in observation for further evaluation management and treatment. Interval History: 12/17: Patient is seen resting in bed and appears comfortable. She speaks Mandarin so spectrum electronics assembler was used. The patient says that she has right flank pain that travels to her bladder. She also complains of nausea and headache. Unrelated she also says that for the last month to she has been having bloating and fullness after eating. She is also concerned about the adrenal mass that was found on her CT scan. I spoke with her and she does not have a history of malignancy so we do not need emergent imaging however we will have her follow up for adrenal mass CT protocol as an outpatient. Urology has already seen the patient today and she is supposed to be going for a cystoscopy with stent placement either today or in the morning. She has also been having some hypertension while here suspected to be related to pain however during our conversation she did say she is on Nebivolol 10 mg daily. She also has injected sclera likely related to hypertension. She says that for the past 7 months she has had problems with this as well as swelling and tearing from her eyes. She said the doctor told her that her tear ducts are clogged. She had been given some drops for that but it did not resolve anything. Otherwise she denies complaints. Exam Narrative: General: well-nourished, well-appearing 42-year-old female, sitting up in bed, comfortable, NARD Neuro: awake, alert and oriented x4, speech clear, no focal neuro deficits noted HEENMT: normocephalic, atraumatic, EOMI, sclerae anicteric, moist oral mucosa, left eye with injected sclera Respiratory: Clear to auscultation bilaterally without crackles, rhonchi or wheezes, nonlabored breathing Cardio: regular rate, regular rhythm with S1-S2 Abdomen: nondistended, normoactive bowel sounds, soft, tender to palpation to RLQ and R Flank Extremities: no edema, erythema, or tenderness to palpation, DP pulses 2+ bilaterally Skin: no rashes or lesions, warm and dry Psych: appropriate mood and affect, judgment and insight intact Objective Data Vital Signs Vital Signs: Vital Signs - 24 hr 12/17/22 14:00 12/17/22 15:25 12/17/22 20:51 Temperature 98.5 F 98.2 F 97.9 F Pulse Rate 76 78 80 Respiratory Rate 18 14 16 Blood Pressure 162/102 H 167/107 H 129/87 Pulse Oximetry 98 96 97 Oxygen Delivery Room Air Oxygen Flow Rate 12/17/22 21:05 12/18/22 05:47 12/18/22 06:45 Temperature 97.2 F L 97.7 F Pulse Rate
[2022-12-18] MEDS: NEBIVOLOL HCL 5 MG TABLET 10 MG PO (10:16)
[2022-12-18] MEDS: POTASSIUM PHOS/SODIUM PHOS 250 MG TABLET 500 MG PO ×2 (10:16→13:34)
[2022-12-18] MEDS: PANTOPRAZOLE SODIUM IV 40 MG VIAL IV PUSH (10:17)
--- NOTE | 2022-12-18 12:54 | PM.DS ---
DS: Admitting Diagnosis Discharge Date December 18 Admitting Diagnosis Adrenal mass DS: Discharge Diagnosis Discharge Diagnosis (1) Right nephrolithiasis: Code(s): N20.0 - Calculus of kidney Status: Inactive Assessment and Plan: Place in observation Urology consult Pain management with dilaudid and toradol Supportive care NPO IVF at 100 ml per hour PRN zofran Rocehpin Abx (2) Nausea and vomiting: Code(s): R11.2 - Nausea with vomiting, unspecified Status: Acute Assessment and Plan: Supportive care Likely secondary to 1. CT also shows moderate Gastritis and Esophagitis. Will start with IV Protonix daily. (3) Chronic hepatitis B: Code(s): B18.1 - Chronic viral hepatitis B without delta-agent Status: Acute Assessment and Plan: Continue entecavir Follow-up in outpatient setting (4) Adrenal mass: Code(s): E27.8 - Other specified disorders of adrenal gland Status: Acute Assessment and Plan: Incidental finding on CT scan -No history of malignancy -recommended timely adrenal protocol CT for further evaluation vs PET/CT. DS: Summary Hospital Course Hospital Course: Interval history: This is a 42-year-old female with past medical history significant for chronic hepatitis-B, gastritis, hypertension. patient presents to the emergency room due to right flank pain, radiating to the groin area, nausea, vomiting.? Patient was found to have a kidney stone at the? right UPJ.? Patient is been placed in observation for further evaluation management and treatment. Interval History: 12/17:? Patient is seen resting in bed and appears comfortable.? She speaks Mandarin so spectrum quality control projectionist was used.? The patient says that she has right flank pain that travels to her bladder.? She also complains of nausea and headache.? Unrelated she also says that for the last month to she has been having bloating and fullness after eating.? She is also concerned about the adrenal mass that was found on her CT scan.? I spoke with her and she does not have a history of malignancy so we do not need emergent imaging however we will have her follow up for adrenal mass CT protocol as an outpatient.? Urology has already seen the patient today and she is supposed to be going for a cystoscopy with stent placement either today or in the morning.? She has also been having some hypertension while here suspected to be related to pain however during our conversation she did say she is on Nebivolol 10 mg daily.? She also has injected sclera likely related to hypertension.? She says that for the past 7 months she has had problems with this as well as swelling and tearing from her eyes.? She said the doctor told her that her tear ducts are clogged.? She had been given some drops for that but it did not resolve anything.? Otherwise she denies complaints. 12/18: Patient seen post cystoscopy and she is feeling well. She is tolerating liquids and is going to try eating some soup. She says that her pain is gone. Her vitals are stable and labs reviewed. She is medically ready to discharge with appropriate follow-up to Urology in 1 week for stent removal. Her Urine culture was negative for organism. She will also have an outpatient follow-up with GI for moderate gastritis found on imaging for which she has been having symptoms. She will be started on H2 bailey at discharge. She will also need to follow-up with her PCP for repeat CT imaging of her adrenal mass. I discussed this with her and she is agreeable. Time Spent with Patient Time attestation: Total time spent providing and/or coordinating discharge services:65 Exam Narrative: General: well-nourished, well-appearing 42-year-old female, sitting up in bed, comfortable, NARD Neuro: awake, alert and oriented x4, speech clear, no focal neuro deficits noted HEENMT: normocephalic, atraumatic, EOMI, sclerae anicteric, moist oral mucosa
[2022-12-18] MEDS: ENTECAVIR 0.5 MG TABLET PO (13:34)
== END 2022-12-18 15:15 | disposition home or self-care (01) | DRG 660 ==
LOC: ANHED 19:48 → ANH3MEDSUR 22:50
PROVIDERS: Urology; Admitting Provider Internal Medicine; Emergency Provider Emergency Medicine; PCP Emergency Medicine; Visit Provider Nurse Practitioner Acute Care
PROC: 0TF68ZZ Fragmentation in Right Ureter, Via Natural or Artificial Opening Endoscopic (ICD-10-PCS; CPT 52352; principal; 2022-12-18 07:30)
DX: N13.2 Hydronephrosis with renal and ureteral calculous obstruction (principal); B18.1 Chronic viral hepatitis B without delta-agent; I10 Essential (primary) hypertension; K20.90 Esophagitis, unspecified without bleeding; K29.70 Gastritis, unspecified, without bleeding; E27.8 Other specified disorders of adrenal gland; Z87.442 Personal history of urinary calculi
CPT/HCPCS: 36415; 74018; 74177; 74420; 80053; 81001; 81025; 83690; 85025; 87086; 93005; 96361; 96365; 96375; 96376; 99285; A9270; C1769; C2617; C9113; G0378; J0360; J0696; J0780; J1100; J1170; J1200; J1885; J2250; J2405; J2704; J2765; J3010; J7120; Q9966; Q9967

== ENCOUNTER 2022-12-22 15:01 | Emergency (ER) | payer BC, SELFPAY ==
--- NOTE | ~2022-12-22 | XR_ITS ---
EXAM: XR abdomen/kub 1V DATE: 12/22/2022 16:28 HISTORY: stent eval RT SIDED AND MID ABDOMINAL PAIN POST STENT . COMPARISON: 12/17/2022 x-ray retrograde pyelography with stent 12/18/2022. FINDINGS: Right ureteral stent. The proximal coil is slightly uncoiled and displaced inferiorly into the renal pelvis/proximal ureter. The distal stent traverses the bladder and urethra with the distal coil likely projects externally. IUD, in good position. Pelvic phleboliths. Multiple calculations pro ject along the ureteral stent in the distal right ureter. Clear lung bases. Normal bowel gas pattern. No organomegaly. Regional bones and soft tissues normal for age. IMPRESSION: The right ureteral stent is malpositioned, the distal stent traverses the bladder and ure thra with the distal coil likely projecting externally. Multiple distal right ureteral stones. Reviewed, dictated and finalized at location K. IMPRESSION: The right ureteral stent is malpositioned, the distal stent nathanael es the bladder and urethra with the distal coil likely projecting externally. M ultiple distal right ureteral stones.
[2022-12-22 15:36] VITALS: BP 151/102; PULSE 72; RESP 18; TEMP 36.8; O2SAT 99
--- NOTE | 2022-12-22 16:22 | PC.NURSE ---
Patient off unit to radiology.
[2022-12-22 16:35] LABS: Alanine Aminotransferase 48 U/L (6-35); Albumin Level 4.2 g/dL (3.5-5.1); Alkaline Phosphatase 111 U/L (38-126); Anion Gap 7 mmol/L (8-16); Aspartate Amino Transferase 28 U/L (14-36); Bilirubin,Total 0.7 mg/dL (0.2-1.3); Blood Urea Nitrogen 17 mg/dL (7-17); Calcium 9.2 mg/dL (8.4-10.2); Carbon Dioxide 24 mmol/L (22-30); Chloride 109 mmol/L (98-107); Estimated CRCL calculation 119 ml/min; Estimated Glomerular Filt Rate > 60; Glucose 102 mg/dL (65-110); Sodium 140 mmol/L (137-145)
--- NOTE | 2022-12-22 16:46 | ED.GENADULT ---
HPI - General Adult General Chief complaint: Urogenital-Female Stated complaint: abd pain Time Seen by Provider: 12/22/22 16:08 History of Present Illness HPI narrative: Patient is a 42-year-old female who presents ER with right-sided abdominal pain and flank pain. Recently had a lithotripsy due to obstructing calculi. She has a right-sided ureteral stent placed. She was seen by Dr. Ortega. She is currently on doxycycline and an antiviral for hepatitis B virus but she is not on anything for UTI. Denies fevers or chills or sweats. No some blood in her urine today. She reports she is leaking regularly and has trouble controlling her ability to urinate. Related Data Home Medications Medication Instructions Recorded Confirmed norethindrone (contraceptive) 0.35 0.35 mg PO DAILY 09/05/22 12/17/22 mg tablet sodium di- and 2 tablet PO TID 09/05/22 12/17/22 monophosphate-potassium phos monobasic 250 mg tablet (Phospha Neutral) Allergies Allergy/AdvReac Type Severity Reaction Status Date / Time fentanyl AdvReac Unknown Other Verified 12/17/22 01:00 hydromorphone [From Dilaudid] AdvReac Unknown Other Verified 12/17/22 01:00 morphine AdvReac Unknown Other Verified 12/17/22 01:00 Review of Systems Review of Systems: All systems reviewed & are unremarkable except as noted in HPI and below Constitutional: Constitutional: Denies chills and Denies fever(s) Respiratory: Respiratory: Denies cough, Denies dyspnea and Denies wheezing Gastrointestinal: Gastrointestinal: Reports abdominal pain, Denies nausea and Denies vomiting Genitourinary: Genitourinary: Reports hematuria, Reports nocturia, Denies dysuria, Denies flank pain and Reports urinary incontinence Musculoskeletal: Musculoskeletal: Reports back pain, Denies arthralgias and Denies muscle cramps PMF Past Medical History Medical History Chronic hepatitis B Elevated LFTs Gastritis Hepatitis B Hydronephrosis, right Hypertension Menometrorrhagia Polyp of gallbladder Right ureteral calculus RUQ pain Sigmoid polyp Ureterolithiasis Surgical History Surgical History History of lithotripsy History of ureter stent Family History Family History Sibling Hepatitis B Father Hypertension Social History Social History Smoking status: Never smoker Second hand tobacco smoke exposure: No Alcohol intake: never Substance use: never Substance use type: does not use Lack of Transportation: No Lack of Food: Never True Current Housing: I Have Housing Concerned About Future Housing: No Difficulty Paying Gas/Electric Bills: No Difficulty Paying for Meds: No Currently Unemployed: No Education: High School Diploma/GED Difficulty w/ Childcare or Family Care: No Gender identity (if verbalized by the patient): Female Sexual Orientation (if Verbalized by the Patient): Straight or Heterosexual Spiritual care concerns: No Exam Narrative: GENERAL: Well-appearing, well-nourished, and in no acute distress. HEAD: Normocephalic, atraumatic. ENT: Mucous membranes moist. NECK: Supple. CHEST: Clear to auscultation. No respiratory distress. HEART: Regular rate and rhythm. Normal peripheral pulses. ABDOMEN: Soft, nontender, nondistended, no CVA tenderness. : Blue ureteral stent coming from the urethra with black strings attached a piece of tape. Otherwise normal-appearing vagina without bleeding or discharge. EXTREMITIES: Normal range of motion. No edema. SKIN: Warm, dry, no rash. NEURO: Alert and oriented x3. PSYCH: Normal mood and affect. Course Course Emergency Course: Discussed case with urology on-call. Recommend physical insertion of the ureteral stent up through the urethra to improve patie
[2022-12-22 17:21] LABS: Basophils Absolute Auto 0.1 K/mm3 (0.0-0.1); Basophils Percent Auto 0.6 % (0.2-1.2); Eosinophils Absolute Auto 0.1 K/mm3 (0-0.3); Eosinophils Percent Auto 0.6 % (0-4.4); Hematocrit 45.3 % (37.0-47.0); Hemoglobin 15.3 g/dL (12.0-15.0); Immature Granulocyte Absolute 0.12 K/mm3 (0.00-0.031); Immature Granulocyte Percent A 1.2 % (0-0.5); Lymphocytes Absolute Auto 1.28 K/mm3 (0.9-3.2); Lymphocytes Percent Auto 12.3 % (18.3-44.2); Mean Corpuscular HGB Conc 33.8 g/dl (32-36); Mean Corpuscular Volume 97.8 fl (80-100); Monocytes Absolute Auto 0.9 K/mm3 (0.1-0.6); Monocytes Percent Auto 8.4 % (2.6-8.5); Neutrophils Percent Auto 76.9 % (45.5-73.1); Platelet Count Result 210 k/mm3 (150-375); Red Blood Count 4.63 M/mm3 (4.2-5.4); White Blood Count 10.4 K/mm3 (4.5-10.0)
[2022-12-22 18:08] LABS: Appearance Urine Clear (Clear); Bacteria Urine None Seen /hpf; Bilirubin Urine Negative (Negative); Blood Urine 3+ (Negative); Color Urine Yellow (Yellow); Glucose Urine UA Negative (Negative); Ketones Urine Negative (Negative); Leukocyte Esterase Ur Trace LEU/UL (Negative); Nitrate Urine Negative (Negative); Non Pathogenic Casts 0-2; Protein Urine 1+ mg/dL (Negative); RBC Urine >100 /hpf (0-2); Specific Grav Ur 1.015 (1.001-1.035); Squamous Epithelial Cell Urine None seen /hpf (Few); Urobilinogen Urine 0.2 mg/dL (<2.0); WBC Urine 0-5 /hpf; pH Urine 6.5 (5.0-9.0)
[2022-12-22 18:17] LABS: Add Urine Microscopic? YES
== END 2022-12-22 19:10 | disposition home or self-care (01) ==
PROVIDERS: Emergency Medicine; Emergency Provider Emergency Medicine; PCP Emergency Medicine
DX: Z46.6 Encounter for fitting and adjustment of urinary device (principal); I10 Essential (primary) hypertension; B18.1 Chronic viral hepatitis B without delta-agent; Z87.442 Personal history of urinary calculi; Z86.010 Personal history of colon polyps
CPT/HCPCS: 36415; 74018; 80053; 81001; 85025; 99283

== ENCOUNTER 2022-12-29 09:23 | Outpatient (CLI) | payer BC, SELFPAY ==
--- NOTE | ~2022-12-29 | XR_ITS ---
XR abdomen/kub 1V 12/29/2022 09:40 INDICATION: Right ureteral stone TECHNIQUE: KUB COMPARISON: Comparison to multiple prior studies sequentially, with oldest reviewed study dated 04/10. FINDINGS: Bowel gas pattern is normal. There is a right internal ureteral stent present. There is an IUD in the pelvis. There is no evidence of free air, mass, organomegaly, ascites or obstruction. Ther e are right renal stones. The bones appear intact. IMPRESSION: 1: Right nephrolithiasis. Right internal ureteral stent in expected position.. Reviewed, dictated and finalized at location B.
== END 2022-12-29 09:24 | disposition home or self-care (01) ==
PROVIDERS: PCP Emergency Medicine; Visit Provider Nurse Practitioner Adult Health
DX: N20.1 Calculus of ureter (principal)
CPT/HCPCS: 74018

== ENCOUNTER 2023-01-09 07:48 | Outpatient (CLI) | payer BC, SELFPAY ==
--- NOTE | ~2023-01-09 | CT_ITS ---
CT of the Abdomen: Indication: Adrenal mass Technique: 2.5 mm axial scans were obtained through the abdomen prior to and following intravenous a dministration of 100 cc of Omnipaque 350. Dose reduction technique was used on this scan by utilizing automated exposure control and iterative reconstruction technique. The dose-length product (DLP) was 483.20 mGy-cm. COMPARISON: 12/16/2022, 04/09/2022 Findings: Scans through the lung bases are unremarkable. There is a 3.5 x 2.8 cm left adrenal mass, similar in size to prior exam. Lesion measures 40 Hounsfie ld units on precontrast images, 160 Hounsfield units on portal venous phase images, and 81 Hounsfield units on delayed images. These numbers medial absolute washout of 65.8%, and relative washout of 49. 4%. The liver, spleen, pancreas, gallbladder, right adrenal gland, and kidneys are within normal limits. No evidence of aortic aneurysm. No lymphadenopathy. Visualized bowel loops are unremarkable. No ascites. Impression: 3.5 x 2.8 cm left adrenal mass, stable from prior exams, with washout values consistent with adenoma. Pheochromocytoma can occasionally overlap with adenoma imaging findings. Correlate for any signs/sym ptoms of this diagnosis. Reviewed, dictated and finalized at location . Impression: 3.5 x 2.8 cm left adrenal mass, stable from prior exams, with washout values co nsistent with adenoma. Pheochromocytoma can occasionally overlap with adenoma i maging findings. Correlate for any signs/symptoms of this diagnosis.
== END 2023-01-09 07:49 | disposition home or self-care (01) ==
LOC: ANHIMG 07:50
PROVIDERS: PCP Emergency Medicine; Visit Provider Emergency Medicine
DX: E27.8 Other specified disorders of adrenal gland (principal)
CPT/HCPCS: 74170; Q9967

== ENCOUNTER 2024-06-16 07:27 | Outpatient (CLI) | payer BC, SELFPAY ==
--- NOTE | ~2024-06-16 | US_ITS ---
Pelvic ultrasound. Clinical History: Dysmenorrhea Technique: Realtime transabdominal and transvaginal scanning of the pelvis was performed. Color flow Doppler and Doppler spectral analysis were performed. Findings: The uterus is anteverted. The endometrial stripe has a thickness of 11 mm. Posterior wall fibroid measures 3.6 x 3.0 x 3.1 cm. The right ovary measures 1.4 x 1.2 x 2.4 cm. No significant right ovarian or adnexal mass is seen. The left ovary is not visualized. No significant left ovarian or adnexal mass is seen. There is no evidence of free fluid in the cul de sac. Impression: 3.6 cm fibroid, as above. Left ovary not seen. Reviewed, dictated and finalized at [facility]. UNT ADVISOR Impression: 3.6 cm fibroid, as above. Left ovary not seen.
--- OUTSIDE RECORDS SUMMARY | 2024-06-16 07:32 | XMS_ITS | Data Portability ---
Author Organization [facility] Address [address] [place] [address] [place] [address] Care Team Providers Care Photography Manager Name Role Phone SY HOLLOWAY Primary Care Provider NALLELY PIERCE OTHER Assessment No assessment recorded. Plan of Treatment Reminders Order Date Submit Date Provider Last Modified By Organization Details Last Modified Time Details Appointments None recorded. Lab test, urine [email or web address] [facility] [address], [address], [place], [address], 3 16:09:26 Referral None recorded. Procedures None recorded. Surgeries None recorded. Imaging None recorded. Medication Orders progesteron e micronized 200 mg capsule 2022 023 [facility]/Pharmacy #[id number], [address] [place], [address], 3 13:18:43 Patient TargetsNo targets recorded. Patient InstructionsNo instructions recorded. Reason for Referral None Reported. Results Created Date Observation Date Name Description Value Unit Range Abnormal Flag Note LastModifiedBy Organization Detail LastModifiedTime 03/20/2003/20/2022 CBC W/DIF F WBC 9.4 10'3/ uL 3.6-10 .2 Not Available [facility] (Lab) [address], [place], [address], 03/21/2022 03:03:15 03/20/20 22 03/20/2022 CBC W/DIF F RBC 4.31 10'6/ uL (based on docume nted legal sex) 4.10-5 .30 Not Available [facility] (Lab) [address], [place], [address], 03/21/2022 03:03:15 03/20/20 22 03/20/2022 CBC W/DIF F HGB 12.1 g/dL (based on docume nted legal sex) 11.9-1 5.8 Not Available [facility] (Lab) [address], [place], [address], 03/21/2022 03:03:15 03/20/20 22 03/20/2022 CBC W/DIF F HCT 38.4 % (based on docume nted legal sex) 37.4-4 8.3 Not Available [facility] (Lab) [address], [place], [address], 03/21/2022 03:03:15 03/20/20 22 03/20/2022 CBC W/DIF F MCV 89.1 fL 82.0-9 9.0 Not Available [facility] (Lab) [address], [place], [address], 03/21/2022 03:03:15 03/20/20 22 03/20/2022 CBC W/DIF F MCH 28.1 pg 27.0-3 3.0 Not Available [facility] (Lab) [address], [place], [address], 03/21/2022 03:03:15 03/20/20 22 03/20/2022 CBC W/DIF F MCHC 31.5 g/dL 32.0-3 6.0 low Not Available [facility] (Lab) [address], [place], [address], 03/21/2022 03:03:15 03/20/20 22 03/20/2022 CBC W/DIF F RDW 13.2 % 11.0-1 5.0 Not Available [facility] (Lab) [address], [place], [address], 03/21/2022 03:03:15 03/20/20 22 03/20/2022 CBC W/DIF F plt 302 10'3/ uL 150-45 0 Not Available [facility] (Lab) [address], [place], [address], 03/21/2022 03:03:15 03/20/20 22 03/20/2022 CBC W/DIF F MPV 10.8 fL 9.8-12 .7 Not Available [facility] (Lab) [address], [place], [address], 03/21/2022 03:03:15 03/20/20 22 03/20/2022 CBC W/DIF F NRBC's 0.0 % 0 Not Available [facility] (Lab) [address] [facility], [place], [address], 03/21/2022 03:03:15 03/20/20 22 03/20/2022 CBC W/DIF F absolute NRBCs 0.0 10'3/ uL 0 Not Available [facility] (Lab) [address] [facility], [place], [address], 03/21/2022 03:03:15 03/20/20 22 03/20/2022 CBC W/DIF F neutrophils 73.9 % 37.0-7 2.0 high Not Available [facility] (Lab) [address] [facility], [place], [address], 03/21/2022 03:03:15 03/20/20 22 03/20/2022 CBC W/DIF F lymphocytes 16.3 % 16.0-4 8.0 Not Available [facility] (Lab) [address] [facility], [place], [address], 03/21/2022 03:03:15 03/20/20 22 03/20/2022 CBC W/DIF F monocytes 8.8 % 4.0-14 .0 Not Available [facility] (Lab) [address] [facility], [place], [address], 03/21/2022 03:03:15 03/20/20 22 03/20/2022 CBC W/DIF F eosinophils 0.3 % 0.0-9. 0 Not Available [facility] (Lab) [address] [facility], [place], [address], 03/21/2022 03:03:15 03/20/20 22 03/20/2022 CBC W/DIF F basophils 0.4 % 0.0-2. 0 Not Available [facility] (Lab) [address] [facility], [place], [address], 03/21/2022 03:03:15 03/20/20 22 03/20/2022 CBC W/DIF F immature granulocytes 0.3 % no define d refere nce range Not Available [facility] (Lab) [address] [facility], [place], [address], 03/21/2022 03:03:15 03/20/20 22 03/20/2022 CBC W/DIF F absolute neutrophils 6.9 10'3/ uL 1.1-6. 0 high Not Available [facility] (Lab) [address] [facility], [place], [address], 03/21/2022 03:03:15 03/20/20 22 03/20/2022 CBC W/DIF F absolute lymphocytes 1.5 10'3/ uL 0.7-3. 4 Not Available [facility] (Lab) [address] [facility], [place], [address], 03/21/2022 03:03:15 03/20/20 22 03/20/2022 CBC W/DIF F absolute monocytes 0.8 10'3/ uL 0.3-1. 0 Not Available [facility] (Lab) [address] [place], [address], 03/21/2022 03:03:15 03/20/20 22 03/20/2022 CBC W/DIF F absolute eosinophils 0.0 10'3/ uL 0.0-0. 6 Not Available [facility] (Lab) [address] [facility], [place], [address], 03/21/2022 03:03:15 03/20/20 22 03/20/2022 CBC W/DIF F absolute basophils 0.0 10'3/ uL 0.0-0. 1 Not Available [facility] (Lab) [address] [facility], [place], [address], 03/21/2022 03:03:15 03/20/20 22 03/20/2022 CBC W/DIF F absolute immature granulocytes 0.0 10'3/ uL 0.00-0 .10 03/21 1:20 AM: P indic ates parti al resul ts on a panel have been relea sed. Addit ional resul ts will follo w. 03/21 1:20 AM: This resul t has been final verif ied. No addit ional or fairchild ed resul ts are expec yenny. Not Available [facility] (Lab) [address] [facility], [place], [address], 03/21/2022 03:03:15 03/20/20 22 03/20/2022 BHCG, QUANT ITATI VE B-HCG <0.2 mIU/m L This assay was perfo rmed using [employer] n reage nts and test kits. Value s obtai vita with other assay metho ds or kits canno t be used inter fairchild eably . Refer ence Range s: Non-p regna nt, preme nopau livia women : 0.0-5 .3 mIU/m L Postm enopa usal women : 0.0-7 .0 mIU/m L Salma l Pregn han: Gesta flor l Age bHCG Conc. - mIU/m L 3 Weeks 5.8 - 71.7 4 Weeks 9.5 - 750 5 Weeks 217-7 138 6 Weeks 158 - 31,79 5 7 Weeks 3,697 - 162,5 63 8 Weeks 32,06 5 - 149,5 71 9 Weeks 63,80 3 - 151,4 10 10 Weeks 46,50 9 - 186,9 77 12 Weeks 27,83 2 - 210,6 12 14 Weeks 13,95 0 - 62,53 0 15 Weeks 12,03 9 - 70,97 1 16 Weeks 9,040 - 56,45 1 17 Weeks 8,175 - 55,86 8 18 Weeks 8,099 - 58,17 6 Not Available [facility] (Lab) [address] , [place], [address], 03/21/2022 03:03:16 03/20/20 22 03/20/2022 HEATHER TIN / IRON / TRANS HEATHER N / TIBC iron 36 ug/dL 40-170 low Not Available [facility] (Lab) [address] , [place], [address], 03/21/2022 03:03:16 03/20/20 22 03/20/2022 HEATHER TIN / IRON / TRANS HEATHER N / TIBC transferrin 335 mg/dL 200-36 0 Not Available [facility] (Lab) [address], [place], [address], 03/21/2022 03:03:16 03/20/20 22 03/20/2022 HEATHER TIN / IRON / TRANS HEATHER N / TIBC ferritin 5.8 NG/mL 8.0-25 2.0 low Not Available [facility] (Lab) [address] , [place], [address], 03/21/2022 03:03:16 03/20/20 22 03/20/2022 HEATHER TIN / IRON / TRANS HEATHER N / TIBC TIBC 469 ug/dL 250-45 0 high Not Available [facility] (Lab) [address] , [place], [address], 03/21/2022 03:03:16 03/20/20 22 03/20/2022 HEATHER TIN / IRON / TRANS HEATHER N / TIBC iron saturation 8 % 20-[address] [facility] (Lab) [address] [facility], [place], [address], 03/21/2022 03:03:16 03/20/20 22 03/20/2022 CT/GC AND TRICH OMONA S VAGIN BHARGAVI (RRNA ), URINE chlamydia trachomatis, PCR Negati ve negati ve Not Available [facility] (Lab) [address] [facility], [place], [address], 03/21/2022 18:01:32 03/20/20 22 03/20/2022 CT/GC AND TRICH OMONA S VAGIN BHARGAVI (RRNA ), URINE neisseria gonorrhoeae, PCR Negati ve negati ve Not Available [facility] (Lab) [address] [facility], [place], [address], 03/21/2022 18:01:32 03/20/20 22 03/20/2022 CT/GC AND TRICH OMONA S VAGIN BHARGAVI (RRNA ), URINE trichomonas vaginalis ribosomal RNA (rrna) Negati ve negati ve Not Available [facility] (Lab) [address] [facility], [place], [address], 03/21/2022 18:01:32 03/20/20 22 03/20/2022 pregn han test, urine HCG negati ve Not Available [place] [address], [place], [address], 03/20/2022 11:23:54 05/19/19 23 05/19/2022 SURGI GIANCARLO PATHO LOGY surgical pathology SEE RESULT S BELOW CASE REPOR T: Surgi giancarlo Patho logy Repor t Case: [id number] Autho bry mora Provi jax: Steve Bowser MD Colle cted: 05/19 1736 Order ing Locat ion: [place] [facility] Recei konrad: 05/20 0511 Patho logis t: Cyndi Gutierrez MD Speci men: Endom etriu m, EMB FINAL DIAGN OSIS: Endom etriu m, biops y: -Prol ifera tive endom etriu m with no hyper plasi a or boris robles . Elect harvey lopez by Cyndi Gutierrez MD on 2022 at 1:08 PM ----- ----- ----- ----- ----- ----- ----- ----- ----- ----- ----- ----- ----- ----- ----- ----- ----- ---- CLINI GIANCARLO INFOR MATIO N: n93.9 MICRO SCOPI C DESCR IPTIO N: A micro scopi c exami natio n was perfo rmed. GROSS DESCR IPTIO N: A. Endom etriu m. The speci men is label ed with the patie nt's name, ean rogers cs and EMB . Recei konrad in forma shirin is a 2.0 x 1.8 x 0.[address] [facility] [employer] [place] tissu e. The entir e speci men is submi tted in one casse tte. Gross ed by Adriana Allen on Not Available [facility] (Lab) [address] [facility], [place], [address], 05/20/2022 14:10:40 05/19/19 23 05/19/2022 CT/GC AND TRICH OMONA S VAGIN BHARGAVI (RRNA ), URINE chlamydia trachomatis, PCR Negati ve negati ve Not Available [facility] (Lab) [address] [facility], [place], [address], 05/20/2022 14:47:15 05/19/19 23 05/19/2022 CT/GC AND TRICH OMONA S VAGIN BHARGAVI (RRNA ), URINE neisseria gonorrhoeae, PCR Negati ve negati ve Not Available [facility] (Lab) [address] [place], [address], 05/20/2022 14:47:15 0105/19/2022 CT/GC AND TRICH OMONA S VAGIN BHARGAVI (RRNA ), URINE trichomonas vaginalis ribosomal RNA (rrna) Negati ve negati ve Not Available [facility] (Lab) [address], [place], [address], 05/20/2022 14:47:15 05/19/19 23 05/19/2022 pregn han test, urine HCG negati ve Not Available [place] [address], [place], [address], 05/19/2022 16:09:18 03/25/20 22 03/25/2022 US, pelvi s No observ ation record ed. [address], [place], [address], 03/25/2022 13:41:42 03/25/20 22 03/25/2022 US, trans vagin al No observ ation record ed. [email or web address], [place], [address], 03/25/2022 13:41:33 03/25/20 22 03/25/2022 US, pelvi s No observ ation record ed. [email or web address] Jessica [address], [place], [address], 03/28/2022 15:25:49 Result Notes None recorded. Problems Name Problem SNOMED Code Status Onset Date Resolution Date Notes Provider Name and Address Organization Details Recorded Time Type B viral hepatitis 36005879 Active 022 Not Available [facility] 3 10:11:44 Problem Notes None recorded. Procedures Surgical History Date Name Laterality Status Provider Name and Address Organization Details Recorded Time 05/19/19 23 Endometrial Biopsy completed Master Bowser MD [address], [place], [address], [facility] 05/19/2022 16:58:42 05/19/19 23 IUD Insertion completed Gabrielle Wiley [facility] 05/19/2022 16:51:08 Imaging Results Imaging Date Name Status LastModified by Organization Details LastModified Time 03/25/2022 US, pelvis completed [email or web address] [place] [address], [place], [address], 03/25/2022 13:41:42 03/25/2022 [email or web address] [address], [place], [address], 03/25/2022 13:41:33 03/25/2022 US, pelvis completed [email or web address], [place], [address], 03/28/2022 15:25:49 Procedure Notes None recorded. Medical Equipment None Reported. Allergies No known drug allergies Medications Name Sig Start Date Stop Date Status Note LastModified by Organization Details LastModified Time Mirena 21 mcg/24 hr (up to 8 years) 52 mg intrauterine device Take by intrauterin e route. active Not Available Not Available No t Available hydrocodone 5 mg-acetamino phen 325 mg tablet TAKE 1 TABLET BY MOUTH EVERY 6 HOURS NEEDED FOR PAIN active Not Available Not Available No t Available prednisolone acetate 1 % eye drops,suspen martha active Not Available Not Available Not Available ferrous sulfate 325 mg (65 mg iron) tablet TAKE 1 TABLET BY MOUTH EVERY DAY active Not Available Not Available No t Available progesterone micronized 200 mg capsule TAKE 1 CAPSULE BY MOUTH EVERY DAY FOR 12 DAYS active Not Available Not Available No t Available levofloxacin 500 mg tablet TAKE 1 TABLET BY MOUTH EVERY DAY active Not Available Not Available No t Available ondansetron 4 mg disintegrati ng tablet DISSOLVE 1 TABLET BY MOUTH EVERY 6 HOURS NEEDED FOR NAUSEA AND VOMITING *INS COVERS DAYS* active Not Available Not Available Not Available fluticasone propionate 50 mcg/actuatio n nasal spray,suspen martha SPRAY 2 SPRAYS INTO EACH NOSTRIL EVERY DAY active Not Available Not Available No t Available Vitals Date Recorded Body height Body mass index (BMI) Body weight Systolic blood pressure Diastolic blood pressure Provider Name and Address Organization Details Last Updated DateTime 04/28/2022 157.48 cm 24.7 kg/m2 57859.97 g 147 mm[Hg] 95 mm[Hg] Gabrielle Wiley [facility] 2 16:14:36 Date Recorded Body height Body mass index (BMI) Body weight Systolic blood pressure Diastolic blood pressure Provider Name and Address Organization Details Last Updated DateTime 05/19/2022 157.48 cm 24.5 kg/m2 01745.38 g 144 mm[Hg] 95 mm[Hg] Gabrielle [facility] 3 15:42:06 Date Recorded Body height Body mass index (BMI) Body weight Systolic blood pressure Diastolic blood pressure Provider Name and Address Organization Details Last Updated DateTime 06/23/2022 157.48 cm 24.9 kg/m2 25016.56 g 138 mm[Hg] 92 mm[Hg] Gabrielle [facility] 3 11:35:28 Date Recorded Body height Body mass index (BMI) Body weight Systolic blood pressure Diastolic blood pressure Systolic blood pressure Diastolic blood pressure Systolic blood pressure Diastolic blood pressure Provider Name and Address Organization Details Last Updated DateTime 3 157.48 cm 24.9 kg/m2 27176.5 6 g 160 mm[Hg] 108 mm[Hg] 175 mm[Hg] 120 mm[Hg] 140 mm[Hg] 100 mm[Hg] Gabrielle [facility] 3 12:24:26 Social History Question Answer Notes LastModified by Organizat ion Details LastModified Time Tobacco Smoking Status Never Smoker Gabrielle Wiley [facility] 08/01/2022 11:50:37 What Is Your Level Of Alcohol Consumption? Occasional Information not available 08/01/2022 Are You Blind Or Do You Have Difficulty Seeing? No Information n ot available 09/30/2021 What Is Your Level Of Caffeine Consumption? None Information not available 08/01/2022 In The 14 Days Before Symptom Onset, Have You Had Close Contact With A Laboratory-confirm ed COVID-19 While That Case Was Ill? No Information n ot available 08/01/2022 In The 14 Days Before Symptom Onset, Have You Had Close Contact With A Person Who Is Under Investigation For COVID-19 While That Person Was Ill? No Information not available 08/01/2022 Have You Been To An Area Known To Be High Risk For COVID-19? No Information not available 08/01/2022 Are You Deaf Or Do You Have Serious Difficulty Hearing? No Information not available 09/30/2021 What Type Of Diet Are You Following? REGULAR Information n ot available 09/30/2021 Are There Any Guns Present In Your Home? No Information not available 08/01/2022 Do You Have Smoke And Carbon Monoxide Detectors In Your Home? Yes Information not available 08/01/2022 Do You Use Any Illicit Or Recreational Drugs? No Information not available 08/01/2022 Do You Use Sunscreen Routinely? No Information not available 08/01/2022 Have You Used IV Drugs? No Information not available 08/01/2022 Sex: Unknown Functional Status Question Answer Note LastModified by Organizat ion Details LastModified Time Do you have difficulty walking or climbing stairs? No Information not available 08/01/2022 Are you able to walk? YESWOREST Information not available 09/30/2021 Are you able to care for yourself? Yes Information not available 08/01/2022 Do you have difficulty dressing or bathing? No Information not available 08/01/2022 What is your exercise level? Occasional Information not available 09/30/2021 Mental Status None recorded. Family History Nothing Reported. Medical History Condition Response Allergies (Food, seasonal, environmental ) N Other N Breast Cancer N Drug/Latex Allergies/Reactions N Blood Transfusion N Dermatologic Disorders N Lung Disease N Defects or Inherited Disease N Breast Problem N Gestational Diabetes N Hematologic disorders N Anesthesia Complications N History of STI N Deep Vein Thrombosis N Polycystic ovary syndrome N Anxiety Disorder N Autoimmune disease N Arthritis N Infertility N Polyps N Acid Reflux (GERD) N History of abnormal pap N Cancer N Stroke N Varicosities N Neurologic/Epilepsy N Endometriosis N High Cholesterol N Headaches N Fibromyalgia N Kidney Disease N Heart Problems N Kidney or Bladder Problems N Thyroid Problems N GI Problems N Eating Disorder N Anemia Y Art (IVF or FET) N Psychiatric Illness N Ovarian Cancer N Diabetes N Pulmonary (TB, Asthma) N Hepatitis/Liver Disease Y No Past Medical History N Eczema N Urinary Tract Infection N Abuse/Domestic Violence N Asthma N Trauma/Violence N Depression/ depression N Heart Disease N Pre-Eclampsia N Hypertension N Osteoporosis N Thrombophilias N Gynecological History Statement/Question Response Flow Moderate Date of LMP 08/13/2021 Sexually Active? Y N STIs/STDs N Was last menstrual period normal N HPV Vaccine N Date of Last Pap Smear Sexual Problems? N Current Control Method IUD LMP Approximate N Obstetrics History GPAL:G 2 P 2 0 0 2 Type Value Full Term 2 Living 2 Total 2 Past Encounters Encounter ID Performer Location Encounter Start Date Encounter Closed Date Diagnosis/Indication Diagnosis SNOMED-CT Code Diagnosis ICD10 Code Diagnosis Note [id number] ABHAY Garcia [place] [address] [address] 09/30/2021 14:39:18 09/30/2021 15:35:32 Gynecologic examination 61271059 Z01.419 Suggested Calcium with Vitamin D 1200-1500m g daily. Patient advised to get an annual flu shot in the fall and she could obtain at [facility] or [facility]. Also to obtain TDap vaccinatio n if you have not had one in the last 10 years. Recommend yearly mammograms . Encouraged monthly self breast exams. Encourage safe sexual practices, to use condoms and limit partners if not already in a monogamous relationsh ip. Engage in daily exercise of low impact aerobic exercise 45-60 minutes 4-5 times weekly. Avoid tobacco and illicit drugs as well as using moderation with alcohol intake less than 1-2 8 oz beverages daily. This lifestyle behavior pattern will lead to less health conditions and longer life span. If BMI greater than 25 weight watchers or dietary consult advised. All questions have been answered. Patient appears to understand informatio n, but if you have any questions please call or respond to this email. WWEPatient speak madarin, video vermin exterminator was used for the appointmen t.Even with use of video vermin exterminator , patient was unable to give a full health hx.Has monthly periodsSta guille she has a hx of hepatitis B, unsure how long ago, states she has an upcoming test in 1-2 months. Unsure about anything else related to this. Denies hx of HIV, Hepatitis C, or syphilis infection. States she has never had a pap smearIs not currently sexually active, has been in the past.On exam, patient has large cervical polyp. We discussed need to RTC for polyp removal, patient agrees.She had a mammogram a few weeks ago, normal per patientUTD with PCPWill request records from PCP to learn more about medical hx and hepatitis B infectionR TC for polyp removal [id number] Master Bowser MD [place] [address],[place] [address] 10/21/2021 09:21:26 10/21/2021 10:40:33 Polyp of cervix 48157334 N84.1 this patient is a 41-year-ol d female presents for removal of cervical polyp. She also has questions about her periods. She has not had a menses for 2 months. She is not per a urine test today. She does have some increased discharge. Cervical polyp was removed ring forceps. We are going to get blood for the absence of menses. She can return in 1 month if she does not have a menses. She does not have discharge that has odor or itching. Will observe. Amenorrhea 73472564 N91. 2 [id number] ABHAY Garcia [place] [address],[place] [address] 03/20/2022 09:46:44 03/20/2022 12:34:49 Abnormal uterine bleeding 3128069245 9100 N93.9 UPT (-)We agreed to update TVUS / labs / STI testingDis cussed various possible causes of AUB and need for further evalutionT VUS orderedRTC for MD consult following u/sED precaution s discussed Time spent in visit is a total of 30 mins with at least 50% of visit consisting of counseling and review of plan of care.Video vermin exterminator used for appointmen t Menorrhagia [id number] N9 2.0 Irregular periods 596274 07 N92.6 [id number] Lara Tejeda [place] [address],[place] [address] 03/25/2022 10:08:18 03/25/2022 12:13:55 Irregular periods 89672739 N92.6 N93.9 [id number] Master Bowser MD [place] [address],[place] [address] 04/14/2022 10:45:29 04/14/2022 20:49:26 [id number] Master Bowser MD [place] [address],[place] [address] 04/28/2022 15:09:27 04/29/2022 14:20:39 Abnormal uterine bleeding [id number] 9100 N93.9 this patient is a 42-year-ol d female who presents for follow-up on ultrasound . Patient has irregular bleeding that is prolonged and heavy. She has a thickened vascular endometriu m. She has a uterine fibroid. It is small and inconseque ntial. We spent over 20 minutes face-to-fa ce. More than 50% was counseling . We talked about treatment for abnormal uterine bleeding. Talked about biopsy of the endometriu m. We agreed to Mirena IUD after endometria l biopsy. [id number] Master Bowser MD [place] [address],[place] [address] 05/19/2022 15:34:06 05/19/2022 17:14:02 Screening procedure 31278822 Z13.9 Abnormal u terine bleeding [id number] 9100 N93.9 endometria l biopsy was performed and the IUD was inserted for the treatment of her bleeding. [id number] Master Bowser MD [place] [address],[place] [address] 06/23/2022 11:02:49 06/24/2022 11:06:37 Contraception care management 359987369 Z30.9 This patient is a 42-year-ol d female presents for IUD check. She has no complaints . Examinatio n revealed a normally placed IUD. The vulva, vagina and cervix appear normal with the normally placed string. [id number] Master Bowser MD [place] [address],[place] [address] 08/01/2022 11:32:20 08/01/2022 13:34:58 Anemia 686193259 D64.9 Abnormal u terine bleeding 4108683401 9100 N93.9 this patient is a 42-year-ol d female presents for follow-up on abnormal uterine bleeding. We spent over 20 minutes face-to-fa ce. More than 50% was counseling . Reviewed ultrasound results per talked about myomectomy versus hysterecto my. We talked about her IUD and status that IUD. This is all done through vermin exterminator . We ultimately agreed to continue the IUD and add oral progestero ne for 30 days. She will follow-up in 30 days. Health Concerns Section Related Observation LastModified by Organization Detai ls LastModified Time None Recorded Concern Status LastModified by Organization Details LastModified Time None Recorded Advance Directives Directive None Recorded Payers Encounter Date Sequence Insurance Name Policy Number Policy Salvador Covered Member ID Salvador Member ID Guarantor Name 04/14/2022 1 [place] [id number] Crystal Godoy [id number] Crystal Godoy 04/28/2022 1 [place] [id number] Crystal Godoy [id number] Migdali[place]assie Godoy 05/19/2022 1 [place] [id number] Crystal Godoy [id number] Crystal Godoy 06/23/2022 1 [place] [id number] Crystal Godoy [id number] Migdaliatobinabby Jayne 08/01/2022 1 [place] [id number] Crystal Godoy [id number] Kavonabby Godoy Notes Date Note Type Note Provider Name and Address Organization Details Recorded Time 04/28/2022 text/html this patient is a 42-year-old female who presents for follow-up on ultrasound. Patient has irregular bleeding that is prolonged and heavy. She has a thickened vascular endometrium. She has a uterine fibroid. It is small and inconsequential. We spent over 20 minutes [id number]. More than 50% was counseling. We talked about treatment for abnormal uterine bleeding. Talked about biopsy of the endometrium. We agreed to Mirena IUD after endometrial biopsy. Master Bowser MD [address], [place], [address], [facility] 04/28/2022 20:52:32 05/19/2022 text/html Patient presents for IUD insertion. and endometrial biopsy Master Bowser MD [address], [place], [address], [facility] 05/19/2022 17:02:00 06/23/2022 text/html This patient is a 42-year-old female presents for IUD check. She has no complaints. Examination revealed a normally placed IUD. The vulva, vagina and cervix appear normal with the normally placed string. Master Bowser MD [address], [place], [address], [facility] 06/23/2022 20:17:03 08/01/2022 text/html Mague - Abnormal BleedingReported bypatient.Notes:this patient is a 42-year-old female presents for follow-up on abnormal uterine bleeding. We spent over 20 minutes [id number]. More than 50% was counseling. Reviewed ultrasound results per talked about myomectomy versus hysterectomy. We talked about her IUD and status that IUD. This is all done through vermin exterminator. We ultimately agreed to continue the IUD and add oral progesterone for 30 days. She will follow-up in 30 days. Master Bowser MD [address], [place], [address], [facility] 08/01/2022 13:33:34 OBGyn Episode Ob Episode Information Episode Created Date Number of Fetuses Patient Bloodtype Patient rh Status Prepregnancy Weight lbs Domestic Partner Domestic Partner Phone Father Name Service Station Helper Status 10/01/19 22 1 CLOSED Fetus Data First Name Last Name Admitted to NICU Weight (g) Sex Living Outcome Pediatric Complications Fetus ID Race Codes Race Delivery Type Full Term [id number] Vaginal Delivery John Calculation Initial John Date Initial Exam Date Initial Exam Provider Initial Ultrasound Date Last Menstrual Period Date Ultra Sound Weeks Gestation 0 Eighteen To Twenty Week John Update Ultra Sound Date Fundal Height At Umbil Quickening Date Ultra Sound Latest Weeks Gestation Final John Confirmed By Final John Confirmed Date Final John Date Ultra Sound Latest Days Gestation 0 0 Menstrual History Last Menstrual Date Menses Monthly On Bcp Conception Prior Menses Frequency Hcg Plus Date Menarche Onset Age Delivery Information Delivery Date Delivery Type Labor Anesthesia Weeks Gestation Incision Type Labor Labor Length Hrs Delivered By Post Complications Tubal Sterilization Discharge Date Comments 8 Discharge Information Feeding Method Contraceptive Method Maternal HG B and HCT Levels Ob Episode Information Episode Created Date Number of Fetuses Patient Bloodtype Patient rh Status Prepregnancy Weight lbs Domestic Partner Domestic Partner Phone Father Name Service Station Helper Status 10/01/19 22 1 CLOSED Fetus Data First Name Last Name Admitted to NICU Weight (g) Sex Living Outcome Pediatric Complications Fetus ID Race Codes Race Delivery Type Full Term [id number] Vaginal Delivery John Calculation Initial John Date Initial Exam Date Initial Exam Provider Initial Ultrasound Date Last Menstrual Period Date Ultra Sound Weeks Gestation 0 Eighteen To Twenty Week John Update Ultra Sound Date Fundal Height At Umbil Quickening Date Ultra Sound Latest Weeks Gestation Final John Confirmed By Final John Confirmed Date Final John Date Ultra Sound Latest Days Gestation 0 0 Menstrual History Last Menstrual Date Menses Monthly On Bcp Conception Prior Menses Frequency Hcg Plus Date Menarche Onset Age Delivery Information Delivery Date Delivery Type Labor Anesthesia Weeks Gestation Incision Type Labor Labor Length Hrs Delivered By Post Complications Tubal Sterilization Discharge Date Comments 7 Discharge Information Feeding Method Contraceptive Method Maternal HG B and HCT Levels
--- OUTSIDE RECORDS SUMMARY | 2024-06-16 07:32 | XMS_ITS | Referral Summary ---
Author Organization [facility] Address [address] [place] [address] Care Team Providers Care Carbon Printer Name Role Phone No, Physician Primary Care Provider [phone] Allergies Active Allergy Reactions Criticality Noted Date Comments Hydromorphone Rash Medium 07/29/2022 Fentanyl Rash Medium 07/29/2022 Iodine Unknown 07/22/2021 Morphine Rash Medium 07/29/2022 Shrimp Other (See comments) Low 08/26/2022 N/a Medications ferrous sulfate 325 mg (65 mg of elemental iron) tablet ferrous sulfate 325 mg (65 mg iron) tablet TAKE 1 TABLET BY MOUTH EVERY DAY Active fluticasone propionate (FLONASE) 50 mcg/actuation nasal spray Administer 2 sprays into each nostril daily 05/29/19 23 Active HYDROcodone-acetam inophen (NORCO) 5-325 mg per tablet hydrocodone 5 mg-acetaminophen 325 mg tablet TAKE 1 TABLET BY MOUTH EVERY 6 HOURS NEEDED FOR PAIN Active levoFLOXacin (LEVAQUIN) 500 mg tablet Take 500 mg by mouth daily 05/29/19 23 Active levonorgestreL (Mirena) IUD Mirena 21 mcg/24 hours (8 yrs) 52 mg intrauterine device Take by intrauterine route. Active ondansetron ODT (ZOFRAN-ODT) 4 mg disintegrating tablet ondansetron 4 mg disintegrating tablet DISSOLVE 1 TABLET BY MOUTH EVERY 6 HOURS NEEDED FOR NAUSEA AND VOMITING *INS COVERS DAYS* Active prednisoLONE acetate (PRED FORTE) 1 % ophthalmic suspension Administer 1 drop into both eyes 2 (two) times a day 5 mL 1 07/30/19 23 Active olopatadine (PATANOL) 0.1 % ophthalmic solutionIndication s:Allergic Conjunctivitis Administer 1 drop into both eyes 2 (two) times a day 5 mL 11 08/27/19 Active Active Problems Problem Noted Date Diagnosed Date Meibomian gland dysfunction (MGD) of both eyes 0 08/31/2022 Assessment & Plan (08/31/2022 11:15 PM CDT): Moderate meibomian gland dysfunction (MGD) and marginal blepharitis. Plan for trial of doxycycline 50mg BID for 2 months. Possible side effects including photosensitivity and GI upset were discussed. They will return in 2 months. We have also prescribed Pataday due to allergic findings. Chemosis of conjunctiva of both eyes 07/31/2022 Assessment & Plan (07/31/2022 10:04 PM CDT): Bilateral chemosis, no known history of autoimmune conditions. Review of CT scans revealed no significant pathology with mild sinusitiis Plan for lab testing to assess for thyroid disease and inflammatory markers and we will start prednisolone 1% twice a day in both eyes. She will return in 4-6 weeks. 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
--- OUTSIDE RECORDS SUMMARY | 2024-06-16 07:32 | XMS_ITS | Clinical Summary ---
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 Gender Identity Not on file Sexual Orientation Not on file Obstetrics History Plan of Treatment Health Maintenance Due Date Last Done Comments Breast Cancer Screening-Mammogram 1979 Cervical Cancer Screening 1979 Colon Cancer Screening-Colonoscopy 1979 Depression Screening 1979 Hepatitis C Screening 1979 Pneumococcal vaccine <65 (1 of 2 - PCV) 1985 Regular Well Visit/Exam 18-64 1997 Influenza Vaccine (#1) 2024 DTaP/Tdap/Td Vaccine (2 - Td or Tdap) 09/05/2032 09/05/2022 HPV Vaccines Aged Out No longer eligi ble based on patient's age to complete this topic [place] Care Teams Hosiery Operator Relationship Specialty Start Date End Date No, Physician PCP - General 06/18/22
--- OUTSIDE RECORDS SUMMARY | 2024-06-16 07:33 | XMS_ITS | Continuity of Care Document ---
Author Organization [facility] Address [address] [place] [phone] Phone Care Team Providers Care Hospital Carrier Name Role Phone Balwinder Wylie MD Unavailable Unavailable Allergies, Adverse Reactions, Alerts Substance Reaction Status Criticality iodine Active No Information Medications Medication Instructions Dosage Effective Dates (start - stop) Status Comments Pepcid 20 mg tablet take 1 tablet by oral route every day 20 MG - Active hydrochlorothiazide 25 mg tablet take 1 tablet by oral route every day 25 MG - Active Bystolic 10 mg tablet take 1 Tablet by oral route every day 10 MG - Active Procedures Procedure Date PREV VISIT, EST, AGE 40-64 OFFICE/OUTPATIENT VISIT, EST OFFICE/OUTPATIENT VISIT, EST OFFICE/OUTPATIENT VISIT, EST OFFICE/OUTPATIENT VISIT, EST OFFICE/OUTPATIENT VISIT, EST OFFICE/OUTPATIENT VISIT, EST OFFICE/OUTPATIENT VISIT, EST OFFICE/OUTPATIENT VISIT, EST OFFICE/OUTPATIENT VISIT, EST OFFICE/OUTPATIENT VISIT, EST OFFICE/OUTPATIENT VISIT, EST PREV VISIT, EST, AGE 40-64 OFFICE/OUTPATIENT VISIT, EST OFFICE/OUTPATIENT VISIT, EST OFFICE/OUTPATIENT VISIT, EST PREV VISIT, NEW, AGE 40-64 OFFICE/OUTPATIENT VISIT, NEW Mar-14-2022 Advance Directives Directive Yes / No Effective Date File Name No Information Encounters Encounter Description Practice Location Reason(s) For Visit Diagnoses Date Provider Providers Copied on Encounter PREV VISIT, EST, AGE 40-64 [facility], [address], [place], [place], [id number], [place] tel:[phone] [facility] physical (chief complaint) Encounter for general adult medical exam w abnormal findingsAbnormal weight lossEsophagitisOthe r Alyson's syndromeEssential (primary) hypertensionIron deficiency anemiaMenorrhagia - 5 Dejan Mathews [address], [address], [place], [place], [address] , [place]. [phone] OFFICE/OUTPA TIENT VISIT, [facility], [address], [place], [place], [address], [place] tel:[phone] [facility] HTN (chief complaint) GERD1 (chief complaint) renal stone1 (chief complaint) adrenal mass1 (chief complaint) Disorder of adrenal gland, unspecifiedHydronep hrosis w/ kidney calculous obstructionEsophagi tisEssential (primary) hypertensionInconcl usive mammogram 3 Dejan Mathews [address], [address], [place], [place], [address] , [place]. [phone] OFFICE/OUTPA TIENT VISIT, EST [facility], [address], [place], [place], [address], [place] tel:[phone] [facility] HTN (chief complaint) period1 (chief complaint) LFT (chief complaint) low phos1 (chief complaint) Essential (primary) hypertensionHeadach eMenorrhagiaOther disorders of phosphorus metabolismLiver diseaseOcular pain of eyeIron deficiency 3 Dejan Britt. [address], [address], [place], [place], [address] , [place]. [phone] OFFICE/OUTPA TIENT VISIT, EST [facility], [address], [place], [place], [address], [place] tel:[phone] [facility] HTN (chief complaint) Essential (primary) hypertensionHeadach e September-0 3 Dejan Balwinder. [address], [address], [place], [place], [address] , [place]. tel:[phone] OFFICE/OUTPA TIENT VISIT, [facility], [address], [place], [place], [address], [place] tel:[phone] [facility] iron deficiency 1 (chief complaint) headache1 (chief complaint) eye issue1 (chief complaint) fatigue1 (chief complaint) Iron deficiencyEssential (primary) hypertensionHeadach eFatigueOcular pain of eye September-0 2 3 Wylie Balwinder. [address], [place], [place], [address] , [place]. tel:[phone] OFFICE/OUTPA TIENT VISIT, [facility], [address], [place], [place], [address], [place] tel:[phone] [facility] HTN (chief complaint) iron deficiency 1 (chief complaint) eye pressure1 (chief complaint) Iron deficiencyMenorrhag iaEssential (primary) hypertensionOcular pain of eye Jul-2 3 Wylie Balwinder. [address], [place], [place], [address] , [place]. tel:[phone] OFFICE/OUTPA TIENT VISIT, [facility], [address], [place], [place], [address], [place] tel:[phone] [facility] iron deficiency 1 (chief complaint) MenorrhagiaIron deficiency Mar-1 - 3 Wylie Balwinder. [address], [place], [place], [address] , [place]. tel:[phone] OFFICE/OUTPA TIENT VISIT, [facility], [address], [place], [place], [address], [place] tel:[phone] [facility] eye (chief complaint) wbc1 (chief complaint) Iron deficiencyLeukocyto sisSecondary polycythemiaOcular pain of eye Jul-0 8 3 Dejan Balwinder. [address], [place], [place], [address] , [place]. [phone] OFFICE/OUTPA TIENT VISIT, EST [facility], [address], [place], [place], [address], [place] tel:[phone] [facility] eye1 (chief complaint) Chronic sinusitisOcular pain of eye 3 Dejan Britt. [address], [place], [place], [address] , [place]. tel:[phone] OFFICE/OUTPA TIENT VISIT, EST [facility], [address], [place], [place], [address], [place] tel:[phone] [facility] eye1 (chief complaint) Conjunctival hemorrhage, left eyeChronic sinusitis 3 Dejan Britt. [address], [place], [place], [address] , [place]. tel:[phone] OFFICE/OUTPA TIENT VISIT, EST [facility], [address], [place], [place], [address], [place] tel:[phone] [facility] sniusitis1 (chief complaint) Chronic sinusitisHypertroph y of nasal turbinatesDeviated nasal septumOther polyp of sinus 3 Dejan Britt. [address], [place], [place], [address] , [place]. [phone] PREV VISIT, EST, AGE 40-64 [facility], [address], [place], [place], [address], [place] tel:[phone] [facility] physical (chief complaint) Encounter for general adult medical exam w abnormal findingsHepatitis BChronic sinusitisAnemiaEsse ntial (primary) hypertensionDiarrhe a 3 Dejan Britt. [address], [place], [place], [address] , [place]. [phone] OFFICE/OUTPA TIENT VISIT, EST [facility], [address], [place], [place], [address], [place] tel:[phone] [facility] Medicine diarrhea1 (chief complaint) hep B (chief complaint) renal stone1 (chief complaint) wbc (chief complaint) HTN (chief complaint) Folate deficiencyLeukocyto sisHepatitis BDiarrheaRenal stoneEssential (primary) hypertensionDisorde r of adrenal gland, unspecified 2 Dejan Britt. [address], [place], [place], [address] , [place]. tel:[phone] OFFICE/OUTPA TIENT VISIT, [facility], [address], [place], [place], [address], [place] tel:[phone] [facility] hep B (chief complaint) GI (chief complaint) WBC (chief complaint) folate (chief complaint) UTI1 (chief complaint) Hepatitis BUrticariaLeukocyto sisFolate deficiencyDiarrheaU rinary tract infectionAllergy to other foods 2 Dejan Mathews [address], [place], [place], [address] , [place]. tel:[phone] PREV VISIT, NEW, AGE 40-64 [facility], [address], [place], [place], [address], [place] tel:[phone] [facility] physical (chief complaint) Encounter for general adult medical exam w abnormal findingsUrticariaCh ronic duodenal ulcer without bleedingHepatitis BDiarrheaAbnormal weight gain 2 Dejan Mathews [address], [place], [place], [address] , [place]. [phone] Family History Family Member Type Diagnosis Age At Onset Mother Problem hepatitis B Brother Problem hepatitis B Father Problem Alive and well Payers Payer name Insurance type Covered constitution party ID Authorjovitaa harriet(s) [facility] [id number] Social History Type Description Quantity Date Captured Comments Alcohol Use Details No Caffeine Use Details Unknown Tobacco Use Status Current non-smoker Smoking Status Never smoker Sex Female Vital Signs Date / Time: Height Weight BMI Pulse Rate Blood Pressure Temperature Respiratory Rate Body Surface Area Head Circumference BMI percentile Pulse Ox Inhaled Ox 11:53 AM 62.00 in 120.60 lbs 22.0 6 kg/m eter (2) 68 /min 100/60 mm[Hg] 98.0 F 16 /min Chief Complaint And Reason For Visit From encounter dated '05/23/2024 11:53'. physical (chief complaint). Description: Pt needs annual physical Pt has chronic hep B. Pt is on anti viral medication Pt sees liver specialist. 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 Pt also is off BP meds. her bp is ok. pt overall feels well. Pt denies any other complaints Plan Of Treatment Date Type Action Status Referral Ordered: BAM BUSTAMANTE -[facility]opathic [facility] Osteopathic Physicians : Obstetrics & Gynecology (related to Menorrhagia) ordered Referral Referred To: BAM BUSTAMANTE [address] [place], [place], [phone] Ordered: Referrals: Allopathic & Osteopathic Physicians : Obstetrics & Gynecology. BAM BUSTAMANTE. Evaluate and treat ordered Referral Ordered: CT ABDOMEN W/DYE ordered Referral Ordered: MRI BRAIN W/O & W/DYE ordered Referral Ordered: Gynecology (related to Menorrhagia) ordered Referral Ordered: Referrals: Gynecology. Evaluate and treat ordered Referral Ordered: Master Bowser MD -[facility]opathic Physicians : Obstetrics & Gynecology (related to Menorrhagia) ordered Referral Referred To: Master Bowser MD, [address] [place], [phone] Ordered: Referrals: Allopathic & Osteopathic Physicians : Obstetrics & Gynecology. Master Bowser MD. Evaluate and treat ordered Referral Ordered: Hematology (related to Iron deficiency) ordered Referral Ordered: Referrals: Hematology. Evaluate and treat ordered Referral Ordered: Ophthalmology (related to Conjunctival hemorrhage, left eye) ordered Referral Ordered: Referrals: Ophthalmology. Evaluate and treat ordered Referral Ordered: Otolaryngology (related to Chronic sinusitis) ordered Referral Ordered: Referrals: Otolaryngology. Evaluate and treat ordered Referral Ordered: CT MAXILLOFACIAL W/O DYE (SINUSES) SF ordered Referral Ordered: Nate Mclain -[facility]opathic Physicians : Internal Medicine : Gastroenterology (related to Hepatitis B) ordered Referral Ordered: US EXAM, ABDOM, COMPLETE ordered Referral Referred To: Carlos Manuel Harrell MD [address]
[place], [address] Ordered: Referrals: Carlos Manuel Harrell MD Evaluate and treat ordered Referral Referred To: Nate Mclain [address] [place], [place], [phone] Ordered: Referrals: Allopathic & Osteopathic Physicians : Internal Medicine : Gastroenterology. Nate Mclain. Evaluate and treat ordered Referral Ordered: COLONOSCOPY AND BIOPSY ordered Referral Ordered: MAMMOGRAM, SCREENING ordered History Of Present Illness Encounter Date Complaint History Of Prese nt Illness physical Pt needs annual physical Pt has chronic hep B. Pt is on anti viral medication Pt sees liver specialist. 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 Pt also is off BP meds. her bp is ok. pt overall feels well. Pt denies any other complaints GERD1 Pt has intermitt ent GERD. CT showed moderate gastritis and esophagitis. Pt started pepcid since last week. Pt notices improvement of her GERD symptoms Pt denies any abd pain or nausea HTN Pt has HTN pt ta kes bystolic and her bp is mildly high .Pt denies any chest pain or headache adrenal mass1 Pt has left adre nal mass on incidental finding renal stone1 Pt had right errol al stone with hydronephrosis. Pt had to go to Er for above and she had stent placed and her stone did pass. Pt denies any flank pain or urinary symptoms now. Pt had to return to [facility] due to stent mis position and she had another procedure done by urology to fix the stent and she supposes to follow up with urology next week for stent removal. Pt has some leakage due to stent. Pt denies any flank pain, fever, chill low phos1 Pt has low phos Pt denies any myalgia, weakness LFT Pt has high LFT. Pt denies any abd pain or jaundice .pt does have hep b. Pt sees GI. Pt denies any abd pain period1 Pt has heavy per iod. Pt saw another INCIDENT RESPONSE MANAGER and she had pelvic ultrasound done which was benign Pt is not per patient from INCIDENT [employer]PONSE MANAGER HTN Pt has HTN Pt ta kes bystolic and her bp is borderline high Pt was told to increase bystolic to 10 mg but she never did. Pt states that her bp is around 140/90 at home. pt states that her headache resolved Pt had normal MRI HTN Pt has HTN and s ome headache pt started bystolic 5 mg daily and her bp is still around 160/90. Pt denies any chest pain. Pt states that her headache has been stable, not worse fatigue1 Pt has been feel ing very fatigue .Pt denies any sob or chest pain. Pt denies any snoring eye issue1 Pt has been feel ing pressure both eye for long time .Pt was evaluated by ophthalmology at [facility] recently and nothing was found. Pt denies any vision change .Pt denies any sinus pain or sore throat or hearing issue. Pt denies any dry eyes. headache1 Pt has been havi ng dull pressure headache and her bp has been consistently above 150/100 at home, Pt denies any chest pain or sob iron deficiency1 Pt has iron def iciency due to menorrhagia. Pt has small fibroid Pt is seeing a new INCIDENT RESPONSE MANAGER doctor now and she is getting work up now Pt has IUD. Pt states that she was given some pill and her heavy bleeding resolved HTN Pt went to see h er INCIDENT RESPONSE MANAGER and her bp was around 180/100 at [facility] office. pt denies any chest pain or headache Pt denies any vision change. Pt is here for BP check iron deficiency1 Pt has rather s evere iron deficiency. Pt bojorquez have very heavy and prolonged period. Pt has IUD in place by INCIDENT RESPONSE MANAGER but it did not help her slow down the bleeding Pt states that she has been bleeding slowly for 30 days Pt does have fibroid. Pt followed up with INCIDENT RESPONSE MANAGER recently and she was started on some type of hormone pills by INCIDENT RESPONSE MANAGER to try to stop bleeding but has not helped yet. Pt states that she feels very dizzy and fatigue all the time. eye pressure1 pt c/o bilateral eye pressure chronically and she saw posting specialist who did some lab work and mentioned to her about possible grave disease. her TSH was ok but lab missed TSI. She told me the eye doctor did check lab to rule out grave disease. Pt denies any vision change iron deficiency1 Pt has rather s evere iron deficiency due to heavy period and fibroid. Pt has been using IUD for two months but not working and she continues to bleed almost daily for the past 30 days Pt feels fatigue. Pt denies any dizziness or sob or chest pain eye Pt c/o bilateral eye pressure with teary eyes several months Pt denies any eye pain or vision change .Pt uses OTC clear eyes oTC eye drop. pt denies any headache or itchy eyes. Pt also has chronic sinusitis .Pt saw ENT and she had negative environmental allergy testing. Pt denies any vision change Pt saw ophthalmology who recommended her to see oculoplastic specialist and her amanda is at end of july wbc1 Pt has borderlin e high wbc and high hct but her iron is very low Pt does have heavy period due to fibroid and she is seeing INCIDENT RESPONSE MANAGER who started her on IUD but has not helped her bleeding and she notices longer duration of bleeding monthly pt also feels some pelvic discomfort since IUD. Pt feels very tired. Pt denies any sob Pt feels mild dizzy sometimes . eye1 Pt c/o bilateral eye pressure with teary eyes and frequent subconjunctival hemorrhage for several months Pt denies any eye pain or vision change .Pt uses OTC clear eyes oTC eye drop. pt denies any headache or itchy eyes. Pt also has chronic sinusitis .Pt saw ENT and she had negative environmental allergy testing. Pt has not heard from ophthalmology yet. Pt has not done TSH and TSI yet. eye1 Pt c/o bilateral eye pressure with teary eyes and frequent subconjunctival hemorrhage for several months Pt denies any eye pain or vision change .Pt uses OTC clear eyes oTC eye drop. pt denies any headache or itchy eyes. Pt also has chronic sinusitis .Pt saw ENT today and she will have allergy testing soon. Pt is using flonase and she finished levofloxacin but her symptoms are not improving. sniusitis1 Pt c/o bilateral heavy feeling both eyes and also facial swelling and also pressure for several months. Pt denies any sore throat pt denies any sneezing .Pt denies any sinus congestion. Pt does have chronic sinus type of headache. Pt feels sinus feeling Pt denies any fever. Pt had sinus CT done which showed deviated septum, nasal turbinate hypertrophy, retention cyst and also thickening of the sinus physical Pt needs annual physical. Pt has heavy period Pt sees pharmacist in charge and she has fibroid. Pt does have heavy and persistent period. Pt is seeing INCIDENT RESPONSE MANAGER now. Pt c/o chronic fatigue and dizziness. Pt c/o bilateral heavy feeling both eyes and also facial swelling and also pressure. Pt denies any sore throat pt denies any sneezing .Pt denies any sinus congestion. Pt does have chronic sinus type of headache. Pt denies any GI bleeding Pt has chronic diarrhea. Pt is noncompliant with colonoscopy .Pt is anemic now. Pt denies ay other complaints HTN Pt states that u rologist told her to follow up in office due to HTN. Pt denies any chest pain or headache wbc Pt has mildly hi gh wbc Pt denies any fever, chill diarrhea1 Pt has chronic d iarrhea without blood. Pt has history of duodenal ulcer .Pt denies any abd pain. Pt denies any weight loss. Pt never did EGD and colonoscopy hep B Pt has hep B Pt saw INCIDENT RESPONSE MANAGER GI and she was given order for liver ultrasound and she has not done it. Pt denies any abd pain. Pt is not on any meds. renal stone1 Pt has obstructi ve right renal stone s/p lithotripsy and renal stone removal by urology. Pt denies any flank pain. Pt had right urethra stent placed and will undergo removal next week. Pt has normal UO hep B Pt has hepatitis B with large viral load. Pt denies any abd pain or jaundice. Pt has not seen hepatitis doctor for many years. GI Pt has chronic l oose stool without blood for several years. Pt has intermittent midepigastric pain for long time. Pt has history for duodenal ulcer and she had EGD over 10 years ago. Pt denies any weight loss. Pt denies any GERD, nausea, vomiting . pt denies any abd pain or postprandial pain or nausea. pt denies any early satiety. Pt denies any burning feeling around abd pt denies any dysphagia. Pt does have multiple mild food allergy. UTI1 Pt denies any ur inary symptoms .Pt has group B strep folate Pt has borderlin e low folate. Pt denies any fatigue WBC Pt has mildly hi gh WBC Pt denies any fever. Pt does have mild URI symptoms lately physical Pt needs annual physical pt has chronic hepatitis B. Pt has chronic urticaria and she c/o diffuse itchy hives all over body recurrently since 2019. Pt states that she took OTC anti-histamine for long time and she thought it was some type of steroid for almost one year and she just stopped it two months ago. pt gained some weight since 9 months ago and she gained 20 pounds. . t Pt states that she saw liver specialist 3 years ago and was told she is carrier .Pt has not taken any medication for 3 years. Pt has chronic loose stool without blood for several years. Pt has intermittent midepigastric pain for long time. Pt has history for duodenal ulcer and she had EGD over 10 years ago. Pt denies any weight loss, early satiety, nausea, vomiting, blood in stool, appetite loss, etc. 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
--- OUTSIDE RECORDS SUMMARY | 2024-06-16 07:33 | XMS_ITS | Encounter Summary ---
Author Organization [facility] Address [address] [place] [address] Phone Care Team Providers Care Last Trimmer Name Role Phone Balwinder Wylie Primary Care Provider [phone] Reason for Visit * Reason Comments Medication Refill Encounter Details Date Type Department Care Team (Late st Contact Info) Description 09/12/2022 Refill [facility] [address] [place] [address] Dann Georges MD [address] [place], [place] [id number] Medication Refill Social History Tobacco Use Types Packs/Day Years Used Date Smoking Tobacco: Never Smokeless Tobacco: Never Alcohol Use Standard Drinks/Week Comments Not Currently 0 (1 standard drink = 0.6 oz pur e alcohol) Comments Unknown Sex and Gender Information Value Date Recorded Sex Assigned at Not on file Legal Sex Female 2:35 PM CDT Gender Identity Not on file Sexual Orientation Not on file COVID-19 Exposure Response Date Recorded In the last 10 days, have yo u been in contact with someone who was confirmed or suspected to have Coronavirus/COVID-19? No / Unsure 09/11/2022 1:09 PM CDT documented as of this encounter Miscellaneous Notes * Telephone Encounter - Joann Bautista - 09/12/2022 3:43 PM CDT Please refill if appropriate. documented in this encounter Plan of Treatment Not on file documented as of this encounter Visit Diagnoses Not on filedocumented in this encounter Care Teams Last Trimmer Relationship Specialty Start Date End Date Balwinder Wylie [address] [place] [address] PCP - General Family Medicine 07/22/22 documented as of this encounter
--- OUTSIDE RECORDS SUMMARY | 2024-06-16 07:33 | XMS_ITS | Clinical Summary ---
Author Organization [facility] Address [address] [place] [address] Phone Care Team Providers Care Rolling Machine Tender Name Role Phone Balwinder Wylie Primary Care Provider Allergies Active Allergy Reactions Criticality Noted Date Comments Fentanyl Rash Medium 07/29/2022 Hydromorphone Rash Medium 07/29/2022 Iodine Unknown 07/22/2021 Morphine Rash Medium 07/29/2022 Shrimp Extract Other (see Comments) Low 08/26/2022 N/a Medications levonorgestrel (Mirena, 52 MG,) 20 MCG/DAY IUD Mirena 21 mcg/24 hours (8 yrs) 52 mg intrauterine device Take by intrauterine route. Active nebivolol (BYSTOLIC) 5 MG Tablet 3 Active K Phos Hickman-Sod Phos Di & Hickman (Phospha 250 Neutral) 155-852-130 MG Tablet TAKE 2 TABLETS (500MG) BY MOUTH 3 TIMES A DAY WITH MEALS 126 Tablet 1 3 Active Active Problems Problem Noted Date Diagnosed Date Vitamin D deficiency 09/11/2022 Meibomian gland dysfunction (MGD) of both eyes 0 08/31/2022 Overview (11/05/2022): Last Assessment & Plan: Moderate meibomian gland dysfunction (MGD) and marginal blepharitis. Plan for trial of doxycycline 50mg BID for 2 months. Possible side effects including photosensitivity and GI upset were discussed. They will return in 2 months. We have also prescribed Pataday due to allergic findings. Iron deficiency anemia secondary to blood loss ( chronic) 08/14/2022 Chemosis of conjunctiva of both eyes 07/31/2022 Overview (11/05/2022): Last Assessment & Plan: Bilateral chemosis, no known history of autoimmune conditions. Review of CT scans revealed no significant pathology with mild sinusitiis Plan for lab testing to assess for thyroid disease and inflammatory markers and we will start prednisolone 1% twice a day in both eyes. She will return in 4-6 weeks. Hepatitis B virus infection 09/30/2021 Immunizations Immunization Administration Dates Next Due TDAP Vaccine 09/05/2022 Family History Relation Name Status Comments Brother Mother Social History Tobacco Use Types Packs/Day Years Used Date Smoking Tobacco: Never Smokeless Tobacco: Never Tobacco Cessation:Counseling Given: Not Answered Alcohol Use Standard Drinks/Week Comments Not Currently 0 (1 standard drink = 0.6 oz pur e alcohol) Comments Unknown Sex and Gender Information Value Date Recorded Sex Assigned at Not on file Legal Sex Female 2:35 PM CDT Gender Identity Not on file Sexual Orientation Not on file Last Filed Vital Signs Vital Sign Reading Time Taken Comments Blood Pressure 126/90 09/11/2022 1:20 PM CDT Pulse 79 09/11/2022 1:20 PM CDT Temperature 36.8 C (98.2 F) 09/11/2022 1:20 PM CDT Respiratory Rate 18 09/11/2022 1:20 PM CDT Oxygen Saturation 98% 09/11/2022 1:20 PM CDT Inhaled Oxygen Concentration - - Weight 63 kg (139 lb) 09/11/2022 1:20 PM CDT Height 160 cm (5' 3 ) 09/11/2022 1:20 PM CDT Body Mass Index 24.62 09/11/2022 1:20 PM CDT Plan of Treatment Health Maintenance Due Date Last Done Comments Hepatitis C Virus (HCV) Screening 1979 Hepatitis B Immunization (1 of 3 - 19+ 3-dose series) 1998 Pap Smear 2000 Cervical Cancer Screening (CCS) 2009 HPV/Cotest 2009 Discussion re Starting/Frequ ency of Mammograms 2019 Influenza Immunization (#1) 2024 SARS-COV-2 Immunization (2023- season) 2024 Colonoscopy 2024 Colorectal Cancer Screening 2024 Respiratory Syncytial Virus (RSV) Immunization (Adult) (1 - 1-dose 75+ series) 2054 DTaP/Tdap/Td Immunization Discontinued 09/05/2022 Meningococcal Immunization (ACWY) Aged Out No longer eligible based on patient's age to complete this topic Pneumococcal Immunization Combined Aged Out No longer eligible b ased on patient's age to complete this topic Rotavirus Immunization Aged Out No lo nger eligible based on patient's age to complete this topic Insurance [facility] Care Teams Rolling Machine Tender Relationship Specialty Start Date End Date Balwinder Wylie [address] [place] [address] PCP - General Family Medicine 07/22/22
--- OUTSIDE RECORDS SUMMARY | 2024-06-16 07:33 | XMS_ITS | Clinical Summary ---
Author Organization [facility] Address [address] [place] [address] Care Team Providers Care Die Forger Name Role Phone Desi Alvarenga MD Primary Care Provider [phone] Social History Tobacco Use Types Packs/Day Years Used Date Smoking Tobacco: Never Assessed Comments Unknown Sex and Gender Information Value Date Recorded Sex Assigned at Not on file Legal Sex Female 10:44 AM CDT Gender Identity Not on file Sexual Orientation Not on file Plan of Treatment Health Maintenance Due Date Last Done Comments Cervical Cancer Screening Pa p Smear (Age 30 to 64) Every 3 Years 1979 Colorectal Cancer Screening Colonoscopy (10 Years) 1979 Annual Physical 1982 Hepatitis C 1997 Hepatitis B Vaccines (1 of 3 - 19+ 3-dose series) 1998 Cervical Cancer Screening Pa p with HPV Testing (Age 30 to 64) Every 5 Years 2009 Cervical Cancer Screening with HPV 2009 Mammogram Screening 2019 COVID-19 Vaccine (2023-2 5 season) 2024 Influenza Adult (#1) 2024 DTaP, Tdap and Td Vaccines ( 2 - Td or Tdap) 09/05/2032 09/05/2022 HPV Vaccines Aged Out No longer eligi ble based on patient's age to complete this topic Meningococcal B Vaccine Aged Out No l onger eligible based on patient's age to complete this topic Meningococcal Vaccine Aged Out No emir john eligible based on patient's age to complete this topic Pneumococcal Vaccine: Pediat rics (0 to 5 Years) and At-Risk Patients (6 to 64 Years) Aged Out No longer eligi ble based on patient's age to complete this topic RSV Immunizations Under 20 Months Aged Out No longer eligible based on patient's age to complete this topic Insurance [address] [place] [id number] Care Teams Die Forger Relationship Specialty Start Date End Date Desi Alvarenga MD [address] [place] [id number] PCP - General FAMILY PRACTICE 08/26/23
== END 2024-06-16 07:28 | disposition home or self-care (01) ==
LOC: CHSIMG 07:29
PROVIDERS: PCP Emergency Medicine; Visit Provider Obstetrics & Gynecology
DX: N94.6 Dysmenorrhea, unspecified (principal); D25.9 Leiomyoma of uterus, unspecified
CPT/HCPCS: 76830; 76856

== ENCOUNTER 2024-07-09 11:29 | Emergency (ER) | payer BC, SELFPAY ==
[2024-07-09 11:29] VITALS: BP 126/88; PULSE 64; RESP 16; TEMP 36.6; O2SAT 100
--- NOTE | 2024-07-09 11:33 | ED.FEMALEGU ---
HPI - Female Genitourinary General Chief complaint: Vaginal Bleeding Stated complaint: heavy vaginal bleeding Time Seen by Provider: 07/09/24 11:31 Source: patient Mode of arrival: ambulatory Limitations: no limitations History of Present Illness HPI Narrative: 44-year-old female with a history of left adrenal mass, kidney stones , chronic hepatitis B, uterine fibroids with enlarged uterus, status post removal of IUD on 07/04/2024 and is scheduled to get possible uterine ablation sometime this month. She presents to the ED with -- menorrhagia since 07/06/2023. Prior to that the patient has been having ongoing spotting. Currently the patient is passing blood clots. -- Patient complains of dizziness. MD elicited complaint: vaginal bleeding Pertinent past history: other ( Fibroid uterus) Onset (ago): month(s) ( bleeding for the past 1 month and this has increased since 07/06/2023) Severity: severe Vaginal bleeding: clots Exacerbating factors: none Relieving factors: none Associated symptoms: denies other symptoms and weakness Treatment prior to arrival: none Patient : No Related Data Allergies Allergy/AdvReac Type Severity Reaction Status Date / Time fentanyl AdvReac Unknown Other Verified 07/09/24 11:51 hydromorphone (From Dilaudid) AdvReac Unknown Other Verified 07/09/24 11:51 morphine AdvReac Unknown Other Verified 07/09/24 11:51 Review of Systems Review of Systems: All systems reviewed & are unremarkable except as noted in HPI and below Constitutional: Constitutional: Reports as per HPI and Reports no additional constitutional complaints Eyes: Eyes: Reports as per HPI and Reports no additional eye complaints ENT: Reports system reviewed and no additional complaints, except as documented and Reports as per HPI Cardiovascular: Cardiovascular: Reports as per HPI and Reports no additional cardiovascular complaints Respiratory: Respiratory: Reports as per HPI and Reports no additional respiratory complaints Gastrointestinal: Gastrointestinal: Reports as per HPI and Reports no additional gastrointestinal complaints Genitourinary: Genitourinary: Reports no additional female genitourinary complaints and Reports as per HPI Comments: heavy vaginal bleeding. She had been spotting for the past 1 month and started having heavy bleeding since 07/06/2023. Musculoskeletal: Musculoskeletal: Reports no additional musculoskeletal complaints and Reports as per HPI Integumentary/Breasts: Skin/Breast: Reports system reviewed and no additional complaints, except as docu and Reports as per HPI Neurologic: Reports system reviewed and no additional complaints, except as documented and Reports as per HPI Psychiatric: Psychiatric: Reports no additional psychiatric complaints and Reports as per HPI Endocrine: Endocrine: Reports no additional endocrine complaints and Reports as per HPI Hematologic/Lymphatic: Hematologic/Lymphatic: Reports no additional hematologic/lymphatic complaints and Reports as per HPI Comments: for heavy vaginal bleeding Allergic/Immunologic: Allergic/Immunologic: Reports no additional allergic/immunologic complaints and Reports as per HPI [facility] Past Medical History Medical History Encounter for IUD removal Adrenal mass (~2022) Polyp of gallbladder RUQ pain Elevated LFTs Chronic hepatitis B Hypertension Ureterolithiasis Sigmoid polyp Menometrorrhagia Gastritis Hydronephrosis, right Right ureteral calculus Hepatitis B Surgical History Surgical History History of lithotripsy History of ureter stent Family History Family History Sibling Hepatitis B Father Hypertension Social History Social History Smoking status: Never smoker Second hand tobacco smoke exposure: No Alcohol intake: never Substance use: never Substance use type: does not use Do You Feel Safe in your Home?: Yes Lack of Transportation: No Lack of Food: Never True Current Housing: I Have Housing Concerned About Future Housing: No Difficulty Paying Gas/Electric Bills: No Difficulty Paying for Meds: No Currently Unemployed: No Education: High School Diploma/GED Difficulty w/ Childcare or Family Care: No Living arrangements: with family Additional living arrangements comments: Occupation/Education: occupation Additional occupation/education comments: restaurant Gender identity (if verbalized by the patient): Female Sexual Orientation (if Verbalized by the Patient): Straight or Heterosexual Spiritual care concerns: No Exam Narrative: Heart rate of 64. Blood pressure 126/88. Const: General: no acute distress Orientation/consciousness: patient oriented x3 Limitations: no limitations HENMT: Head: normal to inspection Ears: external ears normal Face/Nose/Sinus: Normal external nose present Face and sinus: normal facial exam Mouth: Yes Normal oral and palatal mucosa present Throat: posterior oropharynx normal Eyes: Conjunctivae: conjunctivae normal Pupils: Equal, round and reactive pupils present EOM: EOMs intact bilaterally Direct Ophthalmoscopy: no photophobia Neck: Neck: normal visual inspection, no lymphadenopathy and no meningeal signs Chest: Chest palpation & inspection: normal inspection of the chest Resp: Effort & Inspection: normal respiratory effort Auscultation: clear to auscultation bilaterally Cardio: Rate: regular rate Rhythm: regular rhythm GI: GI Palp: Yes Soft to palpation Auscultation: normal bowel sounds Other: No tenderness/ rigidity /rebound. : General: Yes no CVA tenderness Back/Spine/Pelvis: Back: no CVA tenderness Skin: General skin exam: normal color Rashes: no rashes Wounds: no wounds Neuro: General: patient oriented x3, moves all extremities, no meningeal signs, no focal motor deficits and CN's II-XI intact bilaterally Cranial nerves: Yes Nystagmus not present Speech: normal speech Gait exam (Neuro): Normal gait present Extrem: General: normal to inspection and no clubbing, cyanosis or edema Psych: Appearance: grossly normal Mental Status: mental status grossly normal Affect: normal affect Attitude: cooperative Course Course Emergency Course: Menorrhagia secondary to fibroid uterus-- patient had a stable H&H. Give TXA 1 g IV piggyback. Advised to follow up with her primary care physician/GYNs Vital Signs Vital signs: Vital Signs Temperature 36.6 C 07/09/24 11:29 Pulse Rate 64 07/09/24 11:29 Respiratory Rate 16 07/09/24 11:29 Blood Pressure 126/88 07/09/24 11:29 Pulse Oximetry 100 07/09/24 11:29 Oxygen Delivery Room Air 07/09/24 11:29 Temperature 36.6 C 07/09/24 11:29 Pulse Rate 64 07/09/24 11:29 Respiratory Rate 16 07/09/24 11:29 Blood Pressure 126/88 07/09/24 11:29 Pulse Oximetry 100 07/09/24 11:29 Oxygen Delivery Room Air 07/09/24 11:29 MDM - Female Genitourinary MDM Narrative Medical decision making narrative: menorrhagia/fibroid uterus Differential Diagnosis Differential diagnosis: Likely vaginitis and dysmenorrhea Medical Records Attestation: I reviewed the patient's medical records. Lab Data Attestation: I reviewed the patient's lab results. 07/09/24 12:08 07/09/24 12:08 Labs: Lab Results 07/09/24 07/09/24 Range/Units 12:00 12:08 WBC 8.7 (4.8-10.8) K/mm3 RBC 4.45 (4.20-5.40) M/mm3 Hgb 13.5 (12.0-15.0) g/dL Hct 40.8 (35.0-49.0) % MCV 91.7 (78.0-102.0) fL MCH 30.3 (27.0-31.0) pg MCHC 33.1 (32-36) g/dL RDW 12.2 (11.6-14.4) % Plt Count 217 (150-420) K/mm3 MPV 10.5 (9.2-11.8) fl Immature Gran % (Auto) 0.1 H (0.0-0.0) % Neut % (Auto) 57.7 (50.0-70.0) % Lymph % (Auto) 31.0 (18.0-42.0) % Phelps % (Auto) 9.3 (2.0-11.0) % Eos % (Auto) 1.3 (1.0-6.0) % Baso % (Auto) 0.6 (0.0-1.0) % Lymph # (Auto) 2.70 (1.10-4.50) K/mm3 Phelps # (Auto) 0.81 (0.10-0.90) K/mm3 Eos # (Auto) 0.11 (0.02-0.50) K/mm3 Baso # (Auto) 0.05 (0.00-0.10) K/mm3 Abs Immat Gran (auto) 0.01 H (0.00-0.00) K/mm3 Absolute Neuts (auto) 5.02 (1.70-7.20) K/mm3 Absolute Nucleated RBC 0.00 (0.00-0.00) K/mm3 Nucleated RBC % 0.0 (0-0.0) % PT 10.5 (9.50-12.1) Seconds INR 0.9 APTT 30.2 (23.9-30.70) Sec Sodium 142 (136-145) mmol/L Potassium 4.6 (3.5-5.1) mmol/L Chloride 104 (98-108) mmol/L Carbon Dioxide 32 (21-32) mmol/L Anion Gap 6 (4-12) mmol/L BUN 12 (7-18) mg/dL Creatinine 0.58 (0.55-1.02) mg/dL Estim Creat Clear Calc 82 ml/min Estimated GFR > 60 (59 - ) Glucose 84 (70-99) mg/dL Calculated Osmolality 292 (285-295) mOsm/kg Lactic Acid 0.9 (0.4-2.0) mmol/L Calcium 8.9 (8.5-10.1) mg/dL Total Bilirubin 0.6 (0.00-1.00) mg/dL AST 17 (15-37) U/L ALT 31 (14-59) U/L Alkaline Phosphatase 93 (46-116) U/L Total Protein 7.3 (6.4-8.2) g/dL Albumin 4.0 (3.4-5.0) g/dL Urine Color Light yellow (Yellow) Urine Appearance Clear (Clear) Urine pH 8.0 (5.0-8.0) Ur Specific [place] 1.010 (1.010-1.020) Urine Protein 1+ H (Negative) Urine Glucose (UA) Negative (Negative) Urine Ketones Negative (Negative) Ur Blood (Man) 3+ H (Negative) Urine Nitrate Negative (Negative) Urine Bilirubin Negative (Negative) Urine Urobilinogen 0.2 (0.2-1.0) mg/dL Leukocyte Esterase Rfl Trace H (Negative) RHEA/UL Urine RBC 21-50 H (0-2) /hpf Urine WBC 0-3 (0-3) /hpf Ur Squamous Epith Cells Few (Few) /hpf Urine Bacteria Rare (None) /hpf Urine Test Negative Discharge Plan Discharge Clinical Impression: Fibroid uterus Qualifiers: Uterine leiomyoma location: unspecified location Qualified Code(s): D25.9 - Leiomyoma of uterus, unspecified Menorrhagia Qualifiers: Menorrhagia type: with irregular cycle Qualified Code(s): N92.1 - Excessive and frequent menstruation with irregular cycle Patient Disposition: Home, Self-Care Condition: Stable Instructions: Antibiotic Form, Uterine Fibroids (ED), Menorrhagia (ED) [facility] Prescriptions: No Action entecavir 0.5 mg tablet 0.5 mg PO DAILY Qty: 90 4RF Follow-up/Referrals: Maxwell Villarreal MD [Primary Care Provider] - Time of Disposition: 13:16
[2024-07-09 12:13] LABS: Basophils Absolute Auto 0.05 K/mm3 (0.00-0.10); Basophils Percent Auto 0.6 % (0.0-1.0); Eosinophils Absolute Auto 0.11 K/mm3 (0.02-0.50); Eosinophils Percent Auto 1.3 % (1.0-6.0); Hematocrit 40.8 % (35.0-49.0); Hemoglobin 13.5 g/dL (12.0-15.0); Immature Granulocyte Absolute 0.01 K/mm3 (0.00-0.00); Immature Granulocyte Percent A 0.1 % (0.0-0.0); Mean Corpuscular HGB Conc 33.1 g/dL (32-36); Mean Corpuscular Hemoglobin 30.3 pg (27.0-31.0); Mean Corpuscular Volume 91.7 fL (78.0-102.0); Mean Platelet Volume 10.5 fl (9.2-11.8); Monocytes Absolute Auto 0.81 K/mm3 (0.10-0.90); Monocytes Percent Auto 9.3 % (2.0-11.0); Neutrophils Absolute Auto 5.02 K/mm3 (1.70-7.20); Neutrophils Percent Auto 57.7 % (50.0-70.0); Platelet Count Result 217 K/mm3 (150-420); Red Blood Count 4.45 M/mm3 (4.20-5.40); Red Cell Distribution Width 12.2 % (11.6-14.4); White Blood Count 8.7 K/mm3 (4.8-10.8)
[2024-07-09] MEDS: TRANEXAMIC ACID 1,000MG/ISO100 1,000 MG/100 ML BAG 200 MG IVPB (12:14)
[2024-07-09 12:18] LABS: Pregnancy On Board Control Positive; Urine Pregnancy Test Negative
[2024-07-09 12:29] LABS: INR 0.9; Partial Thromboplastin Time 30.2 Sec (23.9-30.70); Prothrombin Time 10.5 Seconds (9.50-12.1)
[2024-07-09 12:31] LABS: Alanine Aminotransferase 31 U/L (14-59); Alkaline Phosphatase 93 U/L (46-116); Anion Gap 6 mmol/L (4-12); Aspartate Amino Transferase 17 U/L (15-37); Bilirubin,Total 0.6 mg/dL (0.00-1.00); Blood Urea Nitrogen 12 mg/dL (7-18); Calcium 8.9 mg/dL (8.5-10.1); Carbon Dioxide 32 mmol/L (21-32); Chloride 104 mmol/L (98-108); Estimated CRCL calculation 82 ml/min; Estimated Glomerular Filt Rate > 60; Glucose 84 mg/dL (70-99); Osmolality Calculated 292 mOsm/kg (285-295); Potassium 4.6 mmol/L (3.5-5.1); Sodium 142 mmol/L (136-145); Total Protein 7.3 g/dL (6.4-8.2)
[2024-07-09 12:34] LABS: Lactic Acid Reflex 0.9 mmol/L (0.4-2.0)
[2024-07-09 12:48] LABS: Add Urine Microscopic? YES; Appearance Urine Clear (Clear); Bilirubin Urine Negative (Negative); Blood Urine 3+ (Negative); Color Urine Light Yellow (Yellow); Glucose Urine UA Negative (Negative); Ketones Urine Negative (Negative); Leukocyte Esterase Ur Trace LEU/UL (Negative); Nitrate Urine Negative (Negative); Protein Urine 1+ (Negative); Urobilinogen Urine 0.2 mg/dL (0.2-1.0)
[2024-07-09 12:53] LABS: Bacteria Urine Rare /hpf; RBC Urine 21-50 /hpf (0-2); Squamous Epithelial Cell Urine Few /hpf (Few); WBC Urine 0-3 /hpf (0-3)
[2024-07-09 13:39] VITALS: BP 102/68; PULSE 62; RESP 18; TEMP 36.7; O2SAT 98
== END 2024-07-09 13:50 | disposition home or self-care (01) ==
PROVIDERS: Emergency Provider Internal Medicine Critical Care Medicine; PCP Obstetrics & Gynecology
DX: D25.9 Leiomyoma of uterus, unspecified (principal); N92.1 Excessive and frequent menstruation with irregular cycle; I10 Essential (primary) hypertension
CPT/HCPCS: 36415; 80053; 81001; 81025; 83605; 85025; 85610; 85730; 96365; 99284

== ENCOUNTER 2024-07-15 00:38 | Day surgery (SDC) | payer BC, SELFPAY ==
--- NOTE | 2024-07-13 11:03 | PC.NURSE ---
Report to the Outpatient Waiting Room, entrance under the green pavilion located off [facility], at time _12:30 PM on date _07/15/24 . Planned Procedure Time: _ 2:30 PM .? Time changes happen often and if your time is changed the preop area will call you the afternoon before. - You and your visitor will be asked to self-screen and do not enter if you have any COVID symptoms. Please call surgeon if you need to reschedule. - A mask is optional within the hospital at this time. Patients may have clear liquids (water, carbonated beverages, clear teas, apple juice) until 3 hours prior to surgery ( 11:30 AM) with a maximum of 20 ounces. - No food from midnight until time of surgery and no smoking, or chewing tobacco (or any form of nicotine). No chewing gum, candy or mints. Take only the following medications with a SIP of water on the morning of surgery: NONE DO NOT STOP ANY OF YOUR OTHER PRESCRIPTION MEDICATIONS PRIOR TO SURGERY EXCEPT THE FOLLOWING Hold all vitamins and supplements for 3 days per anesthesiologist. Medications to discontinue per physician NONE Please no make-up, nail danish, hairspray, perfume, deodorant, or body powder the day of surgery.? No jewelry (including any body piercings) or valuables the day of surgery, leave them at home.? Please take a shower or bath the night before, or the morning of, surgery with an antibacterial soap.? Wear comfortable, loose fitting clothing.? Children are encouraged to wear pajamas. - Jewelry must be removed prior to entering the operating room.? Rings and piercings that are not removed may be cut off. - The hospital will not accept responsibility for valuables.? - Please leave all valuables, including medications, at home the day of surgery. If you are going home after surgery, a licensed stake driver must drive you home.? - NO public transportation without another adult if you receive anesthesia. - We recommend that an adult stay with you for 24 hours following discharge. - We also recommend that you do not drive, make important decision, drink alcoholic beverages, or take any drugs that were not prescribed by your health care provider for at least 24 hours after your discharge time. Follow any additional instructions given to you from your surgeon. Telephone instructions given to _PATIENT and asked if any additional questions and then verbalized understanding. Patient advised to call surgeon office or pre surgery nurse liaison [phone] if any additional questions.
[2024-07-13 11:11] VITALS: BMI 21.9
--- NOTE | 2024-07-14 09:23 | WPDHPUPDATE1 ---
History and Physical Update Update Date/Time: 07/14/24 09:23 Assessment: 1. menorrhagia 2. fibroid uterus 3. desires sterilization Plan: 1. hysteroscopy 2. endometrial ablation 3. laparoscopic bilateral salpingectomies History and Physical has been reviewed, including an updated exam of the patient. There are NO changes in the patient's condition. Risks, benefits, and alternatives have been discussed and questions answered. Patient agrees to proceed with procedure.
[2024-07-15] VITALS (9 sets, daily range): BP systolic 110–134; BP diastolic 64–89; PULSE 63–105; RESP 14–18; TEMP 36.4–37.2; O2SAT 99–100
--- OUTSIDE RECORDS SUMMARY | 2024-07-15 00:41 | XMS_ITS | Data Portability ---
Author Organization [facility] Address [address] [place] [address] Care Team Providers Care Event Mgr Name Role Phone SY HOLLOWAY Primary Care Provider [phone] NALLELY PIERCE OTHER Assessment No assessment recorded. Plan of Treatment Reminders Order Date Submit Date Provider Last Modified By Organization Details Last Modified Time Details Appointments None recorded. Lab test, urine [email or web address] [facility] [address], [place], [address], 3 16:09:26 Referral None recorded. Procedures None recorded. Surgeries None recorded. Imaging None recorded. Medication Orders progesteron e micronized [address] [facility] #[id number], [address] [place], [address], 3 13:18:43 Patient TargetsNo targets recorded. Patient InstructionsNo instructions recorded. Reason for Referral None Reported. Results Created Date Observation Date Name Description Value Unit Range Abnormal Flag Note LastModifiedBy Organization Detail LastModifiedTime 03/20/2003/20/2022 CBC W/DIF F WBC 9.4 10'3/ uL 3.6-10 .2 Not Available [facility] (Lab) [address], [place], [address], 03/21/2022 03:03:15 03/20/20 22 03/20/2022 CBC W/DIF F RBC 4.31 10'6/ uL (based on docume nted legal sex) 4.10-5 .30 Not Available [facility] (Lab) [address], [place], [address], 03/21/2022 03:03:15 03/20/20 22 03/20/2022 CBC W/DIF F HGB 12.1 g/dL (based on docume nted legal sex) 11.9-1 5.8 Not Available [facility] (Lab) [address], [place], [address], 03/21/2022 03:03:15 03/20/20 22 03/20/2022 CBC W/DIF F HCT 38.4 % (based on docume nted legal sex) 37.4-4 8.3 Not Available [facility] (Lab) [address], [place], [address], 03/21/2022 03:03:15 03/20/20 22 03/20/2022 CBC W/DIF F MCV 89.1 fL 82.0-9 9.0 Not Available [facility] (Lab) [address], [place], [address], 03/21/2022 03:03:15 03/20/20 22 03/20/2022 CBC W/DIF F MCH 28.1 pg 27.0-3 3.0 Not Available [facility] (Lab) [address], [place], [address], 03/21/2022 03:03:15 03/20/20 22 03/20/2022 CBC W/DIF F MCHC 31.5 g/dL 32.0-3 6.0 low Not Available [facility] (Lab) [address], [place], [address], 03/21/2022 03:03:15 03/20/20 22 03/20/2022 CBC W/DIF F RDW 13.2 % 11.0-1 5.0 Not Available [facility] (Lab) [address], [place], [address], 03/21/2022 03:03:15 03/20/20 22 03/20/2022 CBC W/DIF F plt 302 10'3/ uL 150-45 0 Not Available [facility] (Lab) [address], [place], [address], 03/21/2022 03:03:15 03/20/20 22 03/20/2022 CBC W/DIF F MPV 10.8 fL 9.8-12 .7 Not Available [facility] (Lab) [address], [place], [address], 03/21/2022 03:03:15 03/20/20 22 03/20/2022 CBC W/DIF F NRBC's 0.0 % 0 Not Available [facility] (Lab) [address] [facility], [place], [address], 03/21/2022 03:03:15 03/20/20 22 03/20/2022 CBC W/DIF F absolute NRBCs 0.0 10'3/ uL 0 Not Available [facility] (Lab) [address] [facility], [place], [address], 03/21/2022 03:03:15 03/20/20 22 03/20/2022 CBC W/DIF F neutrophils 73.9 % 37.0-7 2.0 high Not Available [facility] (Lab) [address] [facility], [place], [address], 03/21/2022 03:03:15 03/20/20 22 03/20/2022 CBC W/DIF F lymphocytes 16.3 % 16.0-4 8.0 Not Available [facility] (Lab) [address] [facility], [place], [address], 03/21/2022 03:03:15 03/20/20 22 03/20/2022 CBC W/DIF F monocytes 8.8 % 4.0-14 .0 Not Available [facility] (Lab) [address] [facility], [place], [address], 03/21/2022 03:03:15 03/20/20 22 03/20/2022 CBC W/DIF F eosinophils 0.3 % 0.0-9. 0 Not Available [facility] (Lab) [address] [facility], [place], [address], 03/21/2022 03:03:15 03/20/20 22 03/20/2022 CBC W/DIF F basophils 0.4 % 0.0-2. 0 Not Available [facility] (Lab) [address] [facility], [place], [address], 03/21/2022 03:03:15 03/20/20 22 03/20/2022 CBC W/DIF F immature granulocytes 0.3 % no define d refere nce range Not Available [facility] (Lab) [address] [facility], [place], [address], 03/21/2022 03:03:15 03/20/20 22 03/20/2022 CBC W/DIF F absolute neutrophils 6.9 10'3/ uL 1.1-6. 0 high Not Available [facility] (Lab) [address] [facility], [place], [address], 03/21/2022 03:03:15 03/20/20 22 03/20/2022 CBC W/DIF F absolute lymphocytes 1.5 10'3/ uL 0.7-3. 4 Not Available [facility] (Lab) [address] [facility], [place], [address], 03/21/2022 03:03:15 03/20/20 22 03/20/2022 CBC W/DIF F absolute monocytes 0.8 10'3/ uL 0.3-1. 0 Not Available [facility] (Lab) [address] [place], [address], 03/21/2022 03:03:15 03/20/20 22 03/20/2022 CBC W/DIF F absolute eosinophils 0.0 10'3/ uL 0.0-0. 6 Not Available [facility] (Lab) [address] [facility], [place], [address], 03/21/2022 03:03:15 03/20/20 22 03/20/2022 CBC W/DIF F absolute basophils 0.0 10'3/ uL 0.0-0. 1 Not Available [facility] (Lab) [address] [facility], [place], [address], 03/21/2022 03:03:15 03/20/20 22 03/20/2022 CBC W/DIF [...] resul ts are expec yenny. Not Available [facility] (Lab) [address] [facility], [place], [address], 03/21/2022 03:03:15 03/20/20 22 03/20/2022 BHCG, QUANT [...] Weeks 8,099 - 58,17 6 Not Available [facility] (Lab) [address] , [place], [address], 03/21/2022 03:03:16 03/20/20 22 03/20/2022 HEATHER TIN / IRON / TRANS HEATHER N / TIBC iron 36 ug/dL 40-170 low Not Available [facility] (Lab) [address] , [place], [address], 03/21/2022 03:03:16 03/20/20 22 03/20/2022 HEATHER TIN / IRON / TRANS HEATHER N / TIBC transferrin 335 mg/dL 200-36 0 Not Available [facility] (Lab) [address], [place], [address], 03/21/2022 03:03:16 03/20/20 22 03/20/2022 HEATHER TIN / IRON / TRANS HEATHER N / TIBC ferritin 5.8 NG/mL 8.0-25 2.0 low Not Available [facility] (Lab) [address] , [place], [address], 03/21/2022 03:03:16 03/20/20 22 03/20/2022 HEATHER TIN / IRON / TRANS HEATHER N / TIBC TIBC 469 ug/dL 250-45 0 high Not Available [facility] (Lab) [address] , [place], [address], 03/21/2022 03:03:16 03/20/20 22 03/20/2022 HEATHER TIN / IRON / TRANS HEATHER N / TIBC iron saturation 8 % 20-[address] [facility] (Lab) [address] [facility], [place], [address], 03/21/2022 03:03:16 03/20/20 22 03/20/2022 CT/GC AND TRICH OMONA S VAGIN BHARGAVI (RRNA ), URINE chlamydia trachomatis, PCR Negati ve negati ve Not Available [facility] (Lab) [address] [facility], [place], [address], 03/21/2022 18:01:32 03/20/20 22 03/20/2022 CT/GC AND TRICH OMONA S VAGIN BHARGAVI (RRNA ), URINE neisseria gonorrhoeae, PCR Negati ve negati ve Not Available [facility] (Lab) [address] [facility], [place], [address], 03/21/2022 18:01:32 03/20/20 22 03/20/2022 CT/GC AND TRICH OMONA S VAGIN BHARGAVI (RRNA ), URINE trichomonas vaginalis ribosomal RNA (rrna) Negati ve negati ve Not Available [facility] (Lab) [address] [facility], [place], [address], 03/21/2022 18:01:32 03/20/20 22 03/20/2022 pregn han test, urine HCG negati ve Not Available [place] [address], [place], [address], 03/20/2022 11:23:54 05/19/19 23 05/19/2022 SURGI GIANCARLO [...] ed by Adriana [place] on Not Available [facility] (Lab) [address] [facility], [place], [address], 05/20/2022 14:10:40 05/19/19 23 05/19/2022 CT/GC AND TRICH OMONA S VAGIN BHARGAVI (RRNA ), URINE chlamydia trachomatis, PCR Negati ve negati ve Not Available [facility] (Lab) [address] [facility], [place], [address], 05/20/2022 14:47:15 05/19/19 23 05/19/2022 CT/GC AND TRICH OMONA S VAGIN BHARGAVI (RRNA ), URINE neisseria gonorrhoeae, PCR Negati ve negati ve Not Available [facility] (Lab) [address] [place], [address], 05/20/2022 14:47:15 0105/19/2022 CT/GC AND TRICH OMONA S VAGIN BHARGAVI (RRNA ), URINE trichomonas vaginalis ribosomal RNA (rrna) Negati ve negati ve Not Available [facility] (Lab) [address], [place], [address], 05/20/2022 14:47:15 05/19/19 23 05/19/2022 pregn han test, urine HCG negati ve Not Available [facility] [address], [place], [address], 05/19/2022 16:09:18 03/25/20 22 03/25/2022 US, pelvi s No observ ation record ed. [address], [place], [address], 03/25/2022 13:41:42 03/25/20 22 03/25/2022 US, trans vagin al No observ ation record ed. [email or web address], [place], [address], 03/25/2022 13:41:33 03/25/20 22 03/25/2022 US, pelvi s No observ ation record ed. [email or web address], [place], [address], 03/28/2022 15:25:49 Result Notes None recorded. 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 Procedures Surgical History Date Name Laterality Status Provider Name and Address Organization Details Recorded Time 05/19/19 23 Endometrial Biopsy completed Master Bowser MD [address], [place], [address], [facility] 05/19/2022 16:58:42 05/19/19 23 IUD Insertion completed Gabrielle Wiley [facility] 05/19/2022 16:51:08 Imaging Results Imaging Date Name Status LastModified by Organization Details LastModified Time 03/25/2022 US, pelvis completed [email or web address] [facility] [address], [place], [address], 03/25/2022 13:41:42 03/25/2022 US, transvaginal completed [email or web address] [facility] [address], [place], [address], 03/25/2022 13:41:33 03/25/2022 US, pelvis completed [email or web address], [place], [address], 03/28/2022 15:25:49 Procedure Notes None recorded. Medical [...] Updated DateTime 04/28/2022 157.48 cm 24.7 kg/m2 76160.97 g 147 mm[Hg] 95 mm[Hg] Gabrielle Wiley [facility] 2 16:14:36 Date Recorded Body height Body mass index (BMI) Body weight Systolic blood pressure Diastolic blood pressure Provider Name and Address Organization Details Last Updated DateTime 05/19/2022 157.48 cm 24.5 kg/m2 42790.38 g 144 mm[Hg] 95 mm[Hg] Gabrielle [facility] 3 15:42:06 Date Recorded Body height Body mass index (BMI) Body weight Systolic blood pressure Diastolic blood pressure Provider Name and Address Organization Details Last Updated DateTime 06/23/2022 157.48 cm 24.9 kg/m2 47145.56 g 138 mm[Hg] 92 mm[Hg] Gabrielle [facility] 3 11:35:28 Date Recorded Body height Body mass index (BMI) Body weight Systolic blood pressure Diastolic blood pressure Systolic blood pressure Diastolic blood pressure Systolic blood pressure Diastolic blood pressure Provider Name and Address Organization Details Last Updated DateTime 3 157.48 cm 24.9 kg/m2 90613.5 6 g 160 mm[Hg] 108 mm[Hg] 175 mm[Hg] 120 mm[Hg] 140 mm[Hg] 100 mm[Hg] Gabrielle [facility] 3 12:24:26 Social History Question Answer Notes LastModified by Organizat ion Details LastModified Time Tobacco Smoking Status Never Smoker Gabrielle Wiley [facility] 08/01/2022 11:50:37 What Is Your Level [...] SNOMED-CT Code Diagnosis ICD10 Code Diagnosis Note [id number] ABHAY Garcia [facility] [address] [address] 09/30/2021 14:39:18 09/30/2021 15:35:32 Gynecologic examination 14554125 Z01.419 Suggested Calcium with Vitamin D 1200-1500m g daily. Patient advised to get an annual flu shot in the fall and she could obtain at [facility] or [facility] care clinic. Also to obtain TDap vaccinatio [...] to this email. WWEPatient speak madarin, video nurse substance abuse was used for the appointmen t.Even with use of video nurse substance abuse , patient was unable to give a [...] hepatitis B infectionR TC for polyp removal [id number] Master Bowser MD [facility] [address],[place] [address] 10/21/2021 09:21:26 10/21/2021 10:40:33 Polyp of cervix 73863101 N84.1 this patient is a 41-year-ol d [...] has odor or itching. Will observe. Amenorrhea 77738044 N91. 2 [id number] ABHAY Garcia [facility] [address],[place] [address] 03/20/2022 09:46:44 03/20/2022 12:34:49 Abnormal uterine bleeding 2200793220 9100 N93.9 UPT (-)We agreed to update TVUS / labs / STI testingDis cussed various possible causes of AUB and need for further evalutionT VUS orderedRTC for MD consult following u/sED precaution s discussed Time spent in visit is a total of 30 mins with at least 50% of visit consisting of counseling and review of plan of care.Video nurse substance abuse used for appointmen t Menorrhagia 716886768 N9 2.0 Irregular periods 583357 07 N92.6 [id number] Lara Tejeda [facility] [address],[place] [address] 03/25/2022 10:08:18 03/25/2022 12:13:55 Irregular periods 21360798 N92.6 N93.9 [id number] Master Bowser MD [facility] [address],[place] [address] 04/14/2022 10:45:29 04/14/2022 20:49:26 [id number] Master Bowser MD [facility] [address],[place] [address] 04/28/2022 15:09:27 04/29/2022 14:20:39 Abnormal uterine bleeding 7454893602 9100 N93.9 this patient is a 42-year-ol [...] to Mirena IUD after endometria l biopsy. [id number] Master Bowser MD [facility] [address],[place] [address] 05/19/2022 15:34:06 05/19/2022 17:14:02 Screening procedure 55899658 Z13.9 Abnormal u terine bleeding 2408409366 9100 N93.9 endometria l biopsy was performed and the IUD was inserted for the treatment of her bleeding. [id number] Master Bowsre MD [facility] [address],[place] [address] 06/23/2022 11:02:49 06/24/2022 11:06:37 Contraception care management 082268369 Z30.9 This patient is a 42-year-ol d female presents for IUD check. She has no complaints . Examinatio n revealed a normally placed IUD. The vulva, vagina and cervix appear normal with the normally placed string. [id number] Master Bowser MD [facility] [address] [address] 08/01/2022 11:32:20 08/01/2022 13:34:58 Anemia 161396968 D64.9 Abnormal u terine bleeding 5547276478 9100 N93.9 this patient is a 42-year-ol d female presents for follow-up on abnormal uterine bleeding. We spent over 20 minutes face-to-fa ce. More than 50% was counseling . Reviewed ultrasound results per talked about myomectomy versus hysterecto my. We talked about her IUD and status that IUD. This is all done through nurse substance abuse . We ultimately agreed to continue the [...] ID Guarantor Name 04/14/2022 1 [place] [id number] Crystal Godoy [id number] 51 Crystal Godoy 04/28/2022 1 [place] [id number] Crystal Godoy [id number] 51 Migdaliakassie Godoy 05/19/2022 1 [place] [id number] Crystal Godoy [id number] 51 Crystal Godoy 06/23/2022 1 [place] [id number] Crystal Godoy [id number] 51 Migdaliatobinabby Jayne 08/01/2022 1 [place] [id number] Crystal Godoy [id number] 51 Kavonabby Godoy Notes Date Note Type Note Provider Name and Address Organization Details Recorded Time 04/28/2022 text/html this patient is a 42-year-old female who presents for follow-up on ultrasound. Patient has irregular bleeding that is prolonged and heavy. She has a thickened vascular endometrium. She has a uterine fibroid. It is small and inconsequential. We spent over 20 minutes [id number]. More than 50% was counseling. We talked about treatment for abnormal uterine bleeding. Talked about biopsy of the endometrium. We agreed to Mirena IUD after endometrial biopsy. Master Bowser MD [address], [place], [address], [facility] 04/28/2022 20:52:32 05/19/2022 text/html Patient presents for IUD insertion. and endometrial biopsy Master Bowser MD [address], [place], [address], [facility] 05/19/2022 17:02:00 06/23/2022 text/html This patient is a 42-year-old female presents for IUD check. She has no complaints. Examination revealed a normally placed IUD. The vulva, vagina and cervix appear normal with the normally placed string. Master Bowser MD [address], [place], [address], [facility] 06/23/2022 20:17:03 08/01/2022 text/html [place] - Abnormal BleedingReported bypatient.Notes:this patient is a 42-year-old female presents for follow-up on abnormal uterine bleeding. We spent over 20 minutes [id number]. More than 50% was counseling. Reviewed ultrasound results per talked about myomectomy versus hysterectomy. We talked about her IUD and status that IUD. This is all done through nurse substance abuse. We ultimately agreed to continue the IUD and add oral progesterone for 30 days. She will follow-up in 30 days. Master Bowser MD [address], [place], [address], [facility] 08/01/2022 13:33:34 OBGyn Episode Ob Episode Information Episode Created Date Number of Fetuses Patient Bloodtype Patient rh Status Prepregnancy Weight lbs Domestic Partner Domestic Partner Phone Father Name Epic Ambulatory Analyst Status 10/01/19 22 1 CLOSED Fetus Data First Name Last Name Admitted to NICU Weight (g) Sex Living Outcome Pediatric Complications Fetus ID Race Codes Race Delivery Type Full Term [id number] Vaginal Delivery John Calculation Initial John Date [...] Domestic Partner Domestic Partner Phone Father Name Epic Ambulatory Analyst Status 10/01/19 22 1 CLOSED Fetus Data First Name Last Name Admitted to NICU Weight (g) Sex Living Outcome Pediatric Complications Fetus ID Race Codes Race Delivery Type Full Term [id number] Vaginal Delivery John Calculation Initial John Date [...]
--- OUTSIDE RECORDS SUMMARY | 2024-07-15 00:41 | XMS_ITS | Clinical Summary ---
Author Organization [facility] Address [address] [place] [address] Care Team Providers Care Practice Billing Associate Name Role Phone No, Physician Primary Care Provider [phone] Allergies Active Allergy Reactions Criticality Noted Date [...] on file Legal Sex Female 3:27 PM [employer]PER[employer] Gender Identity Not on file Sexual Orientation Not on file Obstetrics History Plan of Treatment Health Maintenance Due Date Last Done Comments Breast Cancer Screening-Mammogram 1979 Cervical Cancer Screening 1979 Colon Cancer Screening-Colonoscopy 1979 Depression Screening 1979 Hepatitis C Screening 1979 Regular Well Visit/Exam 18-64 1997 Pneumococcal vaccine <65 (1 of 2 - PCV) 1998 Influenza Vaccine (#1) 2024 DTaP/Tdap/Td Vaccine (2 - Td or Tdap) 09/05/2032 09/05/2022 HPV Vaccines Aged Out No longer eligi ble based on patient's age to complete this topic [place] Care Teams Practice Billing Associate Relationship Specialty Start Date End Date No, Physician PCP - General 06/18/22
--- OUTSIDE RECORDS SUMMARY | 2024-07-15 00:41 | XMS_ITS | Referral Summary ---
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
--- OUTSIDE RECORDS SUMMARY | 2024-07-15 00:41 | XMS_ITS | Clinical Summary ---
Author Organization [facility] Address [address] [place] [address] Care Team Providers Care Facility Manager Name Role Phone Desi Alvarenga MD Primary Care Provider [phone] Social History Tobacco Use Types Packs/Day Years [...] age to complete this topic Insurance [employer] Care Teams Facility Manager Relationship Specialty Start Date End Date Desi Alvarenga MD [address] [place] [address] PCP - General FAMILY PRACTICE 08/26/23
--- OUTSIDE RECORDS SUMMARY | 2024-07-15 00:41 | XMS_ITS | Clinical Summary ---
Author Organization [facility] Address [address] [place] [address] Phone Care Team Providers Care Element Setter Name Role Phone Balwinder Wylie Primary Care Provider [phone] Allergies Active Allergy Reactions Criticality Noted Date Comments Fentanyl Rash Medium 07/29/2022 Hydromorphone Rash Medium 07/29/2022 Iodine Unknown 07/22/2021 Morphine Rash Medium 07/29/2022 Shrimp Extract Other (see Comments) Low 08/26/2022 N/a Medications levonorgestrel (Mirena, 52 MG,) 20 MCG/DAY IUD Mirena 21 mcg/24 hours (8 yrs) 52 mg intrauterine device Take by intrauterine route. Active nebivolol (BYSTOLIC) 5 MG Tablet 3 Active K Phos Niobrara-Sod Phos Di & Niobrara (Phospha 250 Neutral) 155-852-130 MG Tablet TAKE [...] Comments Hepatitis C Virus (HCV) Screening 1979 Mammogram 1979 Hepatitis B Immunization (1 of 3 [...] patient's age to complete this topic Insurance [facility] Care Teams Element Setter Relationship Specialty Start Date End Date Balwinder Wylie [address] [place] [address] PCP - General Family Medicine 07/22/22
--- OUTSIDE RECORDS SUMMARY | 2024-07-15 00:42 | XMS_ITS | Continuity of Care Document ---
Author Organization [facility] Address [address] [place] [address] Phone Care Team Providers Care Educational Technologist Name Role Phone Balwinder Wylie MD Unavailable [...] on Encounter PREV VISIT, EST, AGE 40-64 [facility], [address], [place], [place], [address], [place] tel:[phone] [facility] physical (chief complaint) Encounter for general adult medical exam w abnormal findingsAbnormal weight lossEsophagitisOthe r Los Angeles's syndromeEssential (primary) hypertensionIron deficiency anemiaMenorrhagia - 5 Dejan Mathews [address], [address], [place], [place], [address] , [place]. [phone] OFFICE/OUTPA TIENT VISIT, [facility], [address], [place], [place], [address], [place] tel:[phone] [facility] HTN (chief complaint) GERD1 (chief complaint) renal stone1 (chief complaint) adrenal mass1 (chief complaint) Disorder of adrenal gland, unspecifiedHydronep hrosis w/ kidney calculous obstructionEsophagi tisEssential (primary) hypertensionInconcl usive mammogram 3 Dejan Mathews [address], [address], [place], [place], [address] , [place]. [phone] OFFICE/OUTPA TIENT VISIT, EST [facility], [address], [place], [place], [address], [place] tel:[phone] [facility] HTN (chief complaint) period1 (chief complaint) LFT (chief complaint) low phos1 (chief complaint) Essential (primary) hypertensionHeadach eMenorrhagiaOther disorders of phosphorus metabolismLiver diseaseOcular pain of eyeIron deficiency 3 Dejan Britt. [address], [address], [place], [place], [address] , [place]. [phone] OFFICE/OUTPA TIENT VISIT, EST [facility], [address], [place], [place], [address], [place] tel:[phone] [facility] HTN (chief complaint) Essential (primary) hypertensionHeadach e September-0 3 Dejan Balwinder. [address], [address], [place], [place], [address] , [place]. tel:[phone] OFFICE/OUTPA TIENT VISIT, [facility], [address], [place], [place], [address], [place] tel:[phone] [facility] iron deficiency 1 (chief complaint) headache1 (chief complaint) eye issue1 (chief complaint) fatigue1 (chief complaint) Iron deficiencyEssential (primary) hypertensionHeadach eFatigueOcular pain of eye September-0 2 3 Wylie Balwinder. [address], [address], [place], [place], [address] , [place]. tel:[phone] OFFICE/OUTPA TIENT VISIT, [facility], [address], [place], [place], [address], [place] tel:[phone] [facility] HTN (chief complaint) iron deficiency 1 (chief complaint) eye pressure1 (chief complaint) Iron deficiencyMenorrhag iaEssential (primary) hypertensionOcular pain of eye Jul-2 3 Wylie Balwinder. [address], [place], [place], [address] , [place]. tel:[phone] OFFICE/OUTPA TIENT VISIT, [facility], [address], [place], [place], [address], [place] tel:[phone] [facility] iron deficiency 1 (chief complaint) MenorrhagiaIron deficiency Mar-1 - 3 Wylie Balwinder. [address], [place], [place], [address] , [place]. tel:[phone] OFFICE/OUTPA TIENT VISIT, [facility], [address], [place], [place], [address], [place] tel:[phone] [facility] eye (chief complaint) wbc1 (chief complaint) Iron deficiencyLeukocyto sisSecondary polycythemiaOcular pain of eye Jul-0 8 3 Dejan Balwinder. [address], [address], [place], [place], [address] , [place]. [phone] OFFICE/OUTPA TIENT VISIT, EST [facility], [address], [place], [place], [address], [place] tel:[phone] [facility] eye1 (chief complaint) Chronic sinusitisOcular pain of eye 3 Dejan Birtt. [address], [address], [place], [place], [address] , [place]. tel:[phone] OFFICE/OUTPA TIENT VISIT, EST [facility], [address], [place], [place], [address], [place] tel:[phone] [facility] eye1 (chief complaint) Conjunctival hemorrhage, left eyeChronic sinusitis 3 Dejan Britt. [address], [place], [place], [address] , [place]. tel:[phone] OFFICE/OUTPA TIENT VISIT, EST [facility], [address], [place], [place], [address], [place] tel:[phone] [facility] sniusitis1 (chief complaint) Chronic sinusitisHypertroph y of nasal turbinatesDeviated nasal septumOther polyp of sinus 3 Dejan Britt. [address], [place], [place], [address] , [place]. [phone] PREV VISIT, EST, AGE 40-64 [facility], [address], [place], [place], [address], [place] tel:[phone] [facility] physical (chief complaint) Encounter for general adult medical exam w abnormal findingsHepatitis BChronic sinusitisAnemiaEsse ntial (primary) hypertensionDiarrhe a 3 Dejan Britt. [address], [place], [place], [address] , [place]. [phone] OFFICE/OUTPA TIENT VISIT, EST [facility], [address], [place], [place], [address], [place] tel:[phone] [facility] Medicine diarrhea1 (chief complaint) hep B (chief complaint) renal stone1 (chief complaint) wbc (chief complaint) HTN (chief complaint) Folate deficiencyLeukocyto sisHepatitis BDiarrheaRenal stoneEssential (primary) hypertensionDisorde r of adrenal gland, unspecified 2 Dejan Britt. [address], [place], [place], [address] , [place]. tel:[phone] OFFICE/OUTPA TIENT VISIT, [facility], [address], [place], [place], [address], [place] tel:[phone] [facility] hep B (chief complaint) GI (chief complaint) WBC (chief complaint) folate (chief complaint) UTI1 (chief complaint) Hepatitis BUrticariaLeukocyto sisFolate deficiencyDiarrheaU rinary tract infectionAllergy to other foods 2 Dejan Mathews [address], [place], [place], [address] , [place]. tel:[phone] PREV VISIT, NEW, AGE 40-64 [facility], [address], [place], [place], [address], [place] tel:[phone] [facility] physical (chief complaint) Encounter for general adult medical exam w abnormal findingsUrticariaCh ronic duodenal ulcer without bleedingHepatitis BDiarrheaAbnormal weight gain 2 Dejan Mathews [address], [address], [place], [place], [address] , [place]. 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 [place], [place], [phone] Ordered: Referrals: Allopathic & Osteopathic Physicians : [...] Referral Referred To: Master Bowser MD, [address] [place], [place], [phone] Ordered: Referrals: Allopathic & Osteopathic Physicians : [...] Referred To: Carlos Manuel Harrell MD [address] [facility] [address]
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 Pt saw another SECURITIES SETTLEMENT PROCESSOR and she had pelvic ultrasound done which was benign Pt is not per patient from SECURITIES SETTLEMENT PROCESSOR HTN Pt has HTN Pt ta kes [...] time .Pt was evaluated by ophthalmology at [facility] recently and nothing was found. Pt [...] small fibroid Pt is seeing a new SECURITIES SETTLEMENT PROCESSOR doctor now and she is getting work up now Pt has IUD. Pt states that she was given some pill and her heavy bleeding resolved HTN Pt went to see h er SECURITIES SETTLEMENT PROCESSOR and her bp was around 180/100 at SECURITIES SETTLEMENT PROCESSOR office. pt denies any chest pain or headache Pt denies any vision change. Pt is here for BP check iron deficiency1 Pt has rather s evere iron deficiency. Pt bojorquez have very heavy and prolonged period. Pt has IUD in place by SECURITIES SETTLEMENT PROCESSOR but it did not help her slow down the bleeding Pt states that she has been bleeding slowly for 30 days Pt does have fibroid. Pt followed up with SECURITIES SETTLEMENT PROCESSOR recently and she was started on some type of hormone pills by SECURITIES SETTLEMENT PROCESSOR to try to stop bleeding but has not helped yet. Pt states that she feels very dizzy and fatigue all the time. eye pressure1 pt c/o bilateral eye pressure chronically and she saw onboarding specialist who did some lab work and [...] due to fibroid and she is seeing SECURITIES SETTLEMENT PROCESSOR who started her on IUD but has [...] physical. Pt has heavy period Pt sees chief hospital administrator and she has fibroid. Pt does have heavy and persistent period. Pt is seeing SECURITIES SETTLEMENT PROCESSOR now. Pt c/o chronic fatigue and dizziness. [...] B Pt has hep B Pt saw SECURITIES SETTLEMENT PROCESSOR GI and she was given order for [...] removal next week. Pt has normal UO UTI1 Pt denies any ur inary symptoms .Pt has group B strep folate Pt has borderlin e low folate. Pt denies any fatigue WBC Pt has mildly hi gh WBC Pt denies any fever. Pt does have mild URI symptoms lately hep B Pt has hepatitis B with [...] Pt does have multiple mild food allergy. 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
--- OUTSIDE RECORDS SUMMARY | 2024-07-15 00:42 | XMS_ITS | Encounter Summary ---
Author Organization [facility] Address [address] [place] [address] Phone Care Team Providers Care Nurses Superintendent Name Role Phone Balwinder Wylie Primary Care Provider [phone] Reason for Visit * Reason Comments Medication Refill Encounter Details Date Type Department Care Team (Late st Contact Info) Description 09/12/2022 Refill [facility] [address] [place] [address] Dann Georges MD [address] [place], [place] [id number] Medication Refill Social History Tobacco Use Types [...] on filedocumented in this encounter Care Teams Nurses Superintendent Relationship Specialty Start Date End Date Balwinder Wylie [address] [place] [address] PCP - General Family Medicine 07/22/22 documented as of this encounter
[2024-07-15] MEDS: LACTATED RINGERS 1,000 ML 30 ML IV CONT ×2 (12:00→14:46)
[2024-07-15] MEDS: ACETAMINOPHEN 500 MG TABLET 1000 MG PO (12:00)
[2024-07-15] MEDS: KETOROLAC 15 MG/ML VIAL (*BKC) IV PUSH (12:00)
--- NOTE | 2024-07-15 12:06 | WPDHPUPDATE1 ---
History and Physical Update Update Date/Time: 07/15/24 12:06 History and Physical has been reviewed, including an updated exam of the patient. There are NO changes in the patient's condition. Risks, benefits, and alternatives have been discussed and questions answered. Patient agrees to proceed with procedure.
--- NOTE | 2024-07-15 12:40 | P.PNAN_ITS ---
Anes - Initial Pre Proc Eval Procedure: Operation Date: 07/15/24 13:30 Proposed Procedures p Hysteroscopy, Dilation and Curettage, Clarisa Endometrial Ablation, - Maxwell Villarreal MD s Bilateral Laparoscopic Salpingectomy - Maxwell Villarreal MD Date/Time: 07/15/24 12:40 Surgeon: Maxwell Villarreal MD Pre Op Diagnosis: abn uterine bleeding, desires sterilization Patient Data Age: 44 Gender: F Height: 1.57 m Weight: 54.45 kg Allergies Allergy/AdvReac Type Severity Reaction Status Date / Time fentanyl AdvReac Unknown Other Verified 07/13/24 10:57 hydromorphone (From Dilaudid) AdvReac Unknown Other Verified 07/13/24 10:57 morphine AdvReac Unknown Other Verified 07/13/24 10:57 Home Medications ?Medication ?Instructions ?Recorded ?Confirmed ?Type entecavir 0.5 mg tablet 0.5 mg PO DAILY hbv #90 tabs 06/22/24 07/13/24 Rx progesterone micronized 200 mg 200 mg PO QHS #30 caps 07/11/24 07/13/24 Rx capsule (Prometrium) Patient hx anesthesia problems: none Family hx anesthesia problems: none Results Review: All pre-operative results and documents have been reviewed as part of the pre- operative evaluation. [facility] Past Medical History Medical History Encounter for IUD removal Adrenal mass (~2022) Polyp of gallbladder RUQ pain Elevated LFTs Chronic hepatitis B Hypertension Ureterolithiasis Sigmoid polyp Menometrorrhagia Gastritis Hydronephrosis, right Right ureteral calculus Hepatitis B Surgical History Surgical History History of lithotripsy History of ureter stent Family History Family History Sibling Hepatitis B Father Hypertension Social History Social History Smoking status: Never smoker Second hand tobacco smoke exposure: No Alcohol intake: never Substance use: never Substance use type: does not use Do You Feel Safe in your Home?: Yes Lack of Transportation: No Lack of Food: Never True Current Housing: I Have Housing Concerned About Future Housing: No Difficulty Paying Gas/Electric Bills: No Difficulty Paying for Meds: No Currently Unemployed: No Education: High School Diploma/GED Difficulty w/ Childcare or Family Care: No Living arrangements: with family Additional living arrangements comments: Occupation/Education: occupation Additional occupation/education comments: restaurant Gender identity (if verbalized by the patient): Female Sexual Orientation (if Verbalized by the Patient): Straight or Heterosexual Spiritual care concerns: No Anes - Eval Final PreProcedure Day of Procedure 07/15/24 12:40 Patient weight: normal Heart: regular rate and rhythm Lungs: clear to auscultation Airway: Mallampati scale class II Neurological: alert and oriented Last oral intake: >/= 8 hours ASA classification: III Emergent: no Anesthetic plan: proceed Anesthesia type and monitoring: general ETT and standard monitoring Results Review: All pre-operative results and documents have been reviewed as part of the pre- operative evaluation. Informed Consent: The patient's anesthetic plan and its attendant risks and benefits were discussed with the patient/family/POA. Questions were solicited and answers provided to the satisfaction of the patient/family/POA.
[2024-07-15 12:46] LABS: BEDSIDEPREGUCG Negative (Negative)
[2024-07-15] MEDS: ceFAZolin 2 GM/D5W 50 ML 2 GM/50 ML BAG IVPB (13:16)
--- NOTE | 2024-07-15 14:07 | W.PM.PROC2 ---
Procedure Note - Detailed Date of Procedure 07/15/24 Pre-op Diagnosis 1. Menometrorrhagia 2. Fibroid uterus 3. Undesired fertility Post-op Diagnosis Same Procedure Performed 1. Hysteroscopy with uterine curettings 2. Endometrial ablation 3. Laparoscopic bilateral salpingectomy Surgeon Maxwell Villarreal MD Anesthesia General Findings Hysteroscopy revealed no polyps or fibroids, mildly thickened endometrial cavity. Laparoscopic evaluation revealed enlarged uterus questionable left cul-de-sac endometriosis. Tubes and ovaries without abnormality. Description of Procedure Patient prepped draped in usual manner for this procedure. Cervical instruments were placed for uterine mobility throughout the case. Abdominal trocar sites were marked and placed under direct visualization. Using the Harmonic scalpel the mesial salpinx was cauterized and cut bilaterally and tubes removed without difficulty. Enlarged globular uterus was noted and the scarring in the left lower quadrant consistent with endometriosis. Cervix was then dilated to allow the hysteroscope to be placed which revealed findings as above. Uterine curettings were obtained. Clarisa instrument was placed and instrument was activated after cavity assessment. Evaluation after the instrument cycle had undertaken revealed good destruction throughout with no other abnormalities appreciated. Patient was sent to recovery room in stable condition. Estimated Blood Loss 10 Drains No Packing No Pathology Yes (1. Endometrial curettings 2. Bilateral fallopian tubes) Complications No immediate complications Condition Stable Disposition PACU [facility] Billing Surgery - Charge Forward: Surgery Billing
--- NOTE | 2024-07-15 16:29 | SUR.PHASEII ---
1629 pt ready for discharge, IV out and dressed. waiting on ride.
== END 2024-07-15 16:33 | disposition home or self-care (01) ==
PROVIDERS: Visit Provider Obstetrics & Gynecology
PROC: 0U5B8ZZ Destruction of Endometrium, Via Natural or Artificial Opening Endoscopic (ICD-10-PCS; CPT 58563; principal; 2024-07-15 13:30)
PROC: (CPT 49320; 2024-07-15 13:30)
DX: N92.1 Excessive and frequent menstruation with irregular cycle (principal); Z30.2 Encounter for sterilization; N71.1 Chronic inflammatory disease of uterus
CPT/HCPCS: 58563; 58661; 88302; 88305; A9270; J0690; J1885; J2250; J3010; J7120

== ENCOUNTER 2024-10-24 07:46 | Outpatient (CLI) | payer BC, SELFPAY ==
--- NOTE | ~2024-10-24 | MM_ITS ---
EXAMINATION: MM screening zeynep BI w sharri HISTORY: Screening TECHNIQUE: Craniocaudal and mediolateral oblique 3-D tomosynthesis images were obtained and synthetic 2-D images were generated. CAD analysis was submitted and interpreted. COMPARISON: 09/18/2021 BREAST PARENCHYMAL COMPOSITION: Dense: The breasts are extremely dense, which lowers the sensitivity of mammography. FINDINGS: There is a new focal asymmetry laterally in the left breast on CC view, posterior third. Th e right breast is stable without evidence for malignancy. IMPRESSION: 1. New focal left breast asymmetry laterally on CC view. 2. Additional mammographic views and possible breast ultrasound are recommended. BI-RADS Category 0: Incomplete: Needs additional imaging evaluation. Reviewed, dictated and finalized at location A. IMPRESSION: 1. New focal left breast asymmetry laterally on CC view. 2. Additional mammographic views and possible breast ultrasound are recommended . BI-RADS Category 0: Incomplete: Needs additional imaging evaluation.
--- OUTSIDE RECORDS SUMMARY | 2024-10-24 07:51 | XMS_ITS | Clinical Summary ---
Author Organization [facility] Address [address] [place] [address] Phone Care Team Providers Care Marketing Project Specialist Name Role Phone Balwinder Wylie Primary Care Provider [phone] Allergies Active Allergy Reactions Criticality Noted Date Comments Fentanyl Rash Medium 07/29/2022 Hydromorphone Rash Medium 07/29/2022 Iodine Unknown 07/22/2021 Morphine Rash Medium 07/29/2022 Shrimp Extract Other (see Comments) Low 08/26/2022 N/a Medications levonorgestrel (Mirena, 52 MG,) 20 MCG/DAY IUD Mirena 21 mcg/24 hours (8 yrs) 52 mg intrauterine device Take by intrauterine route. Active nebivolol (BYSTOLIC) 5 MG Tablet 3 Active K Phos Eaton-Sod Phos Di & Eaton (Phospha 250 Neutral) 155-852-130 MG Tablet TAKE [...] 1:20 PM CDT Height 160 cm (5' 3) 09/11/2022 1:20 PM CDT Body Mass Index 24.62 09/11/2022 1:20 PM CDT Plan of Treatment Health Maintenance Due Date Last Done Comments Hepatitis C Virus (HCV) Screening 1979 Mammogram 1979 Hepatitis B Immunization (1 of 3 - 19+ 3-dose series) 1998 Pap Smear 2000 Cervical Cancer Screening (CCS) 2009 HPV/Cotest 2009 Discussion re Starting/Frequ ency of Mammograms 2019 SARS-COV-2 Immunization ( season) 2024 Colonoscopy 2024 Colorectal Cancer Screening 2024 Influenza Immunization (Seas on Ended) 2025 Respiratory Syncytial Virus (RSV) Immunization (Adult) (1 - 1-dose 75+ series) 2054 DTaP/Tdap/Td Immunization Discontinued 09/05/2022 Human Papillomavirus (HPV) Immunization Aged Out No longer eligible b ased on patient's age to complete this topic Meningococcal Immunization (ACWY) Aged Out No longer eligible based on patient's age to complete this topic Pneumococcal Immunization Combined Aged Out No longer eligible based on patient's age to complete this topic Rotavirus Immunization Aged Out No lo nger eligible based on patient's age to complete this topic Insurance [facility] Care Teams Marketing Project Specialist Relationship Specialty Start Date End Date Balwinder Wylie [address] [place] [address] PCP - General Family Medicine 07/22/22
--- OUTSIDE RECORDS SUMMARY | 2024-10-24 07:51 | XMS_ITS | Clinical Summary ---
Author Organization [facility] Address [address] [place] [address] Care Team Providers Care Glove Operator Name Role Phone No, Physician Primary Care Provider [phone] Allergies Active Allergy Reactions Criticality Noted Date [...] on file Legal Sex Female 3:27 PM CHICK[employer] Gender Identity Not on file Sexual Orientation Not on file Obstetrics History Plan of Treatment Health Maintenance Due Date Last Done Comments Breast Cancer Screening-Mammogram 1979 Cervical Cancer Screening 1979 Colon Cancer Screening-Colonoscopy 1979 Depression Screening 1979 Hepatitis C Screening 1979 Regular Well Visit/Exam 18-64 1997 Pneumococcal vaccine <65 (1 of 2 - PCV) 1998 Influenza Vaccine (Season Ended) 2025 DTaP/Tdap/Td Vaccine (2 - Td or Tdap) 09/05/2032 09/05/2022 HPV Vaccines Aged Out No longer eligi ble based on patient's age to complete this topic [place] Care Teams Glove Operator Relationship Specialty Start Date End Date No, Physician PCP - General 06/18/22
--- OUTSIDE RECORDS SUMMARY | 2024-10-24 07:51 | XMS_ITS | Encounter Summary ---
Author Organization [facility] Address [address] [place] [address] Phone Care Team Providers Care Residential Construction Instructor Name Role Phone Balwinder Wylie Primary Care Provider [phone] Reason for Visit * Reason Comments Medication Refill Encounter Details Date Type Department Care Team (Late st Contact Info) Description 09/12/2022 Refill [facility] [address] [place] [address] Dann Georges MD [address] [place], [place] [id number] Medication Refill Social History Tobacco Use Types [...] on filedocumented in this encounter Care Teams Residential Construction Instructor Relationship Specialty Start Date End Date Balwinder Wylie [address] [place] [address] PCP - General Family Medicine 07/22/22 documented as of this encounter
--- OUTSIDE RECORDS SUMMARY | 2024-10-24 07:51 | XMS_ITS | Referral Summary ---
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
--- OUTSIDE RECORDS SUMMARY | 2024-10-24 07:51 | XMS_ITS | Data Portability ---
Author Organization [facility] Address [address] [place] [address] [place] [address] Care Team Providers Care Loading Rack Supervisor Name Role Phone SY HOLLOWAY Primary Care Provider [phone] NALLELY PIERCE OTHER Assessment No assessment recorded. Plan of Treatment Reminders Order Date Submit Date Provider Last Modified By Organization Details Last Modified Time Details Appointments None recorded. Lab test, urine [email or web address] [place] [address] [facility] [address], [address], [place], [address], 3 16:09:26 Referral None recorded. Procedures None recorded. Surgeries None recorded. Imaging None recorded. Medication Orders progesteron e micronized 200 mg capsule 2022 023 [facility] #[id number], [address] [place], [address], 3 13:18:43 Patient TargetsNo targets recorded. Patient InstructionsNo instructions recorded. Reason for Referral None Reported. Results Created Date Observation Date Name Description Value Unit Range Abnormal Flag Note LastModifiedBy Organization Detail LastModifiedTime 03/20/2003/20/2022 CBC W/DIF F WBC 9.4 10'3/ uL 3.6-10 .2 Not Available [facility] (Lab) [address], [place], [address], 03/21/2022 03:03:15 03/20/20 22 03/20/2022 CBC W/DIF F RBC 4.31 10'6/ uL (based on docume nted legal sex) 4.10-5 .30 Not Available [facility] (Lab) [address], [place], [address], 03/21/2022 03:03:15 03/20/20 22 03/20/2022 CBC W/DIF F HGB 12.1 g/dL (based on docume nted legal sex) 11.9-1 5.8 Not Available [facility] (Lab) [address], [place], [address], 03/21/2022 03:03:15 03/20/20 22 03/20/2022 CBC W/DIF F HCT 38.4 % (based on docume nted legal sex) 37.4-4 8.3 Not Available [facility] (Lab) [address], [place], [address], 03/21/2022 03:03:15 03/20/20 22 03/20/2022 CBC W/DIF F MCV 89.1 fL 82.0-9 9.0 Not Available [facility] (Lab) [address], [place], [address], 03/21/2022 03:03:15 03/20/20 22 03/20/2022 CBC W/DIF F MCH 28.1 pg 27.0-3 3.0 Not Available [facility] (Lab) [address], [place], [address], 03/21/2022 03:03:15 03/20/20 22 03/20/2022 CBC W/DIF F MCHC 31.5 g/dL 32.0-3 6.0 low Not Available [facility] (Lab) [address], [place], [address], 03/21/2022 03:03:15 03/20/20 22 03/20/2022 CBC W/DIF F RDW 13.2 % 11.0-1 5.0 Not Available [facility] (Lab) [address], [place], [address], 03/21/2022 03:03:15 03/20/20 22 03/20/2022 CBC W/DIF F plt 302 10'3/ uL 150-45 0 Not Available [facility] (Lab) [address], [place], [address], 03/21/2022 03:03:15 03/20/20 22 03/20/2022 CBC W/DIF F MPV 10.8 fL 9.8-12 .7 Not Available [facility] (Lab) [address], [place], [address], 03/21/2022 03:03:15 03/20/20 22 03/20/2022 CBC W/DIF F NRBC's 0.0 % 0 Not Available [facility] (Lab) [address] [facility], [place], [address], 03/21/2022 03:03:15 03/20/20 22 03/20/2022 CBC W/DIF F absolute NRBCs 0.0 10'3/ uL 0 Not Available [facility] (Lab) [address] [facility], [place], [address], 03/21/2022 03:03:15 03/20/20 22 03/20/2022 CBC W/DIF F neutrophils 73.9 % 37.0-7 2.0 high Not Available [facility] (Lab) [address] [facility], [place], [address], 03/21/2022 03:03:15 03/20/20 22 03/20/2022 CBC W/DIF F lymphocytes 16.3 % 16.0-4 8.0 Not Available [facility] (Lab) [address] [facility], [place], [address], 03/21/2022 03:03:15 03/20/20 22 03/20/2022 CBC W/DIF F monocytes 8.8 % 4.0-14 .0 Not Available [facility] (Lab) [address] [facility], [place], [address], 03/21/2022 03:03:15 03/20/20 22 03/20/2022 CBC W/DIF F eosinophils 0.3 % 0.0-9. 0 Not Available [facility] (Lab) [address] [facility], [place], [address], 03/21/2022 03:03:15 03/20/20 22 03/20/2022 CBC W/DIF F basophils 0.4 % 0.0-2. 0 Not Available [facility] (Lab) [address] [facility], [place], [address], 03/21/2022 03:03:15 03/20/20 22 03/20/2022 CBC W/DIF F immature granulocytes 0.3 % no define d refere nce range Not Available [facility] (Lab) [address] [facility], [place], [address], 03/21/2022 03:03:15 03/20/20 22 03/20/2022 CBC W/DIF F absolute neutrophils 6.9 10'3/ uL 1.1-6. 0 high Not Available [facility] (Lab) [address] [facility], [place], [address], 03/21/2022 03:03:15 03/20/20 22 03/20/2022 CBC W/DIF F absolute lymphocytes 1.5 10'3/ uL 0.7-3. 4 Not Available [facility] (Lab) [address] [facility], [place], [address], 03/21/2022 03:03:15 03/20/20 22 03/20/2022 CBC W/DIF F absolute monocytes 0.8 10'3/ uL 0.3-1. 0 Not Available [facility] (Lab) [address] [place], [address], 03/21/2022 03:03:15 03/20/20 22 03/20/2022 CBC W/DIF F absolute eosinophils 0.0 10'3/ uL 0.0-0. 6 Not Available [facility] (Lab) [address] [facility], [place], [address], 03/21/2022 03:03:15 03/20/20 22 03/20/2022 CBC W/DIF F absolute basophils 0.0 10'3/ uL 0.0-0. 1 Not Available [facility] (Lab) [address] [facility], [place], [address], 03/21/2022 03:03:15 03/20/20 22 03/20/2022 CBC W/DIF [...] resul ts are expec yenny. Not Available [facility] (Lab) [address] [facility], [place], [address], 03/21/2022 03:03:15 03/20/20 22 03/20/2022 BHCG, QUANT [...] Weeks 8,099 - 58,17 6 Not Available [facility] (Lab) [address] , [place], [address], 03/21/2022 03:03:16 03/20/20 22 03/20/2022 HEATHER TIN / IRON / TRANS HEATHER N / TIBC iron 36 ug/dL 40-170 low Not Available [facility] (Lab) [address] , [place], [address], 03/21/2022 03:03:16 03/20/20 22 03/20/2022 HEATHER TIN / IRON / TRANS HEATHER N / TIBC transferrin 335 mg/dL 200-36 0 Not Available [facility] (Lab) [address], [place], [address], 03/21/2022 03:03:16 03/20/20 22 03/20/2022 HEATHER TIN / IRON / TRANS HEATHER N / TIBC ferritin 5.8 NG/mL 8.0-25 2.0 low Not Available [facility] (Lab) [address] , [place], [address], 03/21/2022 03:03:16 03/20/20 22 03/20/2022 HEATHER TIN / IRON / TRANS HEATHER N / TIBC TIBC 469 ug/dL 250-45 0 high Not Available [facility] (Lab) [address] , [place], [address], 03/21/2022 03:03:16 03/20/20 22 03/20/2022 HEATHER TIN / IRON / TRANS HEATHER N / TIBC iron saturation 8 % 20-55 low Not Available [facility] (Lab) [address] [facility], [place], [address], 03/21/2022 03:03:16 03/20/20 22 03/20/2022 CT/GC AND TRICH OMONA S VAGIN BHARGAVI (RRNA ), URINE chlamydia trachomatis, PCR Negati ve negati ve Not Available [facility] (Lab) [address] [facility], [place], [address], 03/21/2022 18:01:32 03/20/20 22 03/20/2022 CT/GC AND TRICH OMONA S VAGIN BHARGAVI (RRNA ), URINE neisseria gonorrhoeae, PCR Negati ve negati ve Not Available [facility] (Lab) [address] [facility], [place], [address], 03/21/2022 18:01:32 03/20/20 22 03/20/2022 CT/GC AND TRICH OMONA S VAGIN BHARGAVI (RRNA ), URINE trichomonas vaginalis ribosomal RNA (rrna) Negati ve negati ve Not Available [facility] (Lab) [address] [facility], [place], [address], 03/21/2022 18:01:32 03/20/20 22 03/20/2022 pregn han test, urine HCG negati ve Not Available [place] [address], [place], [address], 03/20/2022 11:23:54 05/19/19 23 05/19/2022 SURGI GIANCARLO [...] patie nt's name, ean rogers cs and EMB. Recei konrad in forma shirin is a 2.0 x 1.8 x 0.[address] [place] tissu e. The entir e speci men is submi tted in one casse tte. Gross ed by Adriana Allen on Not Available [facility] (Lab) [address] [facility], [place], [address], 05/20/2022 14:10:40 05/19/19 23 05/19/2022 CT/GC AND TRICH OMONA S VAGIN BHARGAVI (RRNA ), URINE chlamydia trachomatis, PCR Negati ve negati ve Not Available [facility] (Lab) [address] [facility], [place], [address], 05/20/2022 14:47:15 05/19/19 23 05/19/2022 CT/GC AND TRICH OMONA S VAGIN BHARGAVI (RRNA ), URINE neisseria gonorrhoeae, PCR Negati ve negati ve Not Available [facility] (Lab) [address] [place], [address], 05/20/2022 14:47:15 0105/19/2022 CT/GC AND TRICH OMONA S VAGIN BHARGAVI (RRNA ), URINE trichomonas vaginalis ribosomal RNA (rrna) Negati ve negati ve Not Available [facility] (Lab) [address], [place], [address], 05/20/2022 14:47:15 05/19/19 23 05/19/2022 pregn han test, urine HCG negati ve Not Available [place] [address], [place], [address], 05/19/2022 16:09:18 03/25/20 22 03/25/2022 US, pelvi s No observ ation record ed. [address], [place], [address], 03/25/2022 13:41:42 03/25/20 22 03/25/2022 US, trans vagin al No observ ation record ed. [email or web address], [place], [address], 03/25/2022 13:41:33 03/25/20 22 03/25/2022 US, pelvi s No observ ation record ed. [email or web address] [address], [place], [address], 03/28/2022 15:25:49 Result Notes None recorded. 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 Procedures Surgical History Date Name Laterality Status Provider Name and Address Organization Details Recorded Time 05/19/19 23 Endometrial Biopsy completed Master Bowser MD [address], [place], [address], [facility] 05/19/2022 16:58:42 05/19/19 23 IUD Insertion completed Gabrielle [facility] 05/19/2022 16:51:08 Imaging Results None recorded. Procedure Notes None recorded. Medical Equipment None [...] Updated DateTime 05/19/2022 157.48 cm 24.5 kg/m2 75122.38 g 144 mm[Hg] 95 mm[Hg] [facility] 3 15:42:06 Date Recorded Body height Body mass index (BMI) Body weight Systolic blood pressure Diastolic blood pressure Provider Name and Address Organization Details Last Updated DateTime 06/23/2022 157.48 cm 24.9 kg/m2 92210.56 g 138 mm[Hg] 92 mm[Hg] [facility] 3 11:35:28 Date Recorded Body height Body mass index (BMI) Body weight Systolic blood pressure Diastolic blood pressure Systolic blood pressure Diastolic blood pressure Systolic blood pressure Diastolic blood pressure Provider Name and Address Organization Details Last Updated DateTime 3 157.48 cm 24.9 kg/m2 29228.5 6 g 160 mm[Hg] 108 mm[Hg] 175 mm[Hg] 120 mm[Hg] 140 mm[Hg] 100 mm[Hg] Gabrielle Wiley [facility] 3 12:24:26 Date Recorded Body height Body mass index (BMI) Body weight Systolic blood pressure Diastolic blood pressure Provider Name and Address Organization Details Last Updated DateTime 04/28/2022 157.48 cm 24.7 kg/m2 84653.97 g 147 mm[Hg] 95 mm[Hg] Gabrielle Wiley [facility] 2 16:14:36 Social History Question Answer Notes LastModified by Organizat ion Details LastModified Time Tobacco Smoking Status Never Smoker Gabrielle Wiley [facility] 08/01/2022 11:50:37 Are You Blind Or Do You Have [...] IV Drugs? No Information not available 08/01/2022 Do You Have Difficulty Walking Or Climbing Stairs? No Information not available 08/01/2022 Sex: Unknown Functional Status Question Answer Note LastModified by Organizat ion Details LastModified Time Do you use any illicit or recreational drugs? No Information not available 08/01/2022 What is your level of alcohol consumption? Occasional Information not available 08/01/2022 Are you able to walk? YESWOREST Information not available 09/30/2021 Are you able to care for yourself? Yes Information n ot available 08/01/2022 Do you have difficulty dressing [...] SNOMED-CT Code Diagnosis ICD10 Code Diagnosis Note [id number] Echo DelgadoABHAY [place] [address] [address] 09/30/2021 14:39:18 09/30/2021 15:35:32 Gynecologic examination 14012587 Z01.419 Suggested Calcium with Vitamin D 1200-1500m g daily. Patient advised to get an annual flu shot in the fall and she could obtain at [facility] or [facility] clinic. Also to obtain TDap vaccinatio n [...] to this email. WWEPatient speak madarin, video cvt tech was used for the appointmen t.Even with use of video cvt tech , patient was unable to give a [...] hepatitis B infectionR TC for polyp removal [id number] Master Bowser MD [place] [address],[place] [address] 10/21/2021 09:21:26 10/21/2021 10:40:33 Polyp of cervix 66434573 N84.1 this patient is a 41-year-ol d [...] has odor or itching. Will observe. Amenorrhea 36926221 N91. 2 [id number] ABHAY Garcia [place] [address],[place] [address] 03/20/2022 09:46:44 03/20/2022 12:34:49 Abnormal uterine bleeding 6636938954 9100 N93.9 UPT (-)We agreed to update TVUS / labs / STI testingDis cussed various possible causes of AUB and need for further evalutionT VUS orderedRTC for MD consult following u/sED precaution s discussed Time spent in visit is a total of 30 mins with at least 50% of visit consisting of counseling and review of plan of care.Video cvt tech used for appointmen t Menorrhagia 739488620 N9 2.0 Irregular periods 252123 07 N92.6 [id number] Master Bowser MD [place] [address],[place] [address] 03/25/2022 10:08:18 03/25/2022 12:13:55 Irregular periods 67616972 N92.6 N93.9 [id number] Master Bowser MD [place] [address],[place] [address] 04/14/2022 10:45:29 04/14/2022 20:49:26 [id number] Master Bowser MD [place] [address],[place] [address] 04/28/2022 15:09:27 04/29/2022 14:20:39 Abnormal uterine bleeding 3289566904 9100 N93.9 this patient is a 42-year-ol [...] to Mirena IUD after endometria l biopsy. [id number] Master Bowser MD [place] [address],[facility] [place] [address] 05/19/2022 15:34:06 05/19/2022 17:14:02 Screening procedure 94600805 Z13.9 Abnormal u terine bleeding 5374406818 9100 N93.9 endometria l biopsy was performed and the IUD was inserted for the treatment of her bleeding. [id number] Master Bowser MD [place] [address],[place] [address] 06/23/2022 11:02:49 06/24/2022 11:06:37 Contraception care management 746321442 Z30.9 This patient is a 42-year-ol d female presents for IUD check. She has no complaints . Examinatio n revealed a normally placed IUD. The vulva, vagina and cervix appear normal with the normally placed string. [id number] Master Bowser MD [place] [address],[place] [address] 08/01/2022 11:32:20 08/01/2022 13:34:58 Anemia 182484946 D64.9 Abnormal u terine bleeding 0136471490 9100 N93.9 this patient is a 42-year-ol d female presents for follow-up on abnormal uterine bleeding. We spent over 20 minutes face-to-fa ce. More than 50% was counseling . Reviewed ultrasound results per talked about myomectomy versus hysterecto my. We talked about her IUD and status that IUD. This is all done through cvt tech . We ultimately agreed to continue the IUD and add oral progestero ne for 30 days. She will follow-up in 30 days. Health Concerns Section Related Observation LastModified by Organization Detai ls LastModified Time None Recorded Concern Status LastModified by Organization Details LastModified Time None Recorded Advance Directives Directive None Recorded Payers Insurance Date Sequence Insurance Name Policy Number Policy Salvador Covered Member ID Salvador Member ID Guarantor Name 08/22/2022 1 [place] [id number] Crystal Godoy [id number] Crystal Godoy Notes Date Note Type Note Provider Name and Address Organization Details Recorded Time 04/28/2022 text/html this patient is a 42-year-old female who presents for follow-up on ultrasound. Patient has irregular bleeding that is prolonged and heavy. She has a thickened vascular endometrium. She has a uterine fibroid. It is small and inconsequential. We spent over 20 minutes hwoh-vw-ahot. More than 50% was counseling. We talked about treatment for abnormal uterine bleeding. Talked about biopsy of the endometrium. We agreed to Mirena IUD after endometrial biopsy. Master Bowser MD [address], [place], [address], [facility] 04/28/2022 20:52:32 05/19/2022 text/html Patient presents for IUD insertion. and endometrial biopsy Master Bowser MD [address], [place], [address], [facility] 05/19/2022 17:02:00 06/23/2022 text/html This patient is a 42-year-old female presents for IUD check. She has no complaints. Examination revealed a normally placed IUD. The vulva, vagina and cervix appear normal with the normally placed string. Master Bowser MD [address], [place], [address], [facility] 06/23/2022 20:17:03 08/01/2022 text/html Mague - Abnormal BleedingReported bypatient.Notes:this patient is a 42-year-old female presents for follow-up on abnormal uterine bleeding. We spent over 20 minutes yqhf-wy-[id number]. More than 50% was counseling. Reviewed ultrasound results per talked about myomectomy versus hysterectomy. We talked about her IUD and status that IUD. This is all done through cvt tech. We ultimately agreed to continue the IUD and add oral progesterone for 30 days. She will follow-up in 30 days. Master Bowser MD [address], [place], [address], [place] [facility] 08/01/2022 13:33:34 OBGyn Episode Ob Episode Information Episode Created Date Number of Fetuses Patient Bloodtype Patient rh Status Prepregnancy Weight lbs Domestic Partner Domestic Partner Phone Father Name Touch Up Painter Hand Status 10/01/19 22 1 CLOSED Fetus Data First Name Last Name Admitted to NICU Weight (g) Sex Living Outcome Pediatric Complications Fetus ID Race Codes Race Delivery Type Full Term [id number] Vaginal Delivery John Calculation Initial John Date [...] Domestic Partner Domestic Partner Phone Father Name Touch Up Painter Hand Status 10/01/19 22 1 CLOSED Fetus Data First Name Last Name Admitted to NICU Weight (g) Sex Living Outcome Pediatric Complications Fetus ID Race Codes Race Delivery Type Full Term [id number] Vaginal Delivery John Calculation Initial John Date [...]
== END 2024-10-24 07:47 | disposition home or self-care (01) ==
PROVIDERS: PCP Emergency Medicine; Visit Provider Emergency Medicine
DX: Z12.31 Encounter for screening mammogram for malignant neoplasm of breast (principal); R92.8 Other abnormal and inconclusive findings on diagnostic imaging of breast
CPT/HCPCS: 77063; 77067

== ENCOUNTER 2024-11-17 08:01 | Outpatient (CLI) | payer BC, SELFPAY ==
--- NOTE | ~2024-11-17 | MM_ITS ---
EXAMINATION: MM diagnostic zeynep LT w sharri HISTORY: Left breast asymmetry TECHNIQUE: Additional 3-D tomosynthesis images of the left breast were performed and synthetic 2-D im ages were generated. CAD analysis was submitted and interpreted. COMPARISON: 10/24/2024 BREAST PARENCHYMAL COMPOSITION:Dense: The breasts are extremely dense, which lowers the sensitivity o f mammography. FINDINGS: Left breast asymmetry effaces with spot compression. No persistent mass lesion or distortio n. No suspicious microcalcifications. IMPRESSION: No mammographic evidence for malignancy. BI-RADS Category 1: Negative Reviewed, dictated and finalized at location M.
== END 2024-11-17 08:02 | disposition home or self-care (01) ==
LOC: MICIMG 08:01
PROVIDERS: PCP Emergency Medicine; Visit Provider Emergency Medicine
DX: N64.89 Other specified disorders of breast (principal); N63.20 Unspecified lump in the left breast, unspecified quadrant
CPT/HCPCS: 77061; 77065; G0279

== ENCOUNTER 2024-12-26 07:48 | Outpatient (CLI) | payer BC, SELFPAY ==
--- NOTE | ~2024-12-26 | US_ITS ---
Limited Abdominal Sonogram: Real-time sonographic imaging of the right upper quadrant was performed. Clinical History: Chronic hepatitis B Findings: The liver appears normal with no evidence of mass lesion or bile duct dilatation. Main por manuel vein demonstrates normal direction of flow. The gallbladder is well distended, and appears normal with no evidence of gallstone or wall thickening. The common bile duct measures 2 mm. The visualize d pancreas, aorta, and IVC are unremarkable. Impression: No significant abnormality seen. Reviewed, dictated and finalized at location . Impression: No significant abnormality seen.
--- OUTSIDE RECORDS SUMMARY | 2024-12-26 07:55 | XMS_ITS | Clinical Summary ---
Author Organization [facility] Address [address] [place] [address] Care Team Providers Care Ecclesiastical Worker Name Role Phone No, Physician Primary Care Provider [phone] Allergies Active Allergy Reactions Criticality Noted Date [...] on file Legal Sex Female 3:27 PM GENERALIST Gender Identity Not on file Sexual Orientation Not on file Obstetrics History Plan of Treatment Health Maintenance Due Date Last Done Comments Breast Cancer Screening-Mammogram 1979 Cervical Cancer Screening 1979 Colon Cancer Screening-Colonoscopy 1979 Depression Screening 1979 Hepatitis C Screening 1979 Regular Well Visit/Exam 18-64 1997 Pneumococcal vaccine <65 (1 of 2 - PCV) 1998 HPV Vaccines (1 - 3-dose SCDM series) 2006 Influenza Vaccine (#1) 2025 DTaP/Tdap/Td Vaccine (2 - Td or Tdap) 09/05/2032 [place] Care Teams Ecclesiastical Worker Relationship Specialty Start Date End Date No, Physician PCP - General 06/18/22
--- OUTSIDE RECORDS SUMMARY | 2024-12-26 07:56 | XMS_ITS | Clinical Summary ---
Author Organization [facility] Address [address] [place] [address] Care Team Providers Care Exercise Manager Name Role Phone Desi Alvarenga MD Primary Care Provider [phone] Social History Tobacco Use Types Packs/Day Years [...] of 3 - 19+ 3-dose series) 1998 HPV Vaccines (1 - 3-dose SCD M series) 2006 Cervical Cancer Screening Pa p with HPV Testing (Age 30 to 64) Every 5 Years 2009 Cervical Cancer Screening with HPV 2009 Mammogram Screening 2019 COVID-19 Vaccine (2023-2 5 season) 2024 DTaP, Tdap and Td Vaccines ( 2 - Td or Tdap) 09/05/2032 09/05/2022 Meningococcal B Vaccine Aged Out No l onger eligible based on patient's age to complete this topic Meningococcal Vaccine Aged Out No emir john eligible based on patient's age to complete this topic Pneumococcal Vaccine: Pediat rics (0 to 5 Years) and At-Risk Patients (6 to 49 Years) Aged Out No longer eligi ble based on patient's age to complete this topic RSV Immunizations Under 20 Months Aged Out No longer eligible based on patient's age to complete this topic Insurance [employer] Care Teams Exercise Manager Relationship Specialty Start Date End Date Desi Alvarenag MD [address] [place] [id number] PCP - General FAMILY PRACTICE 08/26/23
--- OUTSIDE RECORDS SUMMARY | 2024-12-26 07:56 | XMS_ITS | Continuity of Care Document ---
Author Organization [facility] Address [address] [place] [address] Phone Care Team Providers Care Adding Machine Operator Name Role Phone Balwinder Wylie MD Unavailable Unavailable Allergies, Adverse Reactions, Alerts Substance Reaction Status Criticality iodine Active No Information Medications Medication Instructions Dosage Effective Dates (start - stop) Status Comments cetirizine 10 mg tablet take 1 tablet by oral route every day 10 MG - Active fluticasone propionate 50 mcg/actuation nasal spray,suspension inhale 2 spray by intranasal route every day in each nostril 100 MCG - Active Procedures Procedure Date OFFICE/OUTPATIENT VISIT, EST OFFICE/OUTPATIENT VISIT, EST PREV [...] PREV VISIT, NEW, AGE 40-64 OFFICE/OUTPATIENT VISIT, [facility] Advance Directives Directive Yes / No Effective Date File Name No Information Encounters Encounter Description Practice Location Reason(s) For Visit Diagnoses Date Provider Providers Copied on Encounter OFFICE/OUTPA TIENT VISIT, [facility], [address], [place], [place], [id number], tel:[phone] [facility] mammo (chief complaint) Lump in the left breast 5 Dejan Britt. [address], [address], [place], [place], [address] , [place]. tel:[phone] OFFICE/OUTPA TIENT VISIT, EST [facility], [address], [place], [place], [address], [place] tel:[phone] [facility] allergy1 (chief complaint) weight loss1 (chief complaint) HLP (chief complaint) Abnormal weight lossAllergic rhinitis due to pollenOther Stratham's syndromeMixed hyperlipidemia 5 Dejan Britt. [address], [address], [place], [place], [address] , [place]. tel:[phone] PREV VISIT, EST, AGE 40-64 [facility], [address], [place], [place], [address], [place] tel:[phone] [facility] physical (chief complaint) Encounter for general adult medical exam w abnormal findingsAbnormal weight lossEsophagitisOthe r Alyson's syndromeEssential (primary) hypertensionIron deficiency anemiaMenorrhagia 5 Dejan Britt. [address], [address], [place], [place], [address] , [place]. tel:[phone] OFFICE/OUTPA TIENT VISIT, EST [facility], [address], [place], [place], [address], [place] tel:[phone] [facility] HTN (chief complaint) GERD1 (chief complaint) renal stone1 (chief complaint) adrenal mass1 (chief complaint) Disorder of adrenal gland, unspecifiedHydronep hrosis w/ kidney calculous obstructionEsophagi tisEssential (primary) hypertensionInconcl usive mammogram 3 Dejan Britt. [address], [place], [place], [address] , [place]. tel:[phone] OFFICE/OUTPA TIENT VISIT, [facility], [address], [place], [place], [address], [place] tel:[phone] [facility] HTN (chief complaint) period1 (chief complaint) LFT (chief complaint) low phos1 (chief complaint) Essential (primary) hypertensionHeadach eMenorrhagiaOther disorders of phosphorus metabolismLiver diseaseOcular pain of eyeIron deficiency 3 Dejan Britt. [address], [place], [place], [address] , [place]. tel:[phone] OFFICE/OUTPA TIENT VISIT, [facility], [address], [place], [place], [address], [place] tel:[phone] [facility] HTN (chief complaint) Essential (primary) hypertensionHeadach e 3 Dejan Britt. [address], [place], [place], [address] , [place]. tel:[phone] OFFICE/OUTPA TIENT VISIT, [facility], [address], [place], [place], [address], [place] tel:[phone] [facility] iron deficiency 1 (chief complaint) headache1 (chief complaint) eye issue1 (chief complaint) fatigue1 (chief complaint) Iron deficiencyEssential (primary) hypertensionHeadach eFatigueOcular pain of eye 3 Dejan Britt. [address], [address], [place], [place], [address] , [place]. tel:[phone] OFFICE/OUTPA TIENT VISIT, [facility], [address], [place], [place], [address], [place] tel:[phone] [facility] HTN (chief complaint) iron deficiency 1 (chief complaint) eye pressure1 (chief complaint) Iron deficiencyMenorrhag iaEssential (primary) hypertensionOcular pain of eye Mar-2 3 Dejan Britt. [address], [address], [place], [place], [address] , [place]. tel:[phone] OFFICE/OUTPA TIENT VISIT, [facility], [address], [place], [place], [address], [place] tel:[phone] [facility] iron deficiency 1 (chief complaint) MenorrhagiaIron deficiency Jul- 3 Dejan Britt. [address], [address], [place], [place], [address] , [place]. tel:[phone] OFFICE/OUTPA TIENT VISIT, [facility], [address], [place], [place], [address], [place] tel:[phone] [facility] eye (chief complaint) wbc1 (chief complaint) Iron deficiencyLeukocyto sisSecondary polycythemiaOcular pain of eye Jul-0 3 Dejan Britt. [address], [place], [place], [address] , [place]. tel:[phone] OFFICE/OUTPA TIENT VISIT, [facility], [address], [place], [place], [address], [place] tel:[phone] [facility] eye1 (chief complaint) Chronic sinusitisOcular pain of eye Feb-0 3 Dejan Britt. [address], [address], [place], [place], [address] , [place]. tel:[phone] OFFICE/OUTPA TIENT VISIT, [facility], [address], [place], [place], [address], [place] tel:[phone] [facility] eye1 (chief complaint) Conjunctival hemorrhage, left eyeChronic sinusitis 3 Dejan Britt. [address], [place], [place], [address] , [place]. tel:[phone] OFFICE/OUTPA TIENT VISIT, [facility], [address], [place], [address], [place] tel:[phone] [facility] sniusitis1 (chief complaint) Chronic sinusitisHypertroph y of nasal turbinatesDeviated nasal septumOther polyp of sinus 3 Dejan Mathews [address], [place], [place], [address] , [place]. [phone] PREV VISIT, EST, AGE 40-64 [facility], [address] [place], [address], [place] tel:[phone] [facility] physical (chief complaint) Encounter for general adult medical exam w abnormal findingsHepatitis BChronic sinusitisAnemiaEsse ntial (primary) hypertensionDiarrhe a 3 Dejan Mathews [address] [facility], [place], [place], [address] , [place]. [phone] OFFICE/OUTPA TIENT VISIT, [facility], [address] [place] [place], [address], [place] tel:[phone] [facility] diarrhea1 (chief complaint) hep B (chief complaint) renal stone1 (chief complaint) wbc (chief complaint) HTN (chief complaint) Folate deficiencyLeukocyto sisHepatitis BDiarrheaRenal stoneEssential (primary) hypertensionDisorde r of adrenal gland, unspecified 2 Dejan Mathews [address], [place], [place], [address] , [place]. tel:[phone] OFFICE/OUTPA TIENT VISIT, [facility], [address] [place], [address], [place] tel:[phone] [facility] hep B (chief complaint) GI (chief complaint) WBC (chief complaint) folate (chief complaint) UTI1 (chief complaint) Hepatitis BUrticariaLeukocyto sisFolate deficiencyDiarrheaU rinary tract infectionAllergy to other foods 2 Dejan Mathews [address], [place], [place], [address] , [place]. tel: [phone] PREV VISIT, NEW, AGE 40-64 [facility], [address], [place], [place], [address], [place] tel:[phone] [facility] physical (chief complaint) Encounter for general adult medical exam w abnormal findingsUrticariaCh ronic duodenal ulcer without bleedingHepatitis BDiarrheaAbnormal weight gain Jul- 2 Dejan Britt. [address], [place], [place], [address] , [place]. tel:[phone] Family History Family Member Type Diagnosis Age At Onset Mother Problem hepatitis B Brother Problem hepatitis B Father Problem Alive and well Payers Payer name Insurance type Covered green party ID Authoriza titristian(s) BS CI [id number] Social History Type Description Quantity Date Captured Comments Alcohol Use Details No Caffeine Use Details Unknown Tobacco Use Status Current non-smoker Smoking Status Never smoker Sex Female Vital Signs Date / Time: Height Weight BMI Pulse Rate Blood Pressure Temperature Respiratory Rate Body Surface Area Head Circumference BMI percentile Pulse Ox Inhaled Ox 2:50 PM 62.00 in 120.00 lbs 21.9 5 kg/m eter (2) Chief Complaint And Reason For Visit From encounter dated '10/24/2024 14:45'. mammo (chief complaint). Description: Pt denies any breast issue Pt had screening mammo done which showed new focal left breast asymmetry. Pt denies any palpable nodule, redness ,warmth, drainage, etc. Pt denies any breast retractions Plan Of Treatment Date Type Action Status Referral Ordered: MAMMOGRAM, ONE BREAST ordered Referral Ordered: [facility] -Allopathic & Osteopathic Physicians : Obstetrics & Gynecology (related to Menorrhagia) ordered Referral Referred To: BAM BUSTAMANTE [address] [place], [place], [id number] Ordered: Referrals: Allopathic & Osteopathic Physicians : [...] Menorrhagia) ordered Referral Referred To: Master Bowser MD [address] [place], [place] [address]harriet Lemus [place], [place], [phone] Ordered: Referrals: Allopathic & Osteopathic Physicians : [...] Referred To: Carlos Manuel Harrell MD [address] [facility]
[place], [address] Ordered: Referrals: Carlos Manuel Harrell MD Evaluate and treat ordered Referral Referred To: Nate Mclain [address] [place], [place], [phone] Ordered: Referrals: Allopathic & Osteopathic Physicians : Internal Medicine : Gastroenterology. Nate Mclain. Evaluate and treat ordered Referral Ordered: COLONOSCOPY AND BIOPSY ordered Referral Ordered: MAMMOGRAM, SCREENING ordered History Of Present Illness Encounter Date Complaint History Of Prese nt Illness mammo Pt denies any br east issue Pt had screening mammo done which showed new focal left breast asymmetry. Pt denies any palpable nodule, redness ,warmth, drainage, etc. Pt denies any breast retractions allergy1 Pt c/o acute ons et of sneezing, itching nose, running nose, itchy eyes for 2-3 days Pt denies any cough, fever, headache. weight loss1 Pt has been losi ng weight since adrenal adenoma removal. Urine cortisol normal HLP Pt has mid HLP physical Pt needs annual physical Pt has chronic hep B. Pt is on anti viral medication Pt sees liver specialist. 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 Pt also is off BP meds. her bp is ok. pt overall feels well. Pt denies any other complaints renal stone1 Pt had right errol al [...] Pt denies any flank pain, fever, chill adrenal mass1 Pt has left adre nal mass on incidental finding HTN Pt has HTN pt ta kes bystolic and her bp is mildly high .Pt denies any chest pain or headache GERD1 Pt has intermitt ent GERD. CT showed moderate gastritis and esophagitis. Pt started pepcid since last week. Pt notices improvement of her GERD symptoms Pt denies any abd pain or nausea HTN Pt has HTN Pt ta kes bystolic and her bp is borderline high Pt was told to increase bystolic to 10 mg but she never did. Pt states that her bp is around 140/90 at home. pt states that her headache resolved Pt had normal MRI period1 Pt has heavy per iod. Pt saw another [facility] and she had pelvic ultrasound done which was benign Pt is not per patient from [facility] LFT Pt has high LFT. Pt denies any abd pain or jaundice .pt does have hep b. Pt sees GI. Pt denies any abd pain low phos1 Pt has low phos Pt denies any myalgia, weakness HTN Pt has HTN and s ome headache pt started bystolic 5 mg daily and her bp is still around 160/90. Pt denies any chest pain. Pt states that her headache has been stable, not worse iron deficiency1 Pt has iron def iciency due to menorrhagia. Pt has small fibroid Pt is seeing a new [employer] doctor now and she is getting work up now Pt has IUD. Pt states that she was given some pill and her heavy bleeding resolved headache1 Pt has been havi ng dull pressure headache and her bp has been consistently above 150/100 at home, Pt denies any chest pain or sob eye issue1 Pt has been feel ing pressure both eye for long time .Pt was evaluated by ophthalmology at [facility] recently and nothing was found. Pt denies any vision change .Pt denies any sinus pain or sore throat or hearing issue. Pt denies any dry eyes. fatigue1 Pt has been feel ing very fatigue .Pt denies any sob or chest pain. Pt denies any snoring HTN Pt went to see h er [facility] and her bp was around 180/100 at [facility] office. pt denies any chest pain or headache Pt denies any vision change. Pt is here for BP check iron deficiency1 Pt has rather s evere iron deficiency. Pt bojorquez have very heavy and prolonged period. Pt has IUD in place by [facility] but it did not help her slow down the bleeding Pt states that she has been bleeding slowly for 30 days Pt does have fibroid. Pt followed up with [facility] recently and she was started on some type of hormone pills by [facility] to try to stop bleeding but has not helped yet. Pt states that she feels very dizzy and fatigue all the time. eye pressure1 pt c/o bilateral eye pressure chronically and she saw billing specialist who did some lab work and [...] due to fibroid and she is seeing [facility] who started her on IUD but has [...] physical. Pt has heavy period Pt sees thermograph operator and she has fibroid. Pt does have heavy and persistent period. Pt is seeing [facility] now. Pt c/o chronic fatigue and dizziness. [...] anemic now. Pt denies ay other complaints wbc Pt has mildly hi gh wbc Pt denies any fever, chill HTN Pt states that u rologist told her to follow up in office due to HTN. Pt denies any chest pain or headache diarrhea1 Pt has chronic d iarrhea without blood. Pt has history of duodenal ulcer .Pt denies any abd pain. Pt denies any weight loss. Pt never did EGD and colonoscopy hep B Pt has hep B Pt saw [facility] and she was given order for [...] removal next week. Pt has normal [facility] GI Pt has chronic l oose stool [...] Pt does have multiple mild food allergy. hep B Pt has hepatitis B with large viral load. Pt denies any abd pain or jaundice. Pt has not seen hepatitis doctor for many years. WBC Pt has mildly hi gh WBC Pt denies any fever. Pt does have mild URI symptoms lately folate Pt has borderlin e low folate. Pt denies any fatigue UTI1 Pt denies any ur inary symptoms .Pt has group B strep physical Pt needs annual physical pt has [...] ewa GERD symptoms Instructions Date Instruction Additional Krystar khoi No Information Assessments Type Assessment Date assessment Lump in the left breast 025 Mental Status Date Cognitive Assessment Orientation - [place] ed to time, place, person, situation.
--- OUTSIDE RECORDS SUMMARY | 2024-12-26 07:56 | XMS_ITS | Clinical Summary ---
Author Organization [facility] Address [address] [place] [address] Phone Care Team Providers Care Bumper Straightener Name Role Phone Balwinder Wylie Primary Care Provider [phone] Allergies Active Allergy Reactions Criticality Noted Date Comments Fentanyl Rash Medium 07/29/2022 Hydromorphone Rash Medium 07/29/2022 Iodine Unknown 07/22/2021 Morphine Rash Medium 07/29/2022 Shrimp Extract Other (see Comments) Low 08/26/2022 N/a Medications levonorgestrel (Mirena, 52 MG,) 20 MCG/DAY IUD Mirena 21 mcg/24 hours (8 yrs) 52 mg intrauterine device Take by intrauterine route. Active nebivolol (BYSTOLIC) 5 MG Tablet [address] [facility]-S[facility] (Phospha 250 Neutral) 155-852-130 MG Tablet TAKE [...] 19+ 3-dose series) 1998 Pap Smear 2000 Human Papillomavirus (HPV) Immunization (1 - 3-dose SCDM series) 2006 Cervical Cancer Screening (CCS) 2009 HPV/Cotest 2009 Discussion re Starting/Frequ ency of Mammograms 2019 SARS-COV-2 Immunization (2023- season) 2024 Cologuard 2024 Colonoscopy 2024 Colorectal Cancer Screening 2024 Immunochemical Fecal Occult Blood 2024 Influenza Immunization (#1) 2025 Respiratory Syncytial Virus (RSV) Immunization (Adult) [...] patient's age to complete this topic Insurance [facility] Care Teams Bumper Straightener Relationship Specialty Start Date End Date Balwinder Wylie [address] [place] [address] PCP - General Family Medicine 07/22/22
--- OUTSIDE RECORDS SUMMARY | 2024-12-26 07:56 | XMS_ITS | Encounter Summary ---
Author Organization [facility] Address [address] [place] [address] Phone Care Team Providers Care Liquor Inspector Name Role Phone Balwinder Wylie Primary Care Provider [phone] Reason for Visit * Reason Comments Medication Refill Encounter Details Date Type Department Care Team (Late st Contact Info) Description 09/12/2022 Refill [facility] [address] [place] [address] Dann Georges MD [address] [place], [place] [id number] Medication Refill Social History Tobacco Use Types [...] on filedocumented in this encounter Care Teams Liquor Inspector Relationship Specialty Start Date End Date Balwinder Wylie [address] [place] [address] PCP - General Family Medicine 07/22/22 documented as of this encounter
== END 2024-12-26 07:49 | disposition home or self-care (01) ==
PROVIDERS: Visit Provider Internal Medicine Gastroenterology
DX: B18.1 Chronic viral hepatitis B without delta-agent (principal); Z79.899 Other long term (current) drug therapy
CPT/HCPCS: 76705